=== PATIENT | male | born 1970 ===

== ENCOUNTER 2020-09-14 19:37 | Emergency (ER) | payer OTHER, SELFPAY ==
--- NOTE | 2020-09-14 | ECG_ITS ---
Test Reason : HYPERTENSION Blood Pressure : / mmHG Vent. Rate : 116 BPM Atrial Rate : 117 BPM P-R Int : 134 ms QRS Dur : 096 ms QT Int : 332 ms P-R-T Axes : 052 -01 028 degrees QTc Int : 461 ms Sinus tachycardia Possible Left atrial enlargement Borderline ECG No previous ECGs available Referred By: Generic ED Physician Electronically Signed By:STACEY SORIA MD
[2020-09-14 20:06] LABS: COVID-19 Test Negative (Negative); IDNOW Serial# 9DD0AD1C
[2020-09-14 20:41] VITALS: BP 199/118; PULSE 127; RESP 17; TEMP 36.7; O2SAT 98; BMI 45.3
--- NOTE | 2020-09-14 21:08 | ED.WEAKNESS ---
HPI - Weakness General Chief complaint: Weakness Stated complaint: COVID SYMPTOMS Time Seen by Provider: 09/14/20 20:59 Source: patient Mode of arrival: ambulatory Limitations: no limitations History of Present Illness HPI Narrative: Patient comes emergency room complaining of weakness for 3 days. Patient denies cough, no fever, no chills, no chest pain, complaining of generalized malaise. Earlier this afternoon, patient got tested for COVID which was negative. Patient denies abdominal pain, no nausea vomiting or diarrhea. MD Complaint: generalized weakness Related Data Allergies Allergy/AdvReac Type Severity Reaction Status Date / Time aspirin Allergy Unknown Verified 09/14/20 20:44 Review of Systems Review of Systems: Constitutional : No Weight loss, No Fever, No Chills, No Night Sweats, complaining of fatigue and generalized malaise ENT/Mouth : No Hearing loss, No Ear Pain, No Nasal Congestion, No Sinus Pain, No Hoarseness, No sore throat, No Rhinorrhea, No Swallowing Difficulty Eyes: No Eye Pain, No Swelling, No Redness, No Foreign Body, No Discharge, No Vision Changes Cardiovascular : No Chest Pain, No SOB, No Dyspnea on Exertion, No Orthopnea, No Edema, No Palpitations Respiratory : No Cough, No Sputum, No Wheezing, No Smoke Exposure, No Dyspnea Gastrointestinal : No Nausea, No Vomiting, No Diarrhea, No Constipation, No abdominal Pain, No Hematochezia, No Melena Genitourinary : no irregular bleeding, No Dysuria, No Urinary Frequency, No Hematuria, No Urinary Incontinence, No Urgency, No Flank Pain, No Urinary Flow Changes, No Hesitancy Musculoskeletal : No joint pain, No Myalgias, No Joint Swelling Skin : No Skin Lesions, No rash Neuro : No Weakness, No Numbness, No Paresthesias, No Loss of Consciousness, No Dizziness, No Headache Psych : No Anxiety/Panic, complaining of chronic Depression, No SI/HI/AH/VH, No Social Issues, Heme/Lymph: No Bruising, No Bleeding,No Lymphadenopathy Endocrine : No Polyuria, No Polydipsia, No Temperature Intolerance PMFSH Past Medical History Medical History Anxiety Depressed Diabetes mellitus type 2 in obese High cholesterol HTN (hypertension) Social History Social History Alcohol intake: never Smoking Status: Never smoker Use of substances other than those prescribed or required for medical reasons: No Advance Directives: No Advance Directives Information Provided: No Physical Exam Vital Signs: Vital Signs: Last Vital Signs Temp 99.0 F 09/14/20 22:29 Pulse 99 09/14/20 22:29 Resp 17 09/14/20 22:29 BP 147/72 H 09/14/20 22:29 Pulse Ox 99 09/14/20 22:29 Body Mass Index 45.3 Appearance: Alert. Oriented X3. No acute distress. Eyes: Pupils equal, round and reactive to light. ENT: Pharynx normal. Neck: Normal inspection. Neck supple. No lymph nodes noted. No crepitus CVS: Normal heart rate and rhythm. Pulses normal. Normal S1 and S2 Respiratory: No respiratory distress. Breath sounds normal. No Wheezing. No rales Abdomen: Soft and nontender. No rigidity. No distention. good BS x4 Skin: Skin warm and dry. Normal skin color. Normal skin turgor. Extremities: No lower extremity edema. No lower extremity edema. No Lacerations. No Rash Neuro: Oriented X 3. No motor deficit. No sensory deficit. Moving all extermities. No slurred speech. Course Course Course Narrative: I discussed the labs with the patient, patient feels less anxious. Patient's vitals stable, blood pressure is now 147/22. COVID 19 test was negative. Although patient is weak, patient states that he is able to walk, take care of himself, patient's at bedside who will also help care for the patient. Patient states that he thinks that his depression is getting worse, he will follow up with his primary care physician. Patient denies suicidal or homicidal ideation MDM - Weakness Lab Data Result diagrams: 09/14/20 21:15 09/14/20 21:15 Labs: Lab Results 09/14/20 09/14/20 09/14/20 Range/Units 19:41 21:15 21:15 WBC 10.5 (4.8-10.8) X10*3/uL RBC 5.80 (4.60-5.80) X10*6/uL Hgb 16.3 (14.0-18.0) g/dl Hct 49.6 (42-52) % MCV 85.5 (80-98) fL MCH 28.1 (27.0-33.0) pg MCHC 32.9 (31.0-36.0) g/dl RDW 15.0 (11.0-16.0) % Plt Count 221 (160-400) X10*3/uL MPV 10.4 (9.4-12.4) fL Immature Gran % (Auto) 0.3 (0.0-0.4) % Neut % (Auto) 77.8 H (45-73) % Lymph % (Auto) 14.2 L (20-40) % [place] % (Auto) 7.1 (2-11) % Eos % (Auto) 0.3 (0-4) % Baso % (Auto) 0.3 (0-2) % Lymph # (Auto) 1.5 (1.2-4.9) X10*3/uL [place] # (Auto) 0.7 (0.1-1.2) X10*3/uL Eos # (Auto) 0.0 (0.0-0.4) X10*3/uL Baso # (Auto) 0.0 (0.0-0.2) X10*3/uL Abs Immat Gran (auto) 0.03 (0.00-0.03) X10*3/uL Absolute Neuts (auto) 8.2 (2.0-8.3) X10*3/uL Absolute Nucleated RBC 0.000 (0.0-0.012) X10*3/uL Nucleated RBC % (auto) 0.0 (0.0-0.2) /100WBC Sodium 140 (135-145) mmol/L Potassium 3.7 (3.3-5.1) mmol/L Chloride 105 (96-108) mmol/L Carbon Dioxide 22 (22-29) mmol/L Anion Gap 17 (12-20) BUN 20 H (9-16) mg/dL Creatinine 0.98 (0.5-1.4) mg/dL Estim Creat Clear Calc 134.3 Estimated GFR > 60 Random Glucose 160 H (60-115) mg/dL Calcium 9.4 (8.4-10.2) mg/dL Total Bilirubin 0.5 (0.0-1.0) mg/dL Direct Bilirubin 0.2 (0.0-0.5) mg/dL AST 23 (5-37) U/L ALT 43 H (0-40) U/L Alkaline Phosphatase 96 (39-117) U/L Total Protein 7.3 (6.5-8.0) g/dL Albumin 4.4 (3.5-5.0) g/dL Lipase 34 (8-78) U/L COVID-19 (SAY) Negative (Negative) COVID-19 Clin Com See Note ECG Data Attestation: I personally reviewed and interpreted this ECG as follows: (Sinus tachycardia, heart rate 116, no ST segment depression or elevation, not to inversion, QTC 461) Discharge Plan Discharge Clinical Impression: Generalized weakness Patient Disposition: Home, Self-Care Instructions: Weakness (ED) Additional Instructions: Please follow-up with your primary care physician tomorrow. If you have any worsening or new symptoms, please return to the emergency room or call 911 Interventions: ED Discharge Assessment Last Done: 09/14/20 22:52 Discharge Date/Time: 09/14/20 22:52
[2020-09-14 21:19] LABS: MANUAL DIFF FLAG NO
[2020-09-14 21:23] LABS: Basophils Percent Auto 0.3 % (0-2); Eosinophils Percent Auto 0.3 % (0-4); Hematocrit 49.6 % (42-52); Hemoglobin 16.3 g/dl (14.0-18.0); Imm Gran Abs Auto 0.03 X10*3/uL (0.00-0.03); Imm Gran Pct Auto 0.3 % (0.0-0.4); Lymphocytes Absolute Auto 1.5 X10*3/uL (1.2-4.9); Lymphocytes Percent Auto 14.2 % (20-40); Mean Corpuscular HGB Conc 32.9 g/dl (31.0-36.0); Mean Corpuscular Hemoglobin 28.1 pg (27.0-33.0); Mean Corpuscular Volume 85.5 fL (80-98); Mean Platelet Volume 10.4 fL (9.4-12.4); Monocytes Absolute Auto 0.7 X10*3/uL (0.1-1.2); Monocytes Percent Auto 7.1 % (2-11); Neutrophils Absolute Auto 8.2 X10*3/uL (2.0-8.3); Neutrophils Percent Auto 77.8 % (45-73); Platelet Count 221 X10*3/uL (160-400); White Blood Count 10.5 X10*3/uL (4.8-10.8)
[2020-09-14 21:45] LABS: Alanine Aminotransferase 43 U/L (0-40); Albumin Level 4.4 g/dL (3.5-5.0); Alkaline Phosphatase 96 U/L (39-117); Anion Gap 17 (12-20); Aspartate Amino Transferase 23 U/L (5-37); Bilirubin Direct 0.2 mg/dL (0.0-0.5); Bilirubin Total 0.5 mg/dL (0.0-1.0); Blood Urea Nitrogen 20 mg/dL (9-16); Calcium 9.4 mg/dL (8.4-10.2); Carbon Dioxide 22 mmol/L (22-29); Chloride 105 mmol/L (96-108); Creatinine Clr Calc Pharmacy 134.3; Estimated Glomerular Filt Rate > 60; Glucose Random 160 mg/dL (60-115); Lipase 34 U/L (8-78); Potassium 3.7 mmol/L (3.3-5.1); Sodium 140 mmol/L (135-145); Total Protein 7.3 g/dL (6.5-8.0)
[2020-09-14 22:29] VITALS: BP 147/72; PULSE 99; RESP 17; TEMP 37.2; O2SAT 99
== END 2020-09-14 22:52 | disposition home or self-care (01) ==
PROVIDERS: Emergency Provider Emergency Medicine
DX: R53.1 Weakness (principal); R00.0 Tachycardia, unspecified; Z20.822 Contact with and (suspected) exposure to COVID-19; F41.9 Anxiety disorder, unspecified; E11.9 Type 2 diabetes mellitus without complications; I10 Essential (primary) hypertension
CPT/HCPCS: 36415; 80048; 80076; 83690; 85025; 87635; 93005; 99283; 99284

== ENCOUNTER 2022-08-24 17:50 | Emergency (ER) | payer OTHER, SELFPAY ==
[2022-08-24 18:25] VITALS: BP 173/104; PULSE 108; RESP 18; TEMP 36.8; O2SAT 98; BMI 43.9
--- NOTE | 2022-08-24 18:25 | ED_ITS ---
HPI - Abdominal Pain General Chief Complaint: Abdominal Pain <YUSUF Mclean - Last Filed: 08/24/22 18:30> Stated Complaint: Severe, sharp abd pain, bloody stool, weak <YUSUF Mclean - Last Filed: 08/24/22 18:30> Time Seen by Provider: 08/24/22 21:37 <YUSUF Mclean - Last Filed: 08/24/22 18:30> Source: patient <Erick Marie MD - Last Filed: 08/25/22 03:01> Mode of arrival: ambulatory <Erick Marie MD - Last Filed: 08/25/22 03:01> Limitations: no limitations <Erick Marie MD - Last Filed: 08/25/22 03:01> History of Present Illness HPI narrative: Patient history of peptic ulcer disease status post surgery about 25 years ago usually asymptomatic taking Prilosec 40 mg daily noticed dark and lose stool for last 3 days getting news reporter now with epigastric pain no nausea no vomiting patient took Pepto-Bismol but stools were dark before he took Pepto-Bismol. No nausea no vomiting no dizziness labs were done prior to my evaluation showed hemoglobin of 16.2 with hematocrit 50.2 same as in 2020 patient chemistries normal with lipase normal vital stable. Pain gets worse when patient eats something <Erick Marie MD - Last Filed: 08/25/22 03:01> Related Data Home Medications: Previous Rx's Medication Instructions Recorded sucralfate 1 gram tablet 1 g PO TID #90 tabs 08/24/22 <YUSUF Mclean - Last Filed: 08/24/22 18:30> Allergies/Adverse Reactions: Allergies Allergy/AdvReac Type Severity Reaction Status Date / Time aspirin Allergy Unknown Verified 09/14/20 20:44 <YUSUF Mclean - Last Filed: 08/24/22 18:30> Review of Systems Review of Systems Yes all other systems are reviewed and are negative <Erick Marie MD - Last Filed: 08/25/22 03:01> PMFSH Past Medical History Medical History: Medical History Anxiety Depressed Diabetes mellitus type 2 in obese High cholesterol HTN (hypertension) <YUSUF Mclean - Last Filed: 08/24/22 18:30> Social History Social History: Social History Alcohol intake: never Smoked in Last 30 Days: No Use of substances other than those prescribed or required for medical reasons: No Advance Directives: Yes Advance Directives Information Provided: Yes Advance Directives on File: No <YUSUF Mclean - Last Filed: 08/24/22 18:30> Physical Exam ED Vital Signs: Vital Signs - 24 hr 08/24/22 18:25 08/24/22 21:53 Temperature 98.2 F 98.0 F Pulse Rate 108 H 99 Respiratory Rate 18 18 Blood Pressure 173/104 H 144/84 H Pulse Oximetry 98 95 Oxygen Delivery Method Room Air Room Air BMI result Body Mass Index 43.9 <YUSUF Mclean - Last Filed: 08/24/22 18:30> Vital Signs - 24 hr 08/24/22 18:25 08/24/22 21:53 Temperature 98.2 F 98.0 F Pulse Rate 108 H 99 Respiratory Rate 18 18 Blood Pressure 173/104 H 144/84 H Pulse Oximetry 98 95 Oxygen Delivery Method Room Air Room Air BMI result Body Mass Index 43.9 <Erick Marie MD - Last Filed: 08/25/22 03:01> Appearance: Alert. Oriented X3. No acute distress. Eyes: PERRLA, no pallor ENT: Pharynx normal. Oral Mucosa moist Neck: Normal inspection. Neck supple. CVS: Normal heart rate and rhythm. Pulses normal. Respiratory: No respiratory distress. Equal air entry bilateral, no wheezi ng/rales/rhonchi Abdomen: Soft and tender in epigastric. Bowel sounds are present, no mass palpable, no CVA tenderness rectal: Patient refused Skin: Skin warm and dry. Normal skin color. Normal skin turgor. Extremities: No lower extremity edema. No calf tenderness Neuro: Oriented X 3. No motor deficit. <Erick Marie MD - Last Filed: 08/25/22 03:01> Course Course Course Narrative: RME - 51 yo Urdu speaking male with history of obesity, HTN, anxiety/depression, sciatica presents to the ER for evaluation of severe, sharp central abdominal pains along with several episodes of black bowel movements that started 3 days ago. Reports history of duodenal ulcers several years ago associated with anemia and required transfusion. Feels dizzy and weak. BP elevated 210/112, HR 110 in triage. Plan: labs, coags, will need ERIC and PPI - r/o UGIB <YUSUF Mclean - Last Filed: 08/24/22 18:30> Medical Decision Making Medical Decision Making MDM Narrative: Patient with peptic ulcer disease with dark stool with stable H&H patient refused rectal exam and says that stool are getting news reporter. Patient advised to follow with architectural engineering teacher for endoscopy.. <Erick Marie MD - Last Filed: 08/25/22 03:01> Lab Data [facility] Lab Attestation statement: I reviewed the patient's lab results. <Erick Marie MD - Last Filed: 08/25/22 03:01> Result Diagrams: 08/24/22 18:39 08/24/22 18:39 <YUSUF Mclean - Last Filed: 08/24/22 18:30> Labs: Lab Results 08/24/22 08/24/22 08/24/22 Range/Units 18:39 18:39 18:39 WBC 7.9 (4.8-10.8) X10*3/uL RBC 5.73 (4.60-5.80) X10*6/uL Hgb 16.2 (14.0-18.0) g/dl Hct 50.2 (42.0-52.0) % MCV 87.6 (80.0-98.0) fL MCH 28.3 (27.0-33.0) pg MCHC 32.3 (31.0-36.0) g/dl RDW 15.2 (11.0-16.0) % Plt Count 223 (160-400) X10*3/uL MPV 10.0 (9.4-12.4) fL Immature Gran % (Auto) 0.1 (0.0-0.4) % Neut % (Auto) 67.1 (45-73) % Lymph % (Auto) 23.1 (20-40) % [place] % (Auto) 7.4 (2-11) % Eos % (Auto) 1.9 (0-4) % Baso % (Auto) 0.4 (0-2) % Lymph # (Auto) 1.8 (1.2-4.9) X10*3/uL [place] # (Auto) 0.6 (0.1-1.2) X10*3/uL Eos # (Auto) 0.2 (0.0-0.4) X10*3/uL Baso # (Auto) 0.0 (0.0-0.2) X10*3/uL Abs Immat Gran (auto) 0.01 (0.00-0.03) X10*3/uL Absolute Neuts (auto) 5.3 (2.0-8.3) x10*3/uL Absolute Nucleated RBC 0.000 (0.0-0.012) X10*3/uL Nucleated RBC % (auto) 0.0 (0.0-0.2) /100WBC PT 11.5 (10.0-13.1) SEC INR 1.0 (0.9-1.1) APTT 32.1 (26.0-36.4) SEC Sodium 141 (135-145) mmol/L Potassium 3.9 (3.3-5.1) mmol/L Chloride 108 (96-108) mmol/L Carbon Dioxide 27 (22-29) mmol/L Anion Gap 10 L (12-20) BUN 10 (9-16) mg/dL Creatinine 0.90 (0.5-1.4) mg/dL Estim Creat Clear Calc 140.5 Estimated GFR > 60 Random Glucose 101 (60-115) mg/dL Calcium 8.9 (8.4-10.2) mg/dL Magnesium 2.0 (1.6-2.6) mg/dL Total Bilirubin 0.5 (0.0-1.0) mg/dL Direct Bilirubin < 0.2 (0.0-0.5) mg/dL AST 20 (5-37) U/L ALT 31 (0-40) U/L Alkaline Phosphatase 108 (39-117) U/L Total Protein 6.9 (6.5-8.0) g/dL Albumin 4.0 (3.5-5.0) g/dL Lipase 18 (8-78) U/L Urine Color Urine Appearance Urine pH (5.0-9.0) Ur Specific [place] (1.005-1.025) Urine Protein (Neg-Trace) mg/dL Urine Glucose (UA) (Negative) mg/dL Urine Ketones (Negative) mg/dL Urine Blood (Negative) Urine Nitrite (Negative) Ur Leukocyte Esterase (Negative) 08/24/22 Range/Units 21:49 WBC (4.8-10.8) X10*3/uL RBC (4.60-5.80) X10*6/uL Hgb (14.0-18.0) g/dl Hct (42.0-52.0) % MCV (80.0-98.0) fL MCH (27.0-33.0) pg MCHC (31.0-36.0) g/dl RDW (11.0-16.0) % Plt Count (160-400) X10*3/uL MPV (9.4-12.4) fL Immature Gran % (Auto) (0.0-0.4) % Neut % (Auto) (45-73) % Lymph % (Auto) (20-40) % [place] % (Auto) (2-11) % Eos % (Auto) (0-4) % Baso % (Auto) (0-2) % Lymph # (Auto) (1.2-4.9) X10*3/uL [place] # (Auto) (0.1-1.2) X10*3/uL Eos # (Auto) (0.0-0.4) X10*3/uL Baso # (Auto) (0.0-0.2) X10*3/uL Abs Immat Gran (auto) (0.00-0.03) X10*3/uL Absolute Neuts (auto) (2.0-8.3) x10*3/uL Absolute Nucleated RBC (0.0-0.012) X10*3/uL Nucleated RBC % (auto) (0.0-0.2) /100WBC PT (10.0-13.1) SEC INR (0.9-1.1) APTT (26.0-36.4) SEC Sodium (135-145) mmol/L Potassium (3.3-5.1) mmol/L Chloride (96-108) mmol/L Carbon Dioxide (22-29) mmol/L Anion Gap (12-20) BUN (9-16) mg/dL Creatinine (0.5-1.4) mg/dL Estim Creat Clear Calc Estimated GFR Random Glucose (60-115) mg/dL Calcium (8.4-10.2) mg/dL Magnesium (1.6-2.6) mg/dL Total Bilirubin (0.0-1.0) mg/dL Direct Bilirubin (0.0-0.5) mg/dL AST (5-37) U/L ALT (0-40) U/L Alkaline Phosphatase (39-117) U/L Total Protein (6.5-8.0) g/dL Albumin (3.5-5.0) g/dL Lipase (8-78) U/L Urine Color Yellow Urine Appearance Clear Urine pH 5.5 (5.0-9.0) Ur Specific [place] >= 1.030 H (1.005-1.025) Urine Protein Trace (Neg-Trace) mg/dL Urine Glucose (UA) Negative (Negative) mg/dL Urine Ketones Negative (Negative) mg/dL Urine Blood Negative (Negative) Urine Nitrite Negative (Negative) Ur Leukocyte Esterase Negative (Negative) <YUSUF Mclean - Last Filed: 08/24/22 18:30> Lab Results 08/24/22 08/24/22 08/24/22 Range/Units 18:39 18:39 18:39 WBC 7.9 (4.8-10.8) X10*3/uL RBC 5.73 (4.60-5.80) X10*6/uL Hgb 16.2 (14.0-18.0) g/dl Hct 50.2 (42.0-52.0) % MCV 87.6 (80.0-98.0) fL MCH 28.3 (27.0-33.0) pg MCHC 32.3 (31.0-36.0) g/dl RDW 15.2 (11.0-16.0) % Plt Count 223 (160-400) X10*3/uL MPV 10.0 (9.4-12.4) fL Immature Gran % (Auto) 0.1 (0.0-0.4) % Neut % (Auto) 67.1 (45-73) % Lymph % (Auto) 23.1 (20-40) % [place] % (Auto) 7.4 (2-11) % Eos % (Auto) 1.9 (0-4) % Baso % (Auto) 0.4 (0-2) % Lymph # (Auto) 1.8 (1.2-4.9) X10*3/uL [place] # (Auto) 0.6 (0.1-1.2) X10*3/uL Eos # (Auto) 0.2 (0.0-0.4) X10*3/uL Baso # (Auto) 0.0 (0.0-0.2) X10*3/uL Abs Immat Gran (auto) 0.01 (0.00-0.03) X10*3/uL Absolute Neuts (auto) 5.3 (2.0-8.3) x10*3/uL Absolute Nucleated RBC 0.000 (0.0-0.012) X10*3/uL Nucleated RBC % (auto) 0.0 (0.0-0.2) /100WBC PT 11.5 (10.0-13.1) SEC INR 1.0 (0.9-1.1) APTT 32.1 (26.0-36.4) SEC Sodium 141 (135-145) mmol/L Potassium 3.9 (3.3-5.1) mmol/L Chloride 108 (96-108) mmol/L Carbon Dioxide 27 (22-29) mmol/L Anion Gap 10 L (12-20) BUN 10 (9-16) mg/dL Creatinine 0.90 (0.5-1.4) mg/dL Estim Creat Clear Calc 140.5 Estimated GFR > 60 Random Glucose 101 (60-115) mg/dL Calcium 8.9 (8.4-10.2) mg/dL Magnesium 2.0 (1.6-2.6) mg/dL Total Bilirubin 0.5 (0.0-1.0) mg/dL Direct Bilirubin < 0.2 (0.0-0.5) mg/dL AST 20 (5-37) U/L ALT 31 (0-40) U/L Alkaline Phosphatase 108 (39-117) U/L Total Protein 6.9 (6.5-8.0) g/dL Albumin 4.0 (3.5-5.0) g/dL Lipase 18 (8-78) U/L Urine Color Urine Appearance Urine pH (5.0-9.0) Ur Specific [place] (1.005-1.025) Urine Protein (Neg-Trace) mg/dL Urine Glucose (UA) (Negative) mg/dL Urine Ketones (Negative) mg/dL Urine Blood (Negative) Urine Nitrite (Negative) Ur Leukocyte Esterase (Negative) 08/24/22 Range/Units 21:49 WBC (4.8-10.8) X10*3/uL RBC (4.60-5.80) X10*6/uL Hgb (14.0-18.0) g/dl Hct (42.0-52.0) % MCV (80.0-98.0) fL MCH (27.0-33.0) pg MCHC (31.0-36.0) g/dl RDW (11.0-16.0) % Plt Count (160-400) X10*3/uL MPV (9.4-12.4) fL Immature Gran % (Auto) (0.0-0.4) % Neut % (Auto) (45-73) % Lymph % (Auto) (20-40) % [place] % (Auto) (2-11) % Eos % (Auto) (0-4) % Baso % (Auto) (0-2) % Lymph # (Auto) (1.2-4.9) X10*3/uL [place] # (Auto) (0.1-1.2) X10*3/uL Eos # (Auto) (0.0-0.4) X10*3/uL Baso # (Auto) (0.0-0.2) X10*3/uL Abs Immat Gran (auto) (0.00-0.03) X10*3/uL Absolute Neuts (auto) (2.0-8.3) x10*3/uL Absolute Nucleated RBC (0.0-0.012) X10*3/uL Nucleated RBC % (auto) (0.0-0.2) /100WBC PT (10.0-13.1) SEC INR (0.9-1.1) APTT (26.0-36.4) SEC Sodium (135-145) mmol/L Potassium (3.3-5.1) mmol/L Chloride (96-108) mmol/L Carbon Dioxide (22-29) mmol/L Anion Gap (12-20) BUN (9-16) mg/dL Creatinine (0.5-1.4) mg/dL Estim Creat Clear Calc Estimated GFR Random Glucose (60-115) mg/dL Calcium (8.4-10.2) mg/dL Magnesium (1.6-2.6) mg/dL Total Bilirubin (0.0-1.0) mg/dL Direct Bilirubin (0.0-0.5) mg/dL AST (5-37) U/L ALT (0-40) U/L Alkaline Phosphatase (39-117) U/L Total Protein (6.5-8.0) g/dL Albumin (3.5-5.0) g/dL Lipase (8-78) U/L Urine Color Yellow Urine Appearance Clear Urine pH 5.5 (5.0-9.0) Ur Specific [place] >= 1.030 H (1.005-1.025) Urine Protein Trace (Neg-Trace) mg/dL Urine Glucose (UA) Negative (Negative) mg/dL Urine Ketones Negative (Negative) mg/dL Urine Blood Negative (Negative) Urine Nitrite Negative (Negative) Ur Leukocyte Esterase Negative (Negative) <Erick Marie MD - Last Filed: 08/25/22 03:01> Medications Administered Discontinued Medications Generic Name Dose Route Start Last Admin Trade Name Freq PRN Reason Stop Dose Admin Al Hydroxide/Mg Hydroxide 30 ml 08/24/22 22:01 08/24/22 22:37 Magnesium Hydrox/Alum Hydrox 30 Ml Oral.Susp PO 08/24/22 22:02 30 ml ONCE ONE Administration Dicyclomine HCl 20 mg 08/24/22 22:01 08/24/22 22:37 Dicyclomine Hcl 10 Mg Capsule PO 08/24/22 22:02 20 mg ONCE ONE Administration Lidocaine HCl 15 ml 08/24/22 22:01 08/24/22 22:37 Lidocaine Hcl Viscous 2 % 15 Ml Solution MUCOUS MEM 08/24/22 22:02 15 ml ONCE ONE Administration <YUSUF Mclean - Last Filed: 08/24/22 18:30> Medications Administered Discontinued Medications Generic Name Dose Route Start Last Admin Trade Name Vincenzo PRN Reason Stop Dose Admin Al Hydroxide/Mg Hydroxide 30 ml 08/24/22 22:01 08/24/22 22:37 Magnesium Hydrox/Alum Hydrox 30 Ml Oral.Susp PO 08/24/22 22:02 30 ml ONCE ONE Administration Dicyclomine HCl 20 mg 08/24/22 22:01 08/24/22 22:37 Dicyclomine Hcl 10 Mg Capsule PO 08/24/22 22:02 20 mg ONCE ONE Administration Lidocaine HCl 15 ml 08/24/22 22:01 08/24/22 22:37 Lidocaine Hcl Viscous 2 % 15 Ml Solution MUCOUS MEM 08/24/22 22:02 15 ml ONCE ONE Administration <Erick Marie MD - Last Filed: 08/25/22 03:01> Discharge Plan Discharge Clinical Impression: Peptic ulcer disease <YUSUF Mclean - Last Filed: 08/24/22 18:30> Patient Disposition: Home, Self-Care <YUSUF Mclean - Last Filed: 08/24/22 18:30> Instructions: Peptic Ulcer (ED) <YUSUF Mclean - Last Filed: 08/24/22 18:30> Additional Instructions: Avoid spicy and fried food Increased dose of Prilosec to 40 mg twice daily Start taking sucralfate 1 tablet half an hour prior to meals Follow-up with architectural engineering teacher for further evaluation including last couple Report to the ER if vomiting blood <YUSUF Mclean - Last Filed: 08/24/22 18:30> Prescriptions: New sucralfate 1 gram tablet 1 g PO TID Qty: 90 0RF <YUSUF Mclean - Last Filed: 08/24/22 18:30> Referrals: Eric Segal [Physician] - 1 week <YUSUF Mclean - Last Filed: 08/24/22 18:30> Interventions: ED Discharge Assessment Last Done: 08/24/22 22:45 <YUSUF Mclean - Last Filed: 08/24/22 18:30> Discharge Date/Time: 08/24/22 22:46 <YUSUF Mclean - Last Filed: 08/24/22 18:30>
[2022-08-24 18:52] LABS: MANUAL DIFF FLAG NO
[2022-08-24 18:58] LABS: Basophils Percent Auto 0.4 % (0-2); Eosinophils Absolute Auto 0.2 X10*3/uL (0.0-0.4); Eosinophils Percent Auto 1.9 % (0-4); Hematocrit 50.2 % (42.0-52.0); Hemoglobin 16.2 g/dl (14.0-18.0); Imm Gran Abs Auto 0.01 X10*3/uL (0.00-0.03); Imm Gran Pct Auto 0.1 % (0.0-0.4); Lymphocytes Absolute Auto 1.8 X10*3/uL (1.2-4.9); Lymphocytes Percent Auto 23.1 % (20-40); Mean Corpuscular HGB Conc 32.3 g/dl (31.0-36.0); Mean Corpuscular Hemoglobin 28.3 pg (27.0-33.0); Mean Corpuscular Volume 87.6 fL (80.0-98.0); Monocytes Absolute Auto 0.6 X10*3/uL (0.1-1.2); Monocytes Percent Auto 7.4 % (2-11); Neutrophils Absolute Auto 5.3 x10*3/uL (2.0-8.3); Neutrophils Percent Auto 67.1 % (45-73); Platelet Count 223 X10*3/uL (160-400); Red Blood Count 5.73 X10*6/uL (4.60-5.80); Red Cell Distribution Width 15.2 % (11.0-16.0); White Blood Count 7.9 X10*3/uL (4.8-10.8)
[2022-08-24 19:05] LABS: Prothrombin Time 11.5 SEC (10.0-13.1)
[2022-08-24 19:08] LABS: Partial Thromboplastin Time 32.1 SEC (26.0-36.4)
[2022-08-24 19:21] LABS: Alanine Aminotransferase 31 U/L (0-40); Alkaline Phosphatase 108 U/L (39-117); Anion Gap 10 (12-20); Aspartate Amino Transferase 20 U/L (5-37); Bilirubin Direct < 0.2 mg/dL (0.0-0.5); Bilirubin Total 0.5 mg/dL (0.0-1.0); Blood Urea Nitrogen 10 mg/dL (9-16); Calcium 8.9 mg/dL (8.4-10.2); Carbon Dioxide 27 mmol/L (22-29); Chloride 108 mmol/L (96-108); Creatinine Clr Calc Pharmacy 140.5; Estimated Glomerular Filt Rate > 60; Glucose Random 101 mg/dL (60-115); Lipase 18 U/L (8-78); Potassium 3.9 mmol/L (3.3-5.1); Sodium 141 mmol/L (135-145); Total Protein 6.9 g/dL (6.5-8.0)
[2022-08-24 21:53] VITALS: BP 144/84; PULSE 99; RESP 18; TEMP 36.7; O2SAT 95
[2022-08-24 21:57] LABS: Appearance Urine Clear; Color Urine Yellow; Glucose Urine UA Negative (Negative); Leukocyte Esterase Urine Negative (Negative); Nitrite Urine Negative (Negative); PH 5.5 (5.0-9.0); Specific Gravity - Urine >= 1.030 (1.005-1.025); Urine Blood Negative (Negative); Urine Ketones Negative (Negative); Urine Protein Trace mg/dL (Neg-Trace)
[2022-08-24] MEDS: Magnesium Hydrox/Alum Hydrox 30 ML ORAL.SUSP PO (22:37)
[2022-08-24] MEDS: Dicyclomine HCl 10 MG CAPSULE 20 MG PO (22:37)
[2022-08-24] MEDS: Lidocaine HCl Viscous 2 % 15 ML SOLUTION MUCOUS MEM (22:37)
== END 2022-08-24 22:46 | disposition home or self-care (01) ==
PROVIDERS: Physician Assistant; Emergency Provider Internal Medicine
DX: K26.9 Duodenal ulcer, unspecified as acute or chronic, without hemorrhage or perforation (principal); I10 Essential (primary) hypertension; E11.9 Type 2 diabetes mellitus without complications; E78.5 Hyperlipidemia, unspecified; E66.9 Obesity, unspecified; Z68.41 Body mass index [BMI] 40.0-44.9, adult
CPT/HCPCS: 36415; 80048; 80076; 81003; 83690; 83735; 85025; 85610; 85730; 99283; 99284

== ENCOUNTER 2023-04-30 10:07 | Outpatient (AMB) | payer MEDICARE, MEDICAID, SELFPAY ==
[2023-04-30 10:08] VITALS: BP 168/98; PULSE 89; O2SAT 96; BMI 42.6
--- NOTE | 2023-04-30 10:08 | A.OFFPC_ITS ---
Vital Signs 04/30/23 10:08 Height 6 ft Weight 314 lb BMI 42.6 BP 168/98 H Blood Pressure Location Lt brachial Position Sitting Pulse 89 Pulse Source Pulse Oximeter Pulse Oximetry (%) 96 Oxygen Delivery Method Room Air Intake Visit Reasons: est care Intake Note: 52 y/o male here to establish care Back Stayer Required: Yes Back Stayer Language: Public Health Director Name: Estefanía [id number] Information Interpreted: non-clinical & clinical Allergies No Known Allergies Allergy (Verified 04/30/23 10:32) Medication List - Last Reconciled 04/30/23 by DANIEL Dobbs acetaminophen 500 mg PO Q6H PRN amlodipine 10 mg PO DAILY atorvastatin 20 mg PO DAILY diclofenac sodium 1% 1 - 2 grams topical BID duloxetine 30 mg PO DAILY famotidine 20 mg PO DAILY lidocaine 5% patches topical metformin ER 500 mg PO QAM metoprolol succinate ER 100 mg PO DAILY Tobacco use date assessed: 04/30/23 Dental Screening Dental Screen Date: 04/30/23 Did you have a dental visit in the last 12 months?: No Did you have a dental problem in the last 6 months where you did not have access to dental care?: No HPI HPI Comments History of Present Illness Details 52-year-old male new patient presents to day to establish care. Past medical history significant for hypertension, hypercholesteremia, type 2 diabetes mellitus GERD, depression, anxiety and obstructive sleep apnea, left- sided sciatica pain. Patient uses CPAP machine for greater than 4 hours night and benefits from this. Patient requesting referral to pulmonology as he requires new CPAP supplies, referral entered. Hemoglobin A1c 6.5% today. Blood pressure elevated office today 168/98. Patient requesting refill on Lidoderm patches, refill sent to patient's pharmacy. previous patient: [facility]. [facility] Medical History (Updated 04/30/23 @ 10:59 by DANIEL Dobbs) Duodenal ulcer Meniscus, lateral, derangement Left sided sciatica Gout Vitamin D deficiency Family History (Updated 04/30/23 @ 10:39 by DANIEL Dobbs) Mother No problems noted. Father No problems noted. Social History (Updated 04/30/23 @ 10:40 by DANIEL Dobbs) Alcohol intake: never Patient Tobacco Use Status: Never used Tobacco e-Cigarette/Vaping Use: Never Used Use of substances other than those prescribed or required for medical reasons: No service: No Cognitive needs: No Hearing needs: No Vision needs: No Questionnaire PHQ-9 Over the last 2 weeks, how often have you been bothered by any of the following problems? 1. Little interest or pleasure in doing things: several days 2. Feeling down, depressed, or hopeless: several days 3. Trouble falling or staying asleep, or sleeping too much: several days 4. Feeling tired or having little energy: not at all 5. Poor appetite or overeating: not at all 6. Feeling bad about yourself - or that you are a failure or have let yourself or your family down: not at all 7. Trouble concentrating on things, such as reading the newspaper or watching television: not at all 8. Moving or speaking so slowly that other people could have noticed. Or the opposite - being so fidgety or restless that you have been moving around a lot more than usual: not at all 9. Thoughts that you would be better off or of hurting yourself in some way: not at all Total score: 3 Depression Screening Interpretation: Negative Depression Screening Done: Yes 15854 - PHQ-9 Billing: Yes Source: Developed by Drs. Jos Field, Keesha Green, Lincoln Maldonado and colleagues, with an educational ajay from [employer]. Thrive Questionnaire Date Thrive assessed: 04/30/23 I am a: Patient What is your living situation today?: I have a steady place to live Within the past 12 months, did the food you bought not last and you didn't have the money to get more?: Never true Within the past 12 months, did you worry whether your food would run out before you got money to buy more?: Never true Do you have trouble paying for medicines?: No Do you have trouble getting transportation to medical appointments?: No Do you have trouble paying your heating and electricity bill?: No Do you have trouble taking care of your child, family member or friend?: No Do you have trouble with day-to-day activities such as bathing, preparing meals, shopping, managing finances, etc.?: No Are you currently unemployed and looking for a job?: No Are you interested in more education?: No AUDIT C Alcohol Use Questionnaire (AUDIT-C) 1. How often do you have a drink containing alcohol?: Never 3. How often do you have six or more drinks on one occasion?: Never Total Score: 0 VAN-7 AMB Questionnaire VAN-7 Date VAN - 7 assessed: 04/30/23 Feeling nervous, anxious, or on edge: 1 = Several days Not being able to stop or control worryin = Several days Worrying too much about different things: 1 = Several days Trouble relaxin = Not at all Being so restless that it is hard to sit still: 0 = Not at all Becoming easily annoyed or irritable: 0 = Not at all Feeling afraid as if something awful might happen: 0 = Not at all Total VAN-7 score (0-4 normal; 5-9 mild; 10-14 moderate; 15-21 severe): 3 Source: Developed by Drs. Jos Field, Keesha Green, Lincoln Maldonado and colleagues, with an educational ajay from [employer]. VAN-7 Assessment Billing VAN-7 Assessment Tool: VAN-7 Assessment 08608 Review of Systems Const Denies chills, Denies fatigue, Denies fever(s) and Denies poor appetite Eyes Denies no additional complaints ENT Reports Normal hearing present Card Denies chest pain, Denies syncope, Denies rapid heart rate and Denies dyspnea Resp Denies cough and Denies dyspnea GI Denies change in stool character, Denies constipation, Denies diarrhea, Denies nausea and Denies vomiting Denies dysuria, Denies urinary frequency and Denies urinary urgency Neuro Reports Normal hearing present, Denies confusion and Denies syncope Psych Denies confusion Endo Denies fatigue Physical exam (Primary Care) Vital Signs: Last Vital Signs Pulse 89 04/30/23 10:08 BP 168/98 H 04/30/23 10:08 Pulse Ox 96 04/30/23 10:08 Oxygen Delivery Method Room Air 04/30/23 10:08 BMI result Body Mass Index 42.6 Tobacco/Smoking Status: Tobacco use Status Tobacco use date assessed 04/30/23 04/30/23 10:10 Patient Tobacco Use Status Never used Tobacco 04/30/23 10:40 e-Cigarette/Vaping Use Never Used 04/30/23 10:40 PHQ-9: PHQ-9 Score PHQ-9: Total score 3 04/30/23 10:57 Depression Screening Interpretation: Negative Thrive Assessment: Date of Thrive Assessment Date Thrive assessed 04/30/23 04/30/23 10:10 Const General: No confusion Orientation/consciousness: No confusion HENMT Head: Yes normocephalic and Yes atraumatic Eyes Conjunctivae: conjunctivae normal Chest Chest palpation & inspection: normal inspection of the chest Resp Effort & Inspection: normal respiratory effort Auscultation: clear to auscultation bilaterally, no crackles, no rhonchi and no wheezes Cardio Rate: regular rate Rhythm: regular rhythm Heart sounds: S1 normal heart sound present and S2 normal heart sound present GI Inspection: Yes normal to inspection Neuro General: No confusion Cranial nerves: Yes Normal hearing present Extrem General: No edema Results AMB Hemoglobin A1c AMB Hemoglobin A1c 6.5 % Last Edit by SKYLAR Bellamy on 04/30/23 10:39 Results Reviewed Results Reviewed: Laboratory Last Values Hgb A1c (Clinic) 6.5 % (4.0-6.0) H 04/30/23 10:22 Assessment and Plan Assessment & Plan (1) Hypertension: Code(s): I10 - Essential (primary) hypertension Plan: Continue amlodipine 10 mg daily and metoprolol 100 mg daily. Follow low-salt diet and exercise. Patient declines the need for blood pressure medication this time. (2) Type 2 diabetes mellitus: Code(s): E11.9 - Type 2 diabetes mellitus without complications Plan: Hemoglobin A1c 6.5% Patient educated to decrease the amount of carbohydrate intake such as pasta, bread, rice and potatoes are all sugar in addition to the sweet stuff. Remember that fruits are good but they also have sugar. (3) Hypercholesteremia: Code(s): E78.00 - Pure hypercholesterolemia, unspecified Plan: Continue on atorvastatin 20 mg daily. Follow low-cholesterol diet. Fasting lipid panel ordered. (4) GERD (gastroesophageal reflux disease): Code(s): K21.9 - Gastro-esophageal reflux disease without esophagitis Plan: Continue on famotidine 20 mg daily. Avoid the foods that cause that, usually spicy foods, tomato products, juices, coffee, soda and foods that you're sensitive to.? After eating do not lie down, allow 3-4 hours before lying down. And keep the head of the bed above 30 degrees to avoid the acid from going up. (5) MARCELINO (obstructive sleep apnea): Code(s): G47.33 - Obstructive sleep apnea (adult) (pediatric) Plan: Referral entered to pulmonology. (6) Depression: Code(s): F32.A - Depression, unspecified Plan: And declined referral to counseling. Currently taking duloxetine 30 mg daily Plan Follow-up in 3 months for physical exam. Orders: Orders AMB Hemoglobin A1c Today Z13.9 - Encounter for screening, unspecified Comprehensive [place]. Panel Fast Today I10 - Essential (primary) hypertension Complete Blood Count Auto Diff Today Z13.0 - Encounter for screening for diseases of the blood and blood-forming organs and certain disorders involving the immune mechanism Lipid Panel Today Z13.220 - Encounter for screening for lipoid disorders TSH reflex Free T4 Today Z13.29 - Encounter for screening for other suspected endocrine disorder Vitamin D 25-OH Total Today Z13.21 - Encounter for screening for nutritional disorder Referrals Pulmonology Referral G47.33 - Obstructive sleep apnea (adult) (pediatric) Medications: New lidocaine 5% (Lidoderm) leave on most painful area for up to 12 hrs 1 patch topical DAILY 30 ea 0RF Coding Level of Care Code New Pt Level 4 (97252) Diagnoses Hypertension I10 Type 2 diabetes mellitus E11.9 Hypercholesteremia E78.00 GERD (gastroesophageal reflux disease) K21.9 MARCELINO (obstructive sleep apnea) G47.33 Depression F32.A Additional Codes VAN-7 Assessment Billing - VAN-7 Assessment Tool: VAN-7 Assessment [id number] ([id number])
== END 2023-04-30 11:08 | disposition home or self-care (01) ==
PROVIDERS: PCP Nurse Practitioner Family; Visit Provider Nurse Practitioner Family
DX: I10 Essential (primary) hypertension (principal); E11.9 Type 2 diabetes mellitus without complications; E78.00 Pure hypercholesterolemia, unspecified; K21.9 Gastro-esophageal reflux disease without esophagitis; G47.33 Obstructive sleep apnea (adult) (pediatric)
CPT/HCPCS: 83036; 99204

== ENCOUNTER 2023-09-23 10:36 | Outpatient (AMB) | payer MEDICARE, MEDICAID, SELFPAY ==
--- NOTE | 2023-09-23 11:00 | A.OFFPC_ITS ---
Vital Signs 09/23/23 11:01 09/23/23 12:29 Height 6 ft Weight 311 lb BMI 42.2 BP 158/90 H 160/90 H Blood Pressure Location Lt brachial Lt brachial Position Sitting Sitting Intake Visit Reasons: Transfer Care from [place] Intake Note: Patient here transfer of care from [place] [employer] Instructor Required: No Accompanied by: Self / Same As Patient Allergies aspirin Adverse Reaction (Severe, Verified 09/23/23 11:20) bleeding Medication List - Last Reconciled 09/23/23 by Nishi Gotti MD amlodipine 10 mg PO DAILY atorvastatin 20 mg PO DAILY diphenhydramine HCl (Allergy Relief (diphenhydramine)) 25 mg PO TID PRN duloxetine 30 mg PO DAILY esomeprazole magnesium 20 mg PO DAILY fexofenadine (Allergy Relief (fexofenadine)) 180 mg PO Q24H lidocaine 5% (Lidoderm) 1 patch topical DAILY metformin ER 500 mg PO QAM metoprolol succinate ER 100 mg PO DAILY Tobacco use date assessed: 09/23/23 Dental Screening Dental Screen Date: 09/23/23 Did you have a dental visit in the last 12 months?: No Did you have a dental problem in the last 6 months where you did not have access to dental care?: No Was dental information given to patient?: Patient has dentist HPI HPI Comments History of Present Illness Details This is a 52-year-old male with hypertension, diabetes mellitus type 2, hyperlipidemia, morbid obesity and mild major depression that comes today to reestablish care. Walks with a cane for gait stability due to chronic low back pain. Blood pressure elevated but he has been out of all his medications for over 3 months. Blood pressure will be recheck in 3 weeks by nurse navigator. A1c within goal. Lipid panel will be order and his LDL goal should be less than 70. He is morbidly obese with a BMI of 42.2 and was advised to diet and exercise to reach BMI goal less than 30. Depression markedly improved with duloxetine. Denies any chest pain or shortness breath. [facility] Medical History (Updated 09/23/23 @ 12:30 by Nishi Gotti MD) Meniscus, lateral, derangement Left sided sciatica Gout Vitamin D deficiency Surgical History Duodenal ulcer Family History Mother Diabetes Father Diabetes Family/Other Mental health disorder Social History Housing: Apartment Alcohol intake: never Patient Tobacco Use Status: Never used Tobacco e-Cigarette/Vaping Use: Never Used Second Hand Smoke Exposure: No service: No Current occupational status: disabled Cognitive needs: Yes Hearing needs: No Vision needs: Yes Questionnaire PHQ-9 Over the last 2 weeks, how often have you been bothered by any of the following problems? 1. Little interest or pleasure in doing things: not at all 2. Feeling down, depressed, or hopeless: several days 3. Trouble falling or staying asleep, or sleeping too much: not at all 4. Feeling tired or having little energy: not at all 5. Poor appetite or overeating: not at all 6. Feeling bad about yourself - or that you are a failure or have let yourself or your family down: not at all 7. Trouble concentrating on things, such as reading the newspaper or watching television: not at all 8. Moving or speaking so slowly that other people could have noticed. Or the opposite - being so fidgety or restless that you have been moving around a lot more than usual: not at all 9. Thoughts that you would be better off or of hurting yourself in some way: not at all Total score: 1 Depression Screening Interpretation: Negative Depression Screening Done: Yes 23284 - PHQ-9 Billing: Yes Source: Developed by Drs. Jos Field, Keesha Green, Lincoln Maldonado and colleagues, with an educational ajay from [employer]. Thrive Questionnaire Date Thrive assessed: 09/23/23 I am a: Patient What is your living situation today?: I have a steady place to live Within the past 12 months, did the food you bought not last and you didn't have the money to get more?: Never true Within the past 12 months, did you worry whether your food would run out before you got money to buy more?: Never true Do you have trouble paying for medicines?: No Do you have trouble getting transportation to medical appointments?: No Do you have trouble paying your heating and electricity bill?: No Do you have trouble taking care of your child, family member or friend?: No Do you have trouble with day-to-day activities such as bathing, preparing meals, shopping, managing finances, etc.?: No Are you currently unemployed and looking for a job?: No Are you interested in more education?: No Please select the resources that you would like help with: None Currently or been in a relationship where the following occur: no concerns reported THRIVE Score: 0 AUDIT C Alcohol Use Questionnaire (AUDIT-C) 1. How often do you have a drink containing alcohol?: Never Total Score: 0 Score Reviewed/Action Taken: No VAN-7 AMB Questionnaire VAN-7 Date VAN - 7 assessed: 09/23/23 Feeling nervous, anxious, or on edge: 0 = Not at all Not being able to stop or control worryin = Not at all Worrying too much about different things: 0 = Not at all Trouble relaxin = Not at all Being so restless that it is hard to sit still: 0 = Not at all Becoming easily annoyed or irritable: 0 = Not at all Feeling afraid as if something awful might happen: 0 = Not at all Total VAN-7 score (0-4 normal; 5-9 mild; 10-14 moderate; 15-21 severe): 0 Source: Developed by Drs. Jos Field, Keesha Green, Lincoln Maldonado and colleagues, with an educational ajay from [employer]. VAN-7 Assessment Billing VAN-7 Assessment Tool: VAN-7 Assessment [id number] Review of Systems Const All systems reviewed & are unremarkable except as noted in HPI and below Eyes Reports no additional complaints, Denies change in vision and Denies other visual disturbances Card Denies chest pain at rest, Denies chest pain with activity, Denies edema, Denies irregular heart rhythm, Denies claudication, Denies dyspnea, Denies dyspnea on exertion, Denies orthopnea, Denies paroxysmal nocturnal dyspnea and Denies slow heart rate Resp Denies cough, Denies dyspnea and Denies dyspnea on exertion GI Denies abdominal pain, Denies change in bowel habits, Denies excessive flatus, Denies nausea and Denies vomiting Denies urinary hesitancy, Denies urinary incontinence and Denies urinary urgency Physical exam (Primary Care) Vital Signs: Last Vital Signs BP 158/90 H 09/23/23 11:01 BMI result Body Mass Index 42.2 Tobacco/Smoking Status: Tobacco use Status Tobacco use date assessed 09/23/23 09/23/23 11:17 Patient Tobacco Use Status Never used Tobacco 09/23/23 11:17 e-Cigarette/Vaping Use Never Used 09/23/23 11:17 PHQ-9: PHQ-9 Score PHQ-9: Total score 1 09/23/23 11:22 Depression Screening Interpretation: Negative Thrive Assessment: Date of Thrive Assessment Date Thrive assessed 09/23/23 09/23/23 11:17 Currently or been in a relationship where the following occur: no concerns reported Resp Effort & Inspection: normal respiratory effort Auscultation: clear to auscultation bilaterally Cardio Jugular venous distension: no JVD Rate: regular rate Rhythm: regular rhythm Heart sounds: S1 normal heart sound present and S2 normal heart sound present Extrem General: Yes full ROM Psych Appearance: grossly normal Results AMB Hemoglobin A1c AMB Hemoglobin A1c 6.2 % Last Edit by SKYLAR Whyte on 09/23/23 11:2 0 Results Reviewed Results Reviewed: Laboratory Last Values Hgb A1c (Clinic) 6.2 % (4.0-6.0) H 09/23/23 11:19 Assessment and Plan Assessment & Plan (1) Mild major depression: Code(s): F32.0 - Major depressive disorder, single episode, mild Plan: Continue duloxetine. (2) Type 2 diabetes mellitus: Code(s): E11.9 - Type 2 diabetes mellitus without complications Plan: Continue metformin. A1c goal is equal or less than 7%. (3) Hyperlipidemia LDL goal <70: Code(s): E78.5 - Hyperlipidemia, unspecified Plan: Continue statins. LDL goal is less than 70. (4) Essential hypertension: Code(s): I10 - Essential (primary) hypertension Plan: Continue amlodipine. Blood pressure goal is equal or less than 130/80. Recheck blood pressure with nurse navigator in 3 weeks. (5) Morbid obesity with BMI of 40.0-44.9, adult: Code(s): E66.01 - Morbid (severe) obesity due to excess calories; Z68.41 - Body mass index [BMI] 40.0-44.9, adult Plan: Start diet and exercise. BMI goal is less than 30. Orders: Orders Comprehensive [place]. Panel Fast Today E11.9 - Type 2 diabetes mellitus without complications AMB Hemoglobin A1c Today E11.9 - Type 2 diabetes mellitus without complications Lipid Panel Today E78.5 - Hyperlipidemia, unspecified Microalbumin, Random (w Creat) Today E11.9 - Type 2 diabetes mellitus without complications Medications: New diphenhydramine HCl (Allergy Relief (diphenhydramine)) 25 mg PO TID 30 days PRN 90 tabs 0RF allergic reaction esomeprazole magnesium 20 mg PO DAILY 90 days 90 tabs 1RF fexofenadine (Allergy Relief (fexofenadine)) 180 mg PO Q24H 90 days 90 tabs 1RF Changed From atorvastatin 20 mg PO DAILY cholesterol E78.5 - Hyperlipidemia, unspecified To atorvastatin 20 mg PO DAILY 90 days 90 tabs 1RF cholesterol E78.5 - Hyperlipidemia, unspecified From duloxetine 30 mg PO DAILY To duloxetine 30 mg PO DAILY 90 days 90 caps 1RF From metformin ER 500 mg PO QAM diabetes mellitus To metformin ER 500 mg PO QAM 90 days 90 tabs 1RF diabetes mellitus From metoprolol succinate ER 100 mg PO DAILY To metoprolol succinate ER 100 mg PO DAILY 90 days 90 tabs 1RF From amlodipine 10 mg PO DAILY I10 - Essential (primary) hypertension To amlodipine 10 mg PO DAILY 90 days 90 tabs 1RF I10 - Essential (primary) hypertension Refilled lidocaine 5% (Lidoderm) leave on most painful area for up to 12 hrs 1 patch topical DAILY 30 ea 0RF Coding Level of Care Code Est Pt Level 4 (83946) Diagnoses Mild major depression F32.0 Type 2 diabetes mellitus E11.9 Hyperlipidemia LDL goal <70 E78.5 Essential hypertension I10 Morbid obesity with BMI of 40.0-44.9, adult E66.01; Z68.41 Additional Codes VAN-7 Assessment Billing - VAN-7 Assessment Tool: VAN-7 Assessment [id number] ([id number]) Time Spent (min) 22
[2023-09-23 11:01] VITALS: BP 158/90; BMI 42.2
[2023-09-23 12:29] VITALS: BP 160/90
== END 2023-09-23 11:32 | disposition home or self-care (01) ==
PROVIDERS: PCP Nurse Practitioner Family; Visit Provider Internal Medicine
DX: E11.69 Type 2 diabetes mellitus with other specified complication (principal); F32.0 Major depressive disorder, single episode, mild; E66.01 Morbid (severe) obesity due to excess calories; Z68.41 Body mass index [BMI] 40.0-44.9, adult; E78.5 Hyperlipidemia, unspecified; I10 Essential (primary) hypertension
CPT/HCPCS: 83036; 99214

== ENCOUNTER 2023-09-24 08:58 | Outpatient (REF) | payer MEDICARE, MEDICAID, SELFPAY ==
[2023-09-24 11:36] LABS: Alanine Aminotransferase 32 U/L (0-40); Alkaline Phosphatase 99 U/L (39-117); Anion Gap 12 (12-20); Aspartate Amino Transferase 26 U/L (5-37); Bilirubin Total 0.4 mg/dL (0.0-1.0); Blood Urea Nitrogen 13 mg/dL (9-16); Calcium 9.5 mg/dL (8.4-10.2); Carbon Dioxide 27 mmol/L (22-29); Chloride 106 mmol/L (96-108); Cholesterol 173 mg/dL (<200); Estimated Glomerular Filt Rate > 60; Glucose Fasting 105 mg/dL (60-99); HDL Cholesterol 40 mg/dL (>40); LDL Cholesterol Calculated 98 mg/dL (<100); Potassium 4.3 mmol/L (3.3-5.1); Sodium 141 mmol/L (135-145); Total Protein 7.2 g/dL (6.5-8.0); Triglycerides 177 mg/dL (<150)
[2023-09-24 12:56] LABS: Creatinine Urine 56.64 mg/dL; Microalbumin Urine < 5.0 mg/L
== END 2023-09-24 08:59 | disposition home or self-care (01) ==
LOC: HO.10HDL 08:58
PROVIDERS: Visit Provider Internal Medicine
DX: E11.9 Type 2 diabetes mellitus without complications (principal); E78.5 Hyperlipidemia, unspecified
CPT/HCPCS: 36415; 80053; 80061; 82043; 82570

== ENCOUNTER 2024-05-02 10:24 | Outpatient (AMB) | payer MEDICARE, MEDICAID, SELFPAY ==
[2024-05-02 10:30] VITALS: BP 160/90; BMI 42.9
--- NOTE | 2024-05-02 10:30 | A.OFFPC_ITS ---
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 Required: No Accompanied by: Self / Same As Patient Allergies aspirin Allergy (Verified 05/02/24 10:39) Unknown Medication List - Last Reconciled 05/02/24 by Nishi Gotti MD amlodipine 10 mg PO DAILY 90 days atorvastatin 40 mg PO BEDTIME 90 days blood sugar diagnostic (FreeStyle Lite Strips) Use 1 test strip once a day blood-glucose meter (FreeStyle Lite Meter kit) As directed diphenhydramine HCl (Allergy Relief (diphenhydramine)) 25 mg PO TID PRN 30 days duloxetine 30 mg PO DAILY 90 days esomeprazole magnesium 20 mg PO DAILY 90 days fexofenadine (Allergy Relief (fexofenadine)) 180 mg PO Q24H 90 days lancets (FreeStyle Lancets) use 1 lancet once a day lidocaine 5% (Lidoderm) 1 patch topical DAILY metformin ER 500 mg PO QAM 90 days metoprolol succinate ER 100 mg PO DAILY 90 days omeprazole 20 mg PO DAILY 90 days sucralfate 1 g PO TID Tobacco use date assessed: 09/23/23 Dental Screening Dental Screen Date: 09/23/23 HPI HPI Comments History of Present Illness Details This is a 53-year-old male with diabetes mellitus type 2, morbid obesity and mild major depression that comes for his physical exam. A1c within goal. He is morbidly obese with a BMI of 42.9 and once a weight management referral for evaluation of weight loss surgery. Depression somewhat stable with duloxetine. Complains of chronic low back pain due to lumbar spondylosis which makes him not able to work. Gabapentin makes him sleepy. I will prescribe a lower dose for him. Diabetic eye exam was 2023. Colonoscopy was done less than 5 years ago and was normal as per patient. [facility] Medical History (Updated 05/02/24 @ 12:27 by Nishi Gotti MD) Diabetes mellitus type 2 in obese Anxiety Depressed High cholesterol HTN (hypertension) Meniscus, lateral, derangement Left sided sciatica Gout Vitamin D deficiency Surgical History Duodenal ulcer Family History (Updated 05/02/24 @ 10:46 by Nishi Gotti MD) Mother Diabetes Father Diabetes Family/Other Mental health disorder Sister Colon cancer Social History Housing: Apartment Alcohol intake: never Patient Tobacco Use Status: Never used Tobacco e-Cigarette/Vaping Use: Never Used Second Hand Smoke Exposure: No service: No Current occupational status: disabled Cognitive needs: Yes Hearing needs: No Vision needs: Yes Questionnaire PHQ-9 Over the last 2 weeks, how often have you been bothered by any of the following problems? 1. Little interest or pleasure in doing things: not at all 2. Feeling down, depressed, or hopeless: not at all 3. Trouble falling or staying asleep, or sleeping too much: not at all 4. Feeling tired or having little energy: not at all 5. Poor appetite or overeating: not at all 6. Feeling bad about yourself - or that you are a failure or have let yourself or your family down: not at all 7. Trouble concentrating on things, such as reading the newspaper or watching television: not at all 8. Moving or speaking so slowly that other people could have noticed. Or the opposite - being so fidgety or restless that you have been moving around a lot more than usual: not at all 9. Thoughts that you would be better off or of hurting yourself in some way: not at all Total score: 0 Depression Screening Interpretation: Negative Depression Screening Done: Yes 33497 - PHQ-9 Billing: Yes Source: Developed by Drs. Jos Field, Keesha Green, Lincoln Maldonado and colleagues, with an educational ajay from [employer] Thrive Questionnaire Date Thrive assessed: 05/02/24 I am a: Patient What is your living situation today?: I have a steady place to live Within the past 12 months, did the food you bought not last and you didn't have the money to get more?: Never true Within the past 12 months, did you worry whether your food would run out before you got money to buy more?: Never true Do you have trouble paying for medicines?: No Do you have trouble getting transportation to medical appointments?: No Do you have trouble paying your heating and electricity bill?: No Do you have trouble taking care of your child, family member or friend?: No Do you have trouble with day-to-day activities such as bathing, preparing meals, shopping, managing finances, etc.?: No Are you currently unemployed and looking for a job?: Yes Are you interested in more education?: Yes Please select the resources that you would like help with: Job search/training and None Currently or been in a relationship where the following occur: No concerns reported THRIVE Score: 0 AUDIT C Alcohol Use Questionnaire (AUDIT-C) 1. How often do you have a drink containing alcohol?: Never Total Score: 0 VAN-7 AMB Questionnaire VAN-7 Date VAN - 7 assessed: 05/02/24 Feeling nervous, anxious, or on edge: 0 = Not at all Not being able to stop or control worryin = Not at all Worrying too much about different things: 0 = Not at all Trouble relaxin = Not at all Being so restless that it is hard to sit still: 0 = Not at all Becoming easily annoyed or irritable: 0 = Not at all Feeling afraid as if something awful might happen: 0 = Not at all Total VAN-7 score (0-4 normal; 5-9 mild; 10-14 moderate; 15-21 severe): 0 Source: Developed by Drs. Jos Field, Keesha Green, Lincoln Maldonado and colleagues, with an educational ajay from [employer] VAN-7 Assessment Billing VAN-7 Assessment Tool: VAN-7 Assessment 30706 Review of Systems Const All systems reviewed & are unremarkable except as noted in HPI and below Card Denies chest pain at rest, Denies chest pain with activity, Denies edema, Denies irregular heart rhythm, Denies claudication, Denies dyspnea, Denies dyspnea on exertion, Denies orthopnea, Denies paroxysmal nocturnal dyspnea and Denies slow heart rate Resp Denies cough, Denies dyspnea and Denies dyspnea on exertion GI Denies abdominal pain, Denies change in bowel habits, Denies excessive flatus, Denies nausea and Denies vomiting Musc Reports back pain Neuro Denies lack of coordination Physical exam (Primary Care) Vital Signs: Last Vital Signs BP 160/90 H 05/02/24 10:30 BMI result Body Mass Index 42.9 BMI Assessment/Plan discussion: High BMI High, discussed plan: lifestyle, weight reduction, dietary and physical activity Tobacco/Smoking Status: Tobacco use Status Tobacco use date assessed 09/23/23 05/02/24 10:34 Patient Tobacco Use Status Never used Tobacco 05/02/24 10:34 e-Cigarette/Vaping Use Never Used 05/02/24 10:34 PHQ-9: PHQ-9 Score PHQ-9: Total score 0 05/02/24 10:42 Depression Screening Interpretation: Negative Thrive Assessment: Date of Thrive Assessment Date Thrive assessed 05/02/24 05/02/24 10:39 Currently or been in a relationship where the following occur: No concerns reported HENMT Head: Yes normal to inspection, Yes normocephalic and Yes atraumatic Ears: external ears normal Eyes General: appearance normal, both eyes and all related structures Eyelids: Yes eyelids normal Conjunctivae: conjunctivae normal Neck Neck: Yes normal visual inspection and Yes supple Resp Effort & Inspection: normal respiratory effort Auscultation: clear to auscultation bilaterally Cardio Jugular venous distension: no JVD Rate: regular rate Rhythm: regular rhythm Heart sounds: S1 normal heart sound present and S2 normal heart sound present GI Inspection: Yes normal to inspection Palpation (GI): Soft to palpation and nontender Auscultation: normal bowel sounds Skin General skin exam: no rashes or lesions noted Neuro General: no focal motor deficits Extrem General: Yes full ROM Psych Appearance: grossly normal Office Procedures Flu Questionnaire Does the patient have a severe egg allergy?: No Results AMB Hemoglobin A1c 2 AMB Hemoglobin A1c 6.5 % Last Edit by SKYLAR Whyte on 05/02/24 10:3 9 Immunizations Fluarix Triv [id number] (PF) 45 mcg (15 mcg x 3)/0.5 mL IM syringe Performing Provider: Nishi Gotti MD [facility] Documented (not given) by: SKYLAR Whyte on 05/02/24 10:36 Reason Not Given: Patient Refused Results Reviewed Results Reviewed: Laboratory Last Values Hgb A1c (Clinic) 6.5 % (4.0-6.0) H 05/02/24 10:36 Coding Level of Care Code Est Pt Level 3 (18700) Est Pt Prev Care 40-64y(99720) Diagnoses Physical exam Z00.00 Morbid obesity with BMI of 40.0-44.9, adult E66.01; Z68.41 Mild major depression F32.0 Type 2 diabetes mellitus without complication, without long-term current use of insulin E11.9 Diabetes mellitus correction insulin use: without correction use Diabetes mellitus complication status: without complication Additional Codes VAN-7 Assessment Billing - VAN-7 Assessment Tool: VAN-7 Assessment 33322 ([id number]) Time Spent (min) 35 Assessment & Plan Assessment & Plan (1) Physical exam: Code(s): Z00.00 - Encounter for general adult medical examination without abnormal findings Category: Medical Plan: Repeat in a year. (2) Morbid obesity with BMI of 40.0-44.9, adult: Code(s): E66.01 - Morbid (severe) obesity due to excess calories; Z68.41 - Body mass index [BMI] 40.0-44.9, adult Category: Medical Plan: Referred to weight management for evaluation of weight loss surgery. BMI goal is less than 30. (3) Mild major depression: Code(s): F32.0 - Major depressive disorder, single episode, mild Category: Medical Plan: Continue duloxetine. 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 A1c goal is equal or less than 7%. Orders: Orders AMB Hemoglobin A1c Today E11.9 - Type 2 diabetes mellitus without complications Microalbumin, Random (w Creat) 4 Months R80.9 - Proteinuria, unspecified Comprehensive [place]. Panel Fast 4 Months E11.9 - Type 2 diabetes mellitus without complications Influenza [id number] Immunization Today Z23 - Encounter for immunization Lipid Panel 4 Months E78.5 - Hyperlipidemia, unspecified Referrals Medical Weight Management Referral E66.01 - Morbid (severe) obesity due to excess calories, Z68.41 - Body mass index [BMI] 40.0-44.9, adult Medications: New gabapentin 400 mg PO TID 90 caps 1RF 30 days
== END 2024-05-02 10:59 | disposition home or self-care (01) ==
LOC: HO.HMCH 10:24
PROVIDERS: PCP Internal Medicine; Visit Provider Internal Medicine
DX: Z00.00 Encounter for general adult medical examination without abnormal findings (principal); E66.01 Morbid (severe) obesity due to excess calories; Z68.41 Body mass index [BMI] 40.0-44.9, adult; F32.0 Major depressive disorder, single episode, mild; E11.9 Type 2 diabetes mellitus without complications; Z23 Encounter for immunization

== ENCOUNTER → 2024-05-02 10:24 | Outpatient (BNVA) | payer MEDICARE, MEDICAID, SELFPAY | PROVIDERS: PCP Internal Medicine; Visit Provider Internal Medicine | DX: Z00.01 Encounter for general adult medical examination with abnormal findings (principal); E66.01 Morbid (severe) obesity due to excess calories; Z68.41 Body mass index [BMI] 40.0-44.9, adult; E11.9 Type 2 diabetes mellitus without complications; Z71.3 Dietary counseling and surveillance | CPT/HCPCS: 83036; 90471; 96127; 99212; 99396 ==

== ENCOUNTER 2024-09-11 09:56 | Outpatient (REF) | payer MEDICARE, MEDICAID, SELFPAY ==
[2024-09-11 12:28] LABS: Alanine Aminotransferase 42 U/L (0-40); Albumin Level 4.1 g/dL (3.5-5.0); Alkaline Phosphatase 68 U/L (39-117); Anion Gap 12 (12-20); Aspartate Amino Transferase 30 U/L (5-37); Bilirubin Total 0.5 mg/dL (0.0-1.0); Blood Urea Nitrogen 16 mg/dL (9-16); Calcium 9.1 mg/dL (8.4-10.2); Carbon Dioxide 26 mmol/L (22-29); Chloride 108 mmol/L (96-108); Cholesterol 205 mg/dL (<200); Estimated Glomerular Filt Rate > 60; Glucose Fasting 107 mg/dL (60-99); HDL Cholesterol 44 mg/dL (>40); LDL Cholesterol Calculated 120 mg/dL (<100); Potassium 4.4 mmol/L (3.3-5.1); Sodium 142 mmol/L (135-145); Total Protein 7.3 g/dL (6.5-8.0); Triglycerides 205 mg/dL (<150)
[2024-09-11 14:27] LABS: Creatinine Urine 174.91 mg/dL; Microalbum/Creatinine Ratio Ur 6.2 ug/mg cr (<30)
== END 2024-09-11 09:57 | disposition home or self-care (01) ==
LOC: HO.10HDL 09:56
PROVIDERS: Visit Provider Internal Medicine
DX: R80.9 Proteinuria, unspecified (principal); E11.9 Type 2 diabetes mellitus without complications; E78.5 Hyperlipidemia, unspecified
CPT/HCPCS: 36415; 80053; 80061; 82043; 82570

== ENCOUNTER 2024-09-13 09:42 | Outpatient (AMB) | payer MEDICARE, MEDICAID, SELFPAY ==
--- NOTE | 2024-09-13 09:48 | MHC.PC.OV ---
Vital Signs 09/13/24 09:50 Height 6 ft Weight 325 lb BMI 44.1 BP 148/70 H Blood Pressure Location Lt brachial Position Sitting Intake Visit Reasons: dm Intake Note: Patient here for a follow up DM Roughener Required: No Accompanied by: Self / Same As Patient Allergies aspirin Allergy (Verified 09/13/24 10:12) Unknown Medication List - Last Reconciled 09/13/24 by Nishi Gotti MD amlodipine 10 mg PO DAILY 90 days atorvastatin 40 mg PO BEDTIME 90 days blood sugar diagnostic (FreeStyle Lite Strips) Use 1 test strip once a day blood-glucose meter (FreeStyle Lite Meter kit) As directed diphenhydramine HCl (Allergy Relief (diphenhydramine)) 25 mg PO TID PRN 30 days duloxetine 30 mg PO DAILY 90 days esomeprazole magnesium 20 mg PO DAILY 90 days fexofenadine (Allergy Relief (fexofenadine)) 180 mg PO Q24H 90 days gabapentin 400 mg PO TID 30 days lancets (FreeStyle Lancets) use 1 lancet once a day lidocaine 5% (Lidoderm) 1 patch topical DAILY metformin ER 500 mg PO QAM 90 days metoprolol succinate ER 100 mg PO DAILY 90 days omeprazole 20 mg PO DAILY 90 days sucralfate 1 g PO TID Tobacco use date assessed: 09/13/24 Dental Screening Dental Screen Date: 09/13/24 Did you have a dental visit in the last 12 months?: No Did you have a dental problem in the last 6 months where you did not have access to dental care?: No Was dental information given to patient?: Patient has dentist HPI HPI Comments History of Present Illness Details The patient is a 53-year-old male presenting with concerns related to chronic management of type 2 diabetes mellitus, hyperlipidemia, hypertension, obesity, and neuropathic pain. The hemoglobin A1c has increased to 6.9% from a previous 6.4%, indicating a need for closer monitoring of glycemic control. There is a notable fluctuation in blood pressure managed consistently with amlodipine 10 mg. Hyperlipidemia management requires reassessment as LDL has reached 120 mg/dL due to inconsistent atorvastatin adherence. Current neuropathic pain management with gabapentin 400 mg three times a day is ineffective, eliciting adverse effects including increased sleepiness and appetite. The patient also reports significant weight gain and persistent hip and lower extremity pain, thus limiting physical activity and necessitating cane use. Depression is managed with duloxetine, while GERD is controlled with esomeprazole and omeprazole. The patient uses lidocaine patches for pain management and requires metformin for diabetes. [facility] Medical History (Updated 09/13/24 @ 10:39 by Nishi Gotti MD) Diabetes mellitus type 2 in obese Anxiety Depressed High cholesterol HTN (hypertension) Meniscus, lateral, derangement Left sided sciatica Gout Vitamin D deficiency Surgical History Duodenal ulcer Family History Mother Diabetes Father Diabetes Family/Other Mental health disorder Sister Colon cancer Social History Housing: Apartment Alcohol intake: never Patient Tobacco Use Status: Never used Tobacco e-Cigarette/Vaping Use: Never Used Second Hand Smoke Exposure: No service: No Current occupational status: disabled Cognitive needs: Yes Hearing needs: No Vision needs: Yes Questionnaire PHQ-9 Over the last 2 weeks, how often have you been bothered by any of the following problems? 1. Little interest or pleasure in doing things: not at all 2. Feeling down, depressed, or hopeless: not at all 3. Trouble falling or staying asleep, or sleeping too much: not at all 4. Feeling tired or having little energy: not at all 5. Poor appetite or overeating: not at all 6. Feeling bad about yourself - or that you are a failure or have let yourself or your family down: not at all 7. Trouble concentrating on things, such as reading the newspaper or watching television: not at all 8. Moving or speaking so slowly that other people could have noticed. Or the opposite - being so fidgety or restless that you have been moving around a lot more than usual: not at all 9. Thoughts that you would be better off or of hurting yourself in some way: not at all Total score: 0 Depression Screening Interpretation: Negative Depression Screening Done: Yes 18061 - PHQ-9 Billing: Yes Source: Developed by Drs. Jos Field, Keesha Green, Lincoln Maldonado and colleagues, with an educational ajay from [employer]. Thrive Questionnaire Date Thrive assessed: 09/13/24 I am a: Patient What is your living situation today?: I have a steady place to live Within the past 12 months, did the food you bought not last and you didn't have the money to get more?: Never true Within the past 12 months, did you worry whether your food would run out before you got money to buy more?: Never true Do you have trouble paying for medicines?: No Do you have trouble getting transportation to medical appointments?: No Do you have trouble paying your heating and electricity bill?: No Do you have trouble taking care of your child, family member or friend?: No Do you have trouble with day-to-day activities such as bathing, preparing meals, shopping, managing finances, etc.?: No Are you currently unemployed and looking for a job?: Yes Are you interested in more education?: Yes Please select the resources that you would like help with: None Currently or been in a relationship where the following occur: No concerns reported THRIVE Score: 0 AUDIT C Alcohol Use Questionnaire (AUDIT-C) 1. How often do you have a drink containing alcohol?: Never Total Score: 0 Score Reviewed/Action Taken: No VAN-7 AMB Questionnaire VAN-7 Date VAN - 7 assessed: 09/13/24 Feeling nervous, anxious, or on edge: 0 = Not at all Not being able to stop or control worryin = Not at all Worrying too much about different things: 0 = Not at all Trouble relaxin = Not at all Being so restless that it is hard to sit still: 0 = Not at all Becoming easily annoyed or irritable: 0 = Not at all Feeling afraid as if something awful might happen: 0 = Not at all Total VAN-7 score (0-4 normal; 5-9 mild; 10-14 moderate; 15-21 severe): 0 Source: Developed by Drs. Jos Field, Keesha Green, Lincoln Maldonado and colleagues, with an educational ajay from [employer]. VAN-7 Assessment Billing VAN-7 Assessment Tool: AVN-7 Assessment 66047 Review of Systems Const All systems reviewed & are unremarkable except as noted in HPI and below Card Denies chest pain at rest, Denies chest pain with activity, Denies edema, Denies irregular heart rhythm, Denies claudication, Denies dyspnea, Denies dyspnea on exertion, Denies orthopnea, Denies paroxysmal nocturnal dyspnea and Denies slow heart rate Resp Denies cough, Denies dyspnea and Denies dyspnea on exertion GI Denies abdominal pain, Denies change in bowel habits, Denies excessive flatus, Denies nausea and Denies vomiting Physical exam (Primary Care) Vital Signs: Last Vital Signs BP 148/70 H 09/13/24 09:50 BMI result Body Mass Index 44.1 BMI Assessment/Plan discussion: High BMI High, discussed plan: lifestyle, weight reduction, dietary and physical activity Tobacco/Smoking Status: Tobacco use Status Tobacco use date assessed 09/13/24 09/13/24 09:58 Patient Tobacco Use Status Never used Tobacco 09/13/24 09:56 e-Cigarette/Vaping Use Never Used 09/13/24 09:56 PHQ-9: PHQ-9 Score PHQ-9: Total score 0 09/13/24 10:13 Depression Screening Interpretation: Negative Thrive Assessment: Date of Thrive Assessment Date Thrive assessed 09/13/24 09/13/24 09:56 Currently or been in a relationship where the following occur: No concerns reported Const Limitations: ambulation with cane Resp Effort & Inspection: normal respiratory effort Auscultation: clear to auscultation bilaterally Cardio Jugular venous distension: no JVD Rate: regular rate Rhythm: regular rhythm Heart sounds: S1 normal heart sound present and S2 normal heart sound present Extrem General: Yes full ROM Results AMB Hemoglobin A1c AMB Hemoglobin A1c 6.9 % Last Edit by SKYLAR Whyte on 09/13/24 10:01 Results Reviewed Results Reviewed: Laboratory Last Values Hgb A1c (Clinic) 6.9 % (4.0-6.0) H 09/13/24 09:47 Coding Level of Care Code Est Pt Level 4 (63270) Complex EM visit Add On G2211 Diagnoses Type 2 diabetes mellitus without complication, without long-term current use of insulin E11.9 Diabetes mellitus retirement insulin use: without intermediate card tender use Diabetes mellitus complication status: without complication GERD (gastroesophageal reflux disease) K21.9 Hyperlipidemia LDL goal <70 E78.5 Mild major depression F32.0 Essential hypertension I10 Morbid obesity with BMI of 40.0-44.9, adult E66.01; Z68.41 Additional Codes VAN-7 Assessment Billing - VAN-7 Assessment Tool: VAN-7 Assessment 17438 ([id number]) PHQ-9 - 44926 - PHQ-9 Billing: Yes ([id number]) Time Spent (min) 25 Assessment & Plan Assessment & Plan (1) Type 2 diabetes mellitus: Code(s): E11.9 - Type 2 diabetes mellitus without complications Category: Medical Qualifiers: Diabetes mellitus retirement insulin use: without retirement use Diabetes mellitus complication status: without complication Qualified Code(s): E11.9 - Type 2 diabetes mellitus without complications (2) GERD (gastroesophageal reflux disease): Code(s): K21.9 - Gastro-esophageal reflux disease without esophagitis Category: Medical (3) Hyperlipidemia LDL goal <70: Code(s): E78.5 - Hyperlipidemia, unspecified Category: Medical (4) Mild major depression: Code(s): F32.0 - Major depressive disorder, single episode, mild Category: Medical (5) Essential hypertension: Code(s): I10 - Essential (primary) hypertension Category: Medical (6) Morbid obesity with BMI of 40.0-44.9, adult: Code(s): E66.01 - Morbid (severe) obesity due to excess calories; Z68.41 - Body mass index [BMI] 40.0-44.9, adult Category: Medical Plan I will continue the management of the patient's type 2 diabetes with metformin, and monitor the hemoglobin A1c given its upward trend. To address hyperlipidemia, atorvastatin dosage will be increased to 80 mg daily. Management of neuropathic pain will involve tapering off gabapentin and initiating pregabalin, alongside monitoring for any mood changes as it is a controlled medication. Continued GERD management with current medications is planned, and ongoing monitoring of blood pressure and cholesterol levels will be set in place. I will address any ongoing concerns with follow-ups as needed. Patient was informed and verbally consented to the use of an ambient scribe for clinic note documentation during this visit. I discussed with the patient the necessity of increasing atorvastatin dosage and the rationale for transitioning from gabapentin to pregabalin due to inefficacy and side effects. I emphasized the need for adherence to medication for effective management of his chronic conditions. We reviewed potential side effects and the controlled substance status of pregabalin, considering its benefits for neuropathic pain. I explained the importance of weight management, discussing non-surgical options given his apprehension about bariatric surgery. We discussed the continuation of current GERD medications and adjustments to diabetic medications if necessary. Orders: Orders Lipid Panel 4 Months E78.5 - Hyperlipidemia, unspecified Microalbumin, Random (w Creat) 4 Months R80.9 - Proteinuria, unspecified Comprehensive [place]. Panel Fast 4 Months E66.01 - Morbid (severe) obesity due to excess calories, Z68.41 - Body mass index [BMI] 40.0-44.9, adult AMB Hemoglobin A1c Today E11.9 - Type 2 diabetes mellitus without complications Referrals Rheumatology Referral M25.50 - Pain in unspecified joint Medical Weight Management Referral E66.01 - Morbid (severe) obesity due to excess calories, Z68.41 - Body mass index [BMI] 40.0-44.9, adult Medications: New gabapentin 300 mg PO BID 60 caps 0RF 30 days atorvastatin 80 mg PO BEDTIME 90 tabs 1RF 90 days pregabalin 25 mg PO BEDTIME 30 caps 0RF 30 days G62.9 - Polyneuropathy, unspecified Refilled lidocaine 5% (Lidoderm) leave on most painful area for up to 12 hrs 1 patch topical DAILY 30 ea 5RF Discontinued atorvastatin Discontinued Reason: Patient Completed Course 40 mg PO BEDTIME 90 days 90 tabs 1RF gabapentin Discontinued Reason: Patient Completed Course 400 mg PO TID 30 days 90 caps 1RF Patient Instructions: - Continue taking metformin 500 mg daily. - Increase atorvastatin to 80 mg daily as instructed. - Taper off gabapentin as directed and start pregabalin when advised. - Maintain gastrointestinal reflux management with current medications. - Monitor blood sugar and cholesterol levels regularly. - Adhere to a balanced diet and consider increasing physical activity. - Return for a follow-up visit in four months for lab review. - Report any adverse reactions or concerns regarding new medication changes promptly. - Attend scheduled checkups to monitor blood pressure and other vital signs.
[2024-09-13 09:50] VITALS: BP 148/70; BMI 44.1
--- OUTSIDE RECORDS SUMMARY | 2024-09-13 10:53 | XMS_ITS | Encounter Summary ---
Author Organization [facility] Address [address] [place] [address] Care Team Providers Care Industrial Gas Fitter Helper Name Role Phone Dannie Morales Primary Care Provider [phone] Encounter Details Date Type Department Care Team (Late st Contact Info) Description 09/02/2022 / TELEPHONE [facility] [address] [place] [id number] Lacie Mart [address] [place] [address] Major depressive disorder, single episode, severe (HCC-CMS) (Primary Dx); Low income; Insufficient social insurance or welfare support Social History Tobacco Use Types Packs/Day Years Used Date Smoking Tobacco: Never Smokeless Tobacco: Never Alcohol Use Standard Drinks/Week Comments No 0 (1 standard drink = 0.6 oz pur e alcohol) Social Connections Answer Date Recorded Social Connections and Isolation 0 02/19/2019 Financial Resource Strain Answer Date R ecorded Financial Resource Strain 0 2018 Stress Answer Date Recorded Stress 0 02/19/2019 Physical Activity Answer Date Recorded Physical Activity 0 02/19/2019 Food Insecurity Answer Date Recorded Food 0 02/19/2019 Transportation Needs Answer Date Record ed Transportation 0 02/19/2019 Housing Stability Answer Date Recorded Housing 0 02/19/2019 Safety and Environment Answer Date Maycol rded Safety 0 02/19/2019 Utilities Answer Date Recorded Utilities 0 02/19/2019 Employment Answer Date Recorded Employment 0 02/19/2019 Sex and Gender Information Value Date Recorded Sex Assigned at Male 08/12/2017 11:24 AM PST Legal Sex Male 10:27 AM PDT Gender Identity Male 08/12/2017 11:24 AM PST Sexual Orientation Straight 08/12/2017 11 :24 AM PST Occupation Industry Job Start Date Job End Date on SSI Not on file Not on file Not on file documented as of this encounter Plan of Treatment Not on file documented as of this encounter Visit Diagnoses Diagnosis Major depressive disorder, single episode, severe ([facility] Primary Major depressive disorder, single episode, severe, without mention of psychotic behavior Low income Inadequate material resources Insufficient social insurance or welfare support Other specified housing or economic circumstances documented in this encounter Additional Health Concerns Assessment Noted Time PHQ-9 Depression Total Score: 1 07/10/19 23 4:18 PM PST documented as of this encounter Care Teams Industrial Gas Fitter Helper Relationship Specialty Start Date End Date Dannie Morales FNP [address] [place] [address] PCP - General Family Medicine, ADMISSIONS ASSISTANT 06/29/23 documented as of this encounter
--- OUTSIDE RECORDS SUMMARY | 2024-09-13 10:53 | XMS_ITS | Clinical Summary ---
Author Organization [facility] Address [address] [place] [address] Care Team Providers Care Unit Secretary Name Role Phone Dannie Morales Primary Care Provider [phone] Source Comments PLEASE NOTE, if this patient is a minor, it may be UNLAWFUL to discuss sensitive information that is contained in these records (such as FAMILY PLANNING, MENTAL HEALTH or SUBSTANCE ABUSE) with the minor patient's parent or other person without the patient's specific authorization.[facility] Allergies Active Allergy Reactions Criticality Noted Date Comments Aspirin Nausea and Vomiting High 05/03/2014 Oxycodone-Acetaminophen 03/10/2021 Medications compression stocking I86.8 Varicose Veins: Size XL, Compression level 20-30 mmHg. 2 Each 4 12/08/19 17 Active miscellaneous medical supply miscIndications:Chr onic left-sided low back pain with left-sided sciatica by miscellaneous route once daily Dispense 1 cane for ambulation. Lifetime use. Dx: M54.42, G89.29] 1 Each 01/16/20 21 Active gabapentin (NEURONTIN) 800 mg tabletIndications:A cute pain of right foot Take 1 Tablet by mouth 3 (three) times daily 90 Tablet 2 02/12/20 22 Active methocarbamoL (ROBAXIN) 750 mg tabletIndications:A cute pain of both knees Take 1 Tablet by mouth 4 (four) times daily 90 Tablet 3 04/16/20 22 Active diclofenac sodium (VOLTAREN) 1 % gelIndications:Arth ralgia, unspecified joint Apply topically 2 (two) times daily 100 g 2 05/11/20 22 Active fexofenadine (ZAKIA) 180 mg tabletIndications:s easonal allergic rhinitis Take 1 Tablet by mouth once daily Indications: seasonal runny nose 90 Tablet 1 05/11/20 22 Active fluticasone propionate (FLONASE) 50 mcg/actuation nasal sprayIndications:Se asonal allergies Place 1 [place] in both nostrils once daily 16 g 2 05/11/20 22 Active lidocaine (LIDODERM) 5 % patchIndications:Ch ronic left-sided low back pain with bilateral sciatica Place 1 Patch onto the skin once daily (every 24 hours) 30 Patch 2 05/11/20 22 Active metFORMIN XR (GLUCOPHAGE-XR) 500 mg 24 hr tabletIndications:T ype 2 diabetes mellitus without complication, without long-term current use of insulin ([facility]) Take 1 Tablet by mouth once daily with breakfast TAKE 1 TABLET BY MOUTH EVERY DAY WITH BREAKFAST FOR DIABETES 90 Tablet 1 05/11/20 22 Active allopurinoL (ZYLOPRIM) 300 mg tabletIndications:C hronic gout without tophus, unspecified cause, unspecified site Take 1 Tablet by mouth once daily 90 Tablet 1 05/11/20 22 Active DULoxetine (CYMBALTA) [address] capsule Take 1 Capsule by mouth once daily 30 Capsule 2 05/18/20 22 Active acetaminophen (TYLENOL) 500 mg tabletIndications:A cute pain of both knees Take 2 Tablets by mouth 3 (three) times daily as needed for pain 90 Tablet 2 06/24/20 22 Active rOPINIRole (REQUIP) 1 mg tabletIndications:R estless leg syndrome Take 1 Tablet by mouth nightly at bedtime 90 Tablet 1 07/10/19 23 Active omeprazole (PRILOSEC) [address] capsuleIndications: Chronic gastroesophageal reflux disease Take 1 Capsule by mouth every morning before breakfast 90 Capsule 1 07/10/19 23 Active atorvastatin (LIPITOR) 20 mg tabletIndications:M ixed hyperlipidemia Take 1 Tablet by mouth once daily TAKE 1 TABLET BY MOUTH EVERY DAY FOR HIGH CHOLESTEROL 90 Tablet 1 07/10/19 23 Active amLODIPine (NORVASC) 10 mg tabletIndications:E ssential hypertension Take 1 Tablet by mouth once daily 90 Tablet 1 07/10/19 23 Active metoprolol succinate XL (TOPROL-XL) 100 mg 24 hr tabletIndications:E ssential hypertension Take 1 Tablet by mouth once daily 90 Tablet 1 07/10/19 23 Active Active Problems Problem Noted Date Diagnosed Date Chronic gout of right ankle 07/10/2022 Overview (07/10/2022): Jun 2022: controlled on allopurinol History of duodenal ulcer 07/10/2022 Class 3 severe obesity due t o excess calories with serious comorbidity and body mass index (BMI) of 45.0 to 49.9 in adult ([facility]) 06/30/2021 Chronic foot pain, right 05/16/2021 Overview (05/16/2021): Report: CR Calcaneus Heel RT [facility] 05/09/2021 HISTORY: The patient is a 50-year-old male with chronic right heel pain, nontraumatic. FINDINGS: AP and lateral radiographs of the right calcaneus are obtained. The study demonstrates no fracture, dislocation, arthritic change, or other bony abnormality. No soft tissue abnormality is seen. IMPRESSION: Normal examination. Report: CR Calcaneus Heel RT Date: 05/09/2021 [facility] HISTORY: The patient is a 50-year-old male with chronic right heel pain, nontraumatic. FINDINGS: AP and lateral radiographs of the right calcaneus are obtained. The study demonstrates no fracture, dislocation, arthritic change, or other bony abnormality. No soft tissue abnormality is seen. IMPRESSION: Normal examination. Prediabetes 12/13/2020 Morbid obesity ([facility]) 11/28/2020 Restless leg syndrome 11/28/2020 Mixed hyperlipidemia 11/28/2020 Major depressive disorder, single episode, sever e ([facility]) 02/29/2020 Panic attacks 02/29/2020 MARCELINO (obstructive sleep apnea) 12/04/2019 Overview (07/10/2022): Jun 2022: reports compliance with CPAP Severe depression ([facility]) 07/13/2019 Chronic left-sided low back pain with left-sided sciatica 04/16/2016 Overview (07/27/2016): [facility]-07/01/2016- Discussed trial of joint injections. Tendinitis of right rotator cuff 10/15/2014 Overview (03/23/2015): With impingement. Injection therapy NEOS GERD (gastroesophageal reflux disease) 5 Hypertriglyceridemia 06/06/2014 HTN (hypertension) 05/03/2014 Resolved Problems Problem Noted Date Diagnosed Date Resolved Date Morbid obesity with BMI of 4 0.0-44.9, adult ([facility]) 05/15/2015 07/10/2022 Immunizations Name Administration Dates Next Due Flu, Adjuvant, 65y+ (Fluad) 06/14/2020 Flu, Preservative Free 07/10/2022,06/14/2020 INFLUENZA, SEASONAL, INJECTABLE 05/30/2021 MODERNA COVID-19 VACCINE BIVALENT, BLUE CAP, 6M+ 07/10/2022 Moderna COVID-19 Vaccine, re d cap blue label, 12+ Primary Series 09/27/2020,08/30/2020 PNEUMOCOCCAL POLYSACCHARIDE PPV23 06/14/2020 TDAP 12/07/2016 ZOSTER VACCINE, RECOMBINANT (SHINGRIX) 3,11/28/2020 Family History Medical History Relation Name Comments Cancer Father prostate Heart Problems Father Kidney disease Mother Cancer Sister uterine? Relation Name Status Comments Father Alive Mother Alive Sister Social History Tobacco Use Types Packs/Day Years Used Date Smoking Tobacco: Never Smokeless Tobacco: Never Tobacco Cessation:Counseling Given: Not Answered Alcohol Use Standard Drinks/Week Comments No 0 (1 standard drink = 0.6 oz pur e alcohol) Social Connections Answer Date Recorded Connectedness 0 03/16/2024 Financial Resource Strain Answer Date R ecorded Financial Resource Strain 0 2018 Stress Answer Date Recorded Stress 0 02/19/2019 Physical Activity Answer Date Recorded Physical Activity 0 02/19/2019 Food Insecurity Answer Date Recorded Food 0 03/23/2024 Transportation Needs Answer Date Record ed Transportation 0 02/19/2019 Housing Stability Answer Date Recorded Housing 0 02/19/2019 Safety and Environment Answer Date Maycol rded Safety 0 02/19/2019 Utilities Answer Date Recorded Utilities 0 02/19/2019 Employment Answer Date Recorded Stress 0 03/16/2024 Sex and Gender Information Value Date Recorded Sex Assigned at Male 08/12/2017 11:24 AM PST Legal Sex Male 10:27 AM PDT Gender Identity Male 08/12/2017 11:24 AM PST Sexual Orientation Straight 08/12/2017 11 :24 AM PST Occupation Industry Job Start Date Job End Date on SSI Not on file Not on file Not on file Last Filed Vital Signs Vital Sign Reading Time Taken Comments Blood Pressure 120/68 07/10/2022 3:28 PM EST Pulse 99 07/10/2022 3:28 PM EST Temperature 36.9 ??C (98.5 ??F) 07/10/2022 3:28 PM ES T Respiratory Rate 16 07/10/2022 3:28 PM EST Oxygen Saturation 93% 07/10/2022 3:28 PM EST Inhaled Oxygen Concentration - - Weight 142.5 kg (314 lb 1.6 oz) 07/10/2022 3:28 PM EST Height 172.7 cm (5' 8 ) 07/10/2022 3:28 PM EST Body Mass Index 47.76 07/10/2022 3:28 PM EST Plan of Treatment Health Maintenance Due Date Last Done Comments Dental Examination 1970 Tobacco Screening 1970 Imm-Hepatitis B (1 of 3 - 19 + 3-dose series) 1989 CT Colonography 10/31/2015 FIT/gFOBT 10/31/2015 Fecal DNA 10/31/2015 Flexible Sigmoidoscopy 10/31/2015 Lipid Screening 12/06/2021 12/06/2020, 10/27, 11/14/2018, Additional history exists Diabetes Screening 09/12/2022 09/12/2021, 0 09/12/2021, 03/10/2021, Additional history exists Depression Monitoring 10/08/2022 07/10/2022 , 04/16/2022, 09/10/2021, Additional history exists Annual Preventive Care Visit 07/10/2023, 12/07/2016, 05/15/2015 [id number] ( season) 2024 07/10/2022, 12/09/2021, 05/30/2021, Additional history exists Imm-Influenza (#1) 2024 07/10/2022, 1 07/31/2020, 06/14/2020, Additional history exists Alcohol and Drug Screen 06/28/2024 07/10/19 23, 09/10/2021, 08/27/2020, Additional history exists Colonoscopy 07/24/2026 07/24/2016, 07/24/2016 Colorectal Cancer Screening 07/24/2026 Imm-DTaP/Tdap/Td (2 - Td or Tdap) 12/07/2026 017 Hepatitis C Screening Completed 05/03/2014 HIV Screening Completed 01/23/2019 Imm-Zoster, Recombinant Completed 07/10/2022, 11/28 Procedures Procedure Name Priority Date/Time Associated Diagnosis Comments BASIC METABOLIC PANEL CALCIUM TOTAL Routine 09/12/2021 10:04 AM EDT Type 2 diabetes mellitus without complication, without long-term current use of insulin (HCC-CMS) LIPID PANEL Routine 12/06/2020 9:28 AM EDT Morbid obesity (HCC-CMS) ANTIBODY HIV-1&HIV-2 SINGLE RESULT Routine 01/23/2019 3:51 PM EDT Encounter for screening for HIV HISTORIC COLONOSCOPY 07/24/2016 3:00 AM EST HEPATITIS A,B,C PANEL Routine 05/03/2014 8:06 PM EST HTN (hypertension) from Last 3 Months or Most Recently Relevant to Health Maintenance Results * (ABNORMAL) BASIC METABOLIC PANEL CALCIUM TOTAL (09/12/2021 10:04 AM EDT) GLUCOSE 170(H) 65 - 139 mg/dL [facility] Comment: ?Non-fasting reference interval UREA NITROGEN (BUN) 13 7 - 25 mg/dL [facility] CREATININE (blood) 0.89 0.70 - 1.33 mg/dL [employer] Comment: For patients >49 years of age, the reference limit for Creatinine is approximately 13% higher for people identified as -Nepalese. GFR ESTIMATED 100 > OR = 60 mL/min/1 .73m2 [employer] EGFR 116 > OR = 60 mL/min/1 .73m2 [employer] BUN/CREATININE RATIO NOT APPLICABLE 6 - 22 [employer] SODIUM 138 135 - 146 mmol/L [employer] POTASSIUM 4.4 3.5 - 5.3 mmol/L [facility] CHLORIDE 105 98 - 110 mmol/L [facility] CARBON DIOXIDE 25 20 - 32 mmol/L [facility] CALCIUM 9.1 8.6 - 10.3 mg/dL [facility] Blood Blood / Unknown 09/12/2021 1 0:04 AM EDT 09/12/2021 10:05 AM EDT Narrative [facility] - 09/15/2021 12:25 PM EDT FASTING:NO Anna Marie Kenny PA-C LAB - BLOOD DRAW Edited Result - Final [facility] [address] [address], [facility] [address] [address] * (ABNORMAL) LIPID PANEL (12/06/2020 9:28 AM EDT) CHOLESTEROL, TOTAL 158 <200 mg/dL [facility] HDL CHOLESTEROL 41 > OR = 40 mg/dL [facility] TRIGLYCERIDES 216(H) <150 mg/dL [facility] Comment: If a non-fasting specimen was collected, consider repeat triglyceride testing on a fasting specimen if clinically indicated. Carmen et al. J. of Clin. Lipidol. 2015;9:129-169. LDL-CHOLESTEROL 86 99 mg/dL (calc) [facility] Comment: Reference range: <100 Desirable range <100 mg/dL for primary prevention; ?? <70 mg/dL for patients with CHD or diabetic patients with > or = 2 CHD risk factors. LDL-C is now calculated using the Kartik-Dariela calculation, which is a validated novel method providing better accuracy than the Friedewald equation in the estimation of LDL-C. Kartik SS et al. SALLY. 2013;310(19): 4913-1976 (http://education.[employer]/faq/TJS369) CHOL/HDLC RATIO 3.9 <5.0 (calc) [facility] NON-HDL CHOLESTEROL 117 <130 mg/dL (calc) [facility] Comment: For patients with diabetes plus 1 major ASCVD risk factor, treating to a non-HDL-C goal of <100 mg/dL (LDL-C of <70 mg/dL) is considered a therapeutic option. Blood Blood / Unknown 12/06/2020 9 :28 AM EDT 12/06/2020 9:29 AM EDT us Anna Marie Kenny PA-C LAB - BLOOD DRAW Edited Result - Final [facility] [address] [address], [facility] [address] [address] * HIV-1 & HIV-2 ANTIBODIES (01/23/2019 3:51 PM EDT) [facility] HIV 1 AND 2 ANTIBODY SCREEN NEGATIVE NEGATIVE [facility] Comment: This assay is a 4th generation assay allowing for earlier detection of HIV infection by detecting the presence of the HIV-1 p24 antigen as well as the traditional antibodies to HIV type 1 (including group O) and type 2. ??Use of a 4th generation assay is the current CDC recommendation for HIV screening. Blood specimen (specimen) Blood / Unknown 01/23/2019 3:51 PM EDT 01/23/2019 3:55 PM EDT Narrative [facility] - 01/23/2019 8:04 PM EDT [employer], a member of [address] [address] [employer] - Tracey Clark MD PT ID [id number] ORD# [id number] Naresh Mendez NP LAB - BLOOD DRAW Final Result Performing Organization Address City/[facility]/ZIP Co de Phone Number [address] [address], * HISTORIC COLONOSCOPY (07/24/2016 3:00 AM EST) 07/24/2016 3:00 AM EST us Anna Marie Kenny PA-C PROCEDURES Final Result * HEPATITIS A,B,C PANEL (05/03/2014 8:06 PM EST) HEPATITIS B SURFACE ANTIBODY NEGATIVE NEGATIVE [facility] HEPATITIS B SURFACE ANTIGEN NEGATIVE NEGATIVE [facility] HEPATITIS C VIRUS ANTIBODY NEGATIVE NEGATIVE [facility] HEPATITIS B CORE ANTIBODY NEGATIVE NEGATIVE [facility] HEPATITIS A ANTIBODY TOTAL NEGATIVE NEGATIVE [facility] Blood specimen (specimen) Blood / Unknown 05/03/2014 8:06 PM EST 05/04/2014 12:52 AM EST Narrative [facility] - 05/04/2014 1:04 PM EST [facility] [address] [place] [address] PT ID [id number] ORD# [id number] Rissa Petersen DNP LAB - BLOOD DRAW Edited Res ult - Final [facility] [address] [place] [address], from Last 3 Months or Most Recently Relevant to Health Maintenance Insurance [place] MEDICAID DENTAL [facility] [employer] NET D[facility]AL [employer] [facility] Care Teams Unit Secretary Relationship Specialty Start Date End Date Dannie Morales FNP [address] [place] [address] PCP - General Family Medicine, SANITATION LABORER 06/29/23
--- OUTSIDE RECORDS SUMMARY | 2024-09-13 10:53 | XMS_ITS | Clinical Summary ---
Author Organization [facility] it Address [address] [place] [address] Care Team Providers Care Livestock Showman Name Role Phone Unavailable Primary Care Provider Unavailabl e Social History Tobacco Use Types Packs/Day Years Used Date Smoking Tobacco: Never Assessed Sex and Gender Information Value Date Recorded Sex Assigned at Not on file Legal Sex Male 4:41 PM EST Gender Identity Not on file Sexual Orientation Not on file Plan of Treatment Health Maintenance Due Date Last Done Comments DTaP,Tdap,and Td Vaccines (1 - Tdap) 1989 Hepatitis B Vaccines (1 of 3 - 19+ 3-dose series) 1989 Pneumococcal Vaccine: 50+ Ye ars (1 of 1 - PCV) 2020 Zoster Vaccines (1 of 2) 2020 Cholesterol Screening (Lipid Panel) 05/27/2022 Colorectal Cancer Screening: Colonoscopy 05/27/2022 Depression Screening 05/27/2022 HIV Screening 05/27/2022 Hepatitis C Screening 05/27/2022 Social Influencers of Health Screening 05/27/2022 COVID-19 Vaccine ( - 2023-2 5 season) 2024 Influenza Vaccine (#1) 2024 HIB Vaccines Aged Out No longer eligi ble based on patient's age to complete this topic HPV Vaccines Aged Out No longer eligi ble based on patient's age to complete this topic Hepatitis A Vaccines Aged Out No long er eligible based on patient's age to complete this topic IPV Vaccines Aged Out No longer eligi ble based on patient's age to complete this topic MMR Vaccines Aged Out No longer eligi ble based on patient's age to complete this topic Meningococcal ACWY Vaccine Aged Out N o longer eligible based on patient's age to complete this topic Meningococcal B Vacine Aged Out No lo nger eligible based on patient's age to complete this topic Pneumococcal Vaccine: Pediat rics (0 to 5 Years) and At-Risk Patients (6 to 64 Years) Aged Out No longer eligible b ased on patient's age to complete this topic RSV Immunization Patients Un gregory 20 months Aged Out No longer eligible b ased on patient's age to complete this topic Varicella Vaccines Aged Out No longer eligible based on patient's age to complete this topic
== END 2024-09-13 10:38 | disposition home or self-care (01) ==
LOC: HO.HMCH 09:43
PROVIDERS: PCP Internal Medicine; Visit Provider Internal Medicine
DX: E11.9 Type 2 diabetes mellitus without complications (principal); F32.0 Major depressive disorder, single episode, mild; E66.01 Morbid (severe) obesity due to excess calories; Z68.41 Body mass index [BMI] 40.0-44.9, adult; K21.9 Gastro-esophageal reflux disease without esophagitis; E78.5 Hyperlipidemia, unspecified; I10 Essential (primary) hypertension

== ENCOUNTER → 2024-09-13 09:42 | Outpatient (BNVA) | payer MEDICARE, MEDICAID, SELFPAY | PROVIDERS: PCP Internal Medicine; Visit Provider Internal Medicine | DX: E11.9 Type 2 diabetes mellitus without complications (principal); K21.9 Gastro-esophageal reflux disease without esophagitis; E78.5 Hyperlipidemia, unspecified; F32.0 Major depressive disorder, single episode, mild; I10 Essential (primary) hypertension; E66.01 Morbid (severe) obesity due to excess calories; Z68.41 Body mass index [BMI] 40.0-44.9, adult; Z71.3 Dietary counseling and surveillance | CPT/HCPCS: 83036; 96127; 99212 ==

== ENCOUNTER → 2024-10-25 10:45 | Outpatient (BNVA) | payer MEDICARE, MEDICAID, SELFPAY | PROVIDERS: PCP Internal Medicine; Visit Provider Physician Assistant Surgical | DX: Z13.89 Encounter for screening for other disorder (principal) ==

== ENCOUNTER 2024-11-13 08:21 | Outpatient (AMB) | payer MEDICARE, MEDICAID, SELFPAY ==
--- OUTSIDE RECORDS SUMMARY | 2024-11-13 08:27 | XMS_ITS | Clinical Summary ---
Author Organization [facility] Address [address] [place] [address] Care Team Providers Care Mail Room Name Role Phone Dannie Morales [employer] Primary Care Prov ider Source Comments PLEASE NOTE, if this patient [...] mcg/actuation nasal sprayIndications:Se asonal allergies Place 1 [place] in both nostrils once daily 16 g 2 05/11/20 22 Active lidocaine (LIDODERM) 5 % patchIndications:Ch ronic left-sided low back pain with bilateral sciatica Place 1 Patch onto the skin once daily (every 24 hours) 30 Patch 2 05/11/20 22 Active metFORMIN XR (GLUCOPHAGE-XR) 500 mg 24 hr tabletIndications:T ype 2 diabetes mellitus without complication, without long-term current use of insulin ([facility]) Take 1 Tablet by mouth once daily [...] (BMI) of 45.0 to 49.9 in adult 06/30/2021 Chronic foot pain, right 05/16/2021 Overview (05/16/2021): Report: CR Calcaneus Heel RT [facility] [place]/09/2021 HISTORY: The patient is a 50-year-old male with chronic right heel pain, nontraumatic. FINDINGS: AP and lateral radiographs of the right calcaneus are obtained. The study demonstrates no fracture, dislocation, arthritic change, or other bony abnormality. No soft tissue abnormality is seen. IMPRESSION: Normal examination. Report: CR Calcaneus Heel RT Date: 05/09/2021 [facility] HISTORY: The patient is a 50-year-old male with chronic right heel pain, nontraumatic. FINDINGS: AP and lateral radiographs of the right calcaneus are obtained. The study demonstrates no fracture, dislocation, arthritic change, or other bony abnormality. No soft tissue abnormality is seen. IMPRESSION: Normal examination. Prediabetes 12/13/2020 Morbid obesity ([facility]) 11/28/2020 Restless leg syndrome 11/28/2020 Mixed hyperlipidemia 11/28/2020 Major depressive disorder, single episode, sever e ([facility]) 02/29/2020 Panic attacks 02/29/2020 MARCELINO (obstructive sleep apnea) 12/04/2019 Overview (07/10/2022): Jun 2022: reports compliance with CPAP Severe depression ([facility]) 07/13/2019 Chronic left-sided low back pain with left-sided sciatica 04/16/2016 Overview (07/27/2016): [facility]-07/01/2016- Discussed trial of joint injections. Tendinitis of right rotator cuff 10/15/2014 Overview (03/23/2015): With impingement. Injection therapy NEOS GERD (gastroesophageal reflux disease) 5 Hypertriglyceridemia 06/06/2014 HTN (hypertension) 05/03/2014 Resolved Problems Problem Noted Date Diagnosed Date Resolved Date Morbid obesity with BMI of 4 0.0-44.9, adult ([facility]) 05/15/2015 07/10/2022 Immunizations Immunization Administration Dates Next Due Flu, Adjuvant, 65y+ (Fluad) 06/14/2020 Flu, Preservative Free 07/10/2022,06/14/2020 INFLUENZA, SEASONAL, INJECTABLE 05/30/2021 MODERNA COVID-19 VACCINE BIVALENT, BLUE CAP, 6M+ 07/10/2022 Moderna COVID-19 Vaccine, re d cap blue label, 12+ Primary Series 09/27/2020,08/30/2020 PNEUMOCOCCAL POLYSACCHARIDE PPV23 (Pneumovax 23) 06/14/2020 TDAP 12/07/2016 ZOSTER VACCINE, RECOMBINANT (SHINGRIX) [...] 12/06/2021 12/06/2020, 10/27, 11/14/2018, Additional history exists Anxiety Screening 01/20/2022 01/20/2021 Diabetes Screening 09/12/2022 09/12/2021, 0 09/12/2021, 03/10/2021, Additional history exists Depression Monitoring 10/08/2022 07/10/2022 , 04/16/2022, 09/10/2021, Additional history exists Annual Wellness (Adult): Ind icated (All Coverage) 07/10/2023 07/10/2022, 12/07/2016, 05/15/2015 [id number] ( season) 2024 07/10/2022, 12/09/2021, 05/30/2021, Additional [...] EDT) GLUCOSE 170(H) 65 - 139 mg/dL [facility] Comment: ?Non-fasting reference interval UREA NITROGEN (BUN) 13 7 - 25 mg/dL [facility] CREATININE (blood) 0.89 0.70 - 1.33 mg/dL [facility] Comment: For patients >49 years of age, the reference limit for Creatinine is approximately 13% higher for people identified as -Brazilian. GFR ESTIMATED 100 > OR = 60 mL/min/1 .73m2 [facility] EGFR 116 > OR = 60 mL/min/1 .73m2 [facility] BUN/CREATININE RATIO NOT APPLICABLE 6 - 22 [facility] SODIUM 138 135 - 146 mmol/L [facility] POTASSIUM 4.4 3.5 - 5.3 mmol/L [facility] CHLORIDE 105 98 - 110 mmol/L [facility] CARBON DIOXIDE 25 20 - 32 mmol/L [facility] CALCIUM 9.1 8.6 - 10.3 mg/dL [facility] Blood Blood / Unknown 09/12/2021 1 0:04 AM EDT 09/12/2021 10:05 AM EDT Narrative [facility] - 09/15/2021 12:25 PM EDT FASTING:NO us Anna Marie Kenny PA-C LAB - BLOOD DRAW Edited Result - Final [facility] [address] [address], [facility] [address] [address] * (ABNORMAL) LIPID PANEL (12/06/2020 9:28 AM EDT) CHOLESTEROL, TOTAL 158 <200 mg/dL [facility] HDL CHOLESTEROL 41 > OR = 40 mg/dL [facility] TRIGLYCERIDES 216(H) <150 mg/dL [facility] Comment: If a non-fasting specimen was collected, consider repeat triglyceride testing on a fasting specimen if clinically indicated. Carmen et al. J. of Clin. Lipidol. 2015;9:129-169. LDL-CHOLESTEROL 86 99 mg/dL (calc) [facility] Comment: Reference range: <100 Desirable range <100 mg/dL for primary prevention; ?? <70 mg/dL for patients with CHD or diabetic patients with > or = 2 CHD risk factors. LDL-C is now calculated using the April calculation, which is a validated novel method providing better accuracy than the Friedewald equation in the estimation of LDL-C. Kartik GALVAN et al. SALLY. 2013;310(19): 3887-8295 (http://education.[employer]/faq/BMW379) CHOL/HDLC RATIO 3.9 <5.0 (calc) [facility] NON-HDL CHOLESTEROL 117 <130 mg/dL (calc) [facility] Comment: For patients with diabetes plus 1 major ASCVD risk factor, treating to a non-HDL-C goal of <100 mg/dL (LDL-C of <70 mg/dL) is considered a therapeutic option. Blood Blood / Unknown 12/06/2020 9 :28 AM EDT 12/06/2020 9:29 AM EDT Anna Marie Kenny PA-C LAB - BLOOD DRAW Edited Result - Final [facility] [address] [address], [facility] [address] [address] * HIV-1 & HIV-2 ANTIBODIES (01/23/2019 3:51 PM EDT) [facility] HIV 1 AND 2 ANTIBODY SCREEN NEGATIVE NEGATIVE [address] [employer] [facility] Comment: This assay is a [...] PM EDT 01/23/2019 3:55 PM EDT Narrative [facility] - 01/23/2019 8:04 PM EDT [employer], [place] [address] [employer] - Tracey Clark MD PT ID [id number] ORD# [id number] Naresh Mendez NP LAB - BLOOD DRAW Final Result [address] [address], * HISTORIC COLONOSCOPY (07/24/2016 3:00 AM EST) 07/24/2016 3:00 AM EST Anna Marie Kenny PA-C PROCEDURES Final Result * HEPATITIS A,B,C PANEL (05/03/2014 8:06 PM EST) HEPATITIS B SURFACE ANTIBODY NEGATIVE NEGATIVE [facility] HEPATITIS B SURFACE ANTIGEN NEGATIVE NEGATIVE [facility] HEPATITIS C VIRUS ANTIBODY NEGATIVE NEGATIVE [facility] HEPATITIS B CORE ANTIBODY NEGATIVE NEGATIVE [facility] HEPATITIS A ANTIBODY TOTAL NEGATIVE NEGATIVE [facility] Blood specimen (specimen) Blood / Unknown 05/03/2014 8:06 PM EST 05/04/2014 12:52 AM EST Narrative [facility] - 05/04/2014 1:04 PM EST [facility] [address] [place] [address] PT ID [id number] ORD# [id number] Rissa Petersen DNP LAB - BLOOD DRAW Edited Res ult - Final [facility] [address] [place] [address], from Last 3 Months or Most Recently Relevant to Health Maintenance Insurance [place] MEDICA[place] DENT[place] HEALTH SAF[employer]Y NET DENTAL [employer] Member Subscriber Plan / Payer (Ef fective 2017-Present) Name:Braeden Greenwood Relation to Subscriber:Self Name:Braeden Greenwood Payer ID:[id number] Group ID:Not on file Type:Medicaid Address: [address] [place] [id number] [facility] Care Teams Mail Room Relationship Specialty Start Date End Date Dannie Morales FNP [address] [place] [address] PCP - General Family Medicine, [employer] 06/29/23
--- OUTSIDE RECORDS SUMMARY | 2024-11-13 08:27 | XMS_ITS | Encounter Summary ---
Author Organization [facility] Address [address] [place] [address] Care Team Providers Care Camera Person Name Role Phone Dannie Morales Primary Care Prov ider Encounter Details Date Type Department Care Team (Late st Contact Info) Description 09/02/2022 / TELEPHONE Person [facility] [address] [place] [id number] Lacie Mart [address] [place] [address] Major depressive disorder, single episode, severe (HCC-CMS) [...] Diagnosis Major depressive disorder, single episode, severe ([facility])- Primary Major depressive disorder, single episode, severe, without mention of psychotic behavior Low income Inadequate material resources Insufficient social insurance or welfare support Other specified housing or economic circumstances documented in this encounter Additional Health Concerns Assessment Noted Time PHQ-9 Depression Total Score: 1 07/10/19 23 4:18 PM PST documented as of this encounter Care Teams Camera Person Relationship Specialty Start Date End Date Dannie Morales FNP [address] [place] [address] PCP - General Family Medicine, [employer]INE MECH[employer]IC 06/29/23 documented as of this encounter
--- OUTSIDE RECORDS SUMMARY | 2024-11-13 08:27 | XMS_ITS | Clinical Summary ---
Author Organization [facility] it Address [address] [place] [address] Care Team Providers Care Coke Wheeler Name Role Phone Unavailable Primary Care Provider [...] - 2023-2 5 season) 2024 Influenza Vaccine (Season Ended) 2025 HIB Vaccines Aged Out No longer eligi [...] age to complete this topic Meningococcal B Vaccine Aged Out No l onger eligible based on patient's age to complete [...]
--- NOTE | 2024-11-13 12:28 | A.OFFVIS_ITS ---
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* Tech Ed Teacher Required: Yes Tech Ed Teacher Services: Tech Ed Teacher Present Information Interpreted: clinical only Allergies aspirin Allergy (Verified 11/13/24 12:29) Unknown Medication List - Last Reconciled 11/13/24 by Jean Zhang MD amlodipine 10 mg PO DAILY 90 days atorvastatin 80 mg PO BEDTIME 90 days blood sugar diagnostic (FreeStyle Lite Strips) Use 1 test strip once a day blood-glucose meter (FreeStyle Lite Meter kit) As directed diphenhydramine HCl (Allergy Relief (diphenhydramine)) 25 mg PO TID PRN 30 days duloxetine 30 mg PO DAILY 90 days fexofenadine (Allergy Relief (fexofenadine)) 180 mg PO Q24H 90 days lancets (FreeStyle Lancets) use 1 lancet once a day lidocaine 5% (Lidoderm) 1 patch topical DAILY metformin ER 500 mg PO QAM 90 days metoprolol succinate ER 100 mg PO DAILY 90 days omeprazole 20 mg PO DAILY 90 days pregabalin 25 mg PO BEDTIME 30 days HPI HPI TV 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 AIDE SWL vs MWL BMI 43.2 *PRINCIPAL SCIENTIST*: Details: Start time: 12.16pm, End time: 1.16pm ?I spent 55 minutes speaking with the patient on the phone plus an additional 5 minutes reviewing and updating records for a total of 60 minutes HPI Comments Details: Previous weight loss efforts: diet and exercise Wakes up: 6am Sleeps: 12am Breakfast: often skips but occasionally has Lunch: 12 (fries) (skips when he has breakfast) Dinner: 5-7pm (meat, chicken, rice, beans) Snacks: 10pm (chips, toast) Exercise: has home stationary bike Beverages: Coffee (2-3 cups/d with creamer and sugar or black), t ea:occasionally, soda: 1-2/wk, juice: Crystal light, ETOH: none PFSH Medical History (Updated 03/19/25 @ 10:39 by Nishi Gotti MD) Diabetes mellitus type 2 in obese Anxiety Depressed High cholesterol HTN (hypertension) Meniscus, lateral, derangement Left sided sciatica Gout Vitamin D deficiency Surgical History (Updated 11/13/24 @ 12:37 by Jean Zhang MD) History of ventral hernia repair Duodenal ulcer Family History Mother Diabetes Father Diabetes Family/Other Mental health disorder Sister Colon cancer Social History Housing: Apartment Alcohol intake: never Patient Tobacco Use Status: Never used Tobacco e-Cigarette/Vaping Use: Never Used Second Hand Smoke Exposure: No service: No Current occupational status: disabled Cognitive needs: Yes Hearing needs: No Vision needs: Yes Telehealth Telehealth Telehealth Platform: Telephone Location of provider rendering services: practice address Location of patient: address on file Patient Identification confirmed using: Name, : Yes Telehealth method: voice only Patient verbally consented to treatment: Yes Patient verbally consented to billing insurance company: Yes Patient informed of any privacy concerns related to visit: Yes Minutes spent on Phone/Video with Pt.: 60 Assessment & Plan Assessment & Plan (1) Morbid obesity with BMI of 40.0-44.9, adult: Code(s): E66.01 - Morbid (severe) obesity due to excess calories; Z68.41 - Body mass index [BMI] 40.0-44.9, adult Category: Medical Plan: 1.? Plan for lap sleeve gastrectomy. If diaphragmatic or ventral hernias are present at time of surgery, these will be repaired laparoscopically as well. I emphasized the importance of close follow-up, adherence to instructions and good communication. The surgery does not replace the need to change your lifestlyle which is the cause of the obesity problem. The surgery provides the motivation to try again to change your lifestyle, it reduces the appetite and make the transition to a better lifestyle easier and doubles the amount of weight you would lose compared to doing the lifestyle change without the surgery. You will need to be on a liquid diet with protein shakes for 2 weeks before surgery to maximize weight loss and boost your nutritional status to recover better from surgery and also for the first two weeks after surgery to let the stomach heal before we introduce other foods. After the first 2 weeks we will introduce protein bars and soft foods like scrambled eggs, cottage cheese and yogurt and after the 6th week will introduce meat, fish and cooked vegetables in small amounts. Over time you should be able to eat everything in small amounts. Side effects like nausea, vomiting, heartburn or abdominal pain are not common in the practice unless you are not following in the practice. This operation requires lifetime commitment to following in our practice and communication with me. You will much less weight and experience side effects if you don?t communicate or not following in the practice. Complications are rare and in our practice is about 1/10 of the national average. However, you can develop bleeding that may require transfusion (hasn?t happened for year in the practice), you may from complications (we did not have any deaths in the practice) and infections. Infections are usually a result of breakdown in communication or not understanding or following directions correctly. They are difficult to treat, they can happen during the first 6 weeks, they may require to be in the hospital for weeks or even months, not being able to eat by mouth and you may have drains and surgeries to try and correct the issue. Other risks and complications include possible conversion to an open procedure, leaks, small bowel obstruction, blood clots, cardiac, or pulmonary complications, as termite control representative complications such as ulcers, insufficient weight loss and vitamin deficiencies. 2.? Nutritional counseling. Start with 2 Premier protein (buy at [employer] or [employer]) shakes (8oz per shake and NOT the whole bottle) at 7am-9am and 10am- 12pm, 2 protein bars (Fit Crunch protein bars, buy at [employer] or [employer]) at 1pm- 3pm and 4pm-6pm, dinner at 7pm (12 forks of protein and 12 forks of salad/vegetables) and one more protein bar after dinner at 9pm-11pm. So you do 2 protein shakes, 3 protein bars and one meal per day. Meal to include lean meat (beef, fish, pork, turkey, chicken), or yi yogurt, or egg whites, or beans with a salad with olive oil and fruits (berries, pears, apples, kiwi). Avoid salt, breads, potatoes, rice, pasta, desserts. 3. Each shake would be drunk slowly, like coffee in a period of 2 hours. 4. Cut each bar in 4 pieces and eat each piece in 30min ?to make each bar last 2 hours. 5. I emphasized the importance of measuring accurately the food portion and measure it when serving the food in plate 6. The meal portions include 12 full-size forks of meat and 12 full-size forks of salad. You always eat the meat portion but you can replace up to 6 forks for salad/vegetables with rice, potatoes or pasta, or a fruit ?if you like. The less you do it the better weight loss will be. 7. One full-size fork is what it can be scooped on the fork without falling aside and not what can be bit with the fork. Use regular forks like those you find in a typical restaurant. 8.? Please buy the body composition scale we discussed and send me weight measurements as soon as possible and then once a week. Always include your diet and exercise plan. 9. Start stationary bike at a resistance level of 4.0 Increase level by 1.0 every 3 min to a max level of 10.0. Stay at this level for 3 min and then return to level 4.0 and repeat same steps until 300 calories are burned. Goal is to burn 2000 calories per week on exercise 10. Goal to lose 10% of your weight before surgery, which is about 32lbs. Ultimate weight goal: 286lbs before surgery 11. Please follow the diet plan exactly without any change. If you don't like something about the plan or you feel hungry you need to communicate with me so I can help you revise the plan. You should not change the plan yourself 12. To be scheduled for EGD to assess the stomach's anatomy. The possibility of biopsies was discussed. Patient needs to avoid use of NSAIDs and aspirin for 1 week prior to EGD. You must be on liquids only the day before your endoscopy. Risks of perforation and bleeding was discussed with the patient. This will be an outpatient procedure with IV sedation. 13. I ordered a medication to help you with the weight loss which is called Ana. My office will try to authorize it. Please let me know when you receive it so I can give you a meal and exercise plan. Common side effects include nausea, vomiting, constipation, diarrhea, abdominal pain. Please let me know if you develop any of these symptoms. Orders: Orders Comprehensive Met. Panel Today E11.9 - Type 2 diabetes mellitus without complications, E66.01 - Morbid (severe) obesity due to excess calories, E78.00 - Pure hypercholesterolemia, unspecified, E78.5 - Hyperlipidemia, unspecified, I10 - Essential (primary) hypertension, K21.9 - Gastro-esophageal reflux disease without esophagitis, Z68.41 - Body mass index [BMI] 40.0-44.9, adult Vitamin B12 and Folate Today E11.9 - Type 2 diabetes mellitus without complications, E66.01 - Morbid (severe) obesity due to excess calories, E78.00 - Pure hypercholesterolemia, unspecified, E78.5 - Hyperlipidemia, unspecified, I10 - Essential (primary) hypertension, K21.9 - Gastro-esophageal reflux disease without esophagitis, Z68.41 - Body mass index [BMI] 40.0-44.9, adult Zinc Today E11.9 - Type 2 diabetes mellitus without complications, E66.01 - Morbid (severe) obesity due to excess calories, E78.00 - Pure hypercholesterolemia, unspecified, E78.5 - Hyperlipidemia, unspecified, I10 - Essential (primary) hypertension, K21.9 - Gastro-esophageal reflux disease without esophagitis, Z68.41 - Body mass index [BMI] 40.0-44.9, adult C Reactive Protein Today E11.9 - Type 2 diabetes mellitus without complications, E66.01 - Morbid (severe) obesity due to excess calories, E78.00 - Pure hypercholesterolemia, unspecified, E78.5 - Hyperlipidemia, unspecified, I10 - Essential (primary) hypertension, K21.9 - Gastro-esophageal reflux disease without esophagitis, Z68.41 - Body mass index [BMI] 40.0-44.9, adult Vitamin B1 Today E11.9 - Type 2 diabetes mellitus without complications, E66.01 - Morbid (severe) obesity due to excess calories, E78.00 - Pure hypercholesterolemia, unspecified, E78.5 - Hyperlipidemia, unspecified, I10 - Essential (primary) hypertension, K21.9 - Gastro-esophageal reflux disease without esophagitis, Z68.41 - Body mass index [BMI] 40.0-44.9, adult US abdomen comp w elastography Today E11.9 - Type 2 diabetes mellitus without complications, E66.01 - Morbid (severe) obesity due to excess calories, E78.00 - Pure hypercholesterolemia, unspecified, E78.5 - Hyperlipidemia, unspecified, I10 - Essential (primary) hypertension, K21.9 - Gastro-esophageal reflux disease without esophagitis, Z68.41 - Body mass index [BMI] 40.0-44.9, adult XR chest 2V Today E11.9 - Type 2 diabetes mellitus without complications, E66.01 - Morbid (severe) obesity due to excess calories, E78.00 - Pure hypercholesterolemia, unspecified, E78.5 - Hyperlipidemia, unspecified, I10 - Essential (primary) hypertension, K21.9 - Gastro-esophageal reflux disease without esophagitis, Z68.41 - Body mass index [BMI] 40.0-44.9, adult ECG 12 lead EKG Today E11.9 - Type 2 diabetes mellitus without complications, E66.01 - Morbid (severe) obesity due to excess calories, E78.00 - Pure hypercholesterolemia, unspecified, E78.5 - Hyperlipidemia, unspecified, I10 - Essential (primary) hypertension, K21.9 - Gastro-esophageal reflux disease without esophagitis, Z68.41 - Body mass index [BMI] 40.0-44.9, adult Insulin Today E11.9 - Type 2 diabetes mellitus without complications, E66.01 - Morbid (severe) obesity due to excess calories, E78.00 - Pure hypercholesterolemia, unspecified, E78.5 - Hyperlipidemia, unspecified, I10 - Essential (primary) hypertension, K21.9 - Gastro-esophageal reflux disease without esophagitis, Z68.41 - Body mass index [BMI] 40.0-44.9, adult Hemoglobin A1c Today E11.9 - Type 2 diabetes mellitus without complications, E66.01 - Morbid (severe) obesity due to excess calories, E78.00 - Pure hypercholesterolemia, unspecified, E78.5 - Hyperlipidemia, unspecified, I10 - Essential (primary) hypertension, K21.9 - Gastro-esophageal reflux disease without esophagitis, Z68.41 - Body mass index [BMI] 40.0-44.9, adult H Pylori Breath Test Today E11.9 - Type 2 diabetes mellitus without complications, E66.01 - Morbid (severe) obesity due to excess calories, E78.00 - Pure hypercholesterolemia, unspecified, E78.5 - Hyperlipidemia, unspecified, I10 - Essential (primary) hypertension, K21.9 - Gastro-esophageal reflux disease without esophagitis, Z68.41 - Body mass index [BMI] 40.0-44.9, adult Complete Blood Count Auto Diff Today E11.9 - Type 2 diabetes mellitus without complications, E66.01 - Morbid (severe) obesity due to excess calories, E78.00 - Pure hypercholesterolemia, unspecified, E78.5 - Hyperlipidemia, unspecified, I10 - Essential (primary) hypertension, K21.9 - Gastro-esophageal reflux disease without esophagitis, Z68.41 - Body mass index [BMI] 40.0-44.9, adult Lipid Panel Today E11.9 - Type 2 diabetes mellitus without complications, E66.01 - Morbid (severe) obesity due to excess calories, E78.00 - Pure hypercholesterolemia, unspecified, E78.5 - Hyperlipidemia, unspecified, I10 - Essential (primary) hypertension, K21.9 - Gastro-esophageal reflux disease without esophagitis, Z68.41 - Body mass index [BMI] 40.0-44.9, adult IRON PROFILE Today E11.9 - Type 2 diabetes mellitus without complications, E66.01 - Morbid (severe) obesity due to excess calories, E78.00 - Pure hypercholesterolemia, unspecified, E78.5 - Hyperlipidemia, unspecified, I10 - Essential (primary) hypertension, K21.9 - Gastro-esophageal reflux disease without esophagitis, Z68.41 - Body mass index [BMI] 40.0-44.9, adult Vitamin A Today E11.9 - Type 2 diabetes mellitus without complications, E66.01 - Morbid (severe) obesity due to excess calories, E78.00 - Pure hyp ercholesterolemia, unspecified, E78.5 - Hyperlipidemia, unspecified, I10 - Essential (primary) hypertension, K21.9 - Gastro-esophageal reflux disease without esophagitis, Z68.41 - Body mass index [BMI] 40.0-44.9, adult TSH reflex Free T4 Today E11.9 - Type 2 diabetes mellitus without complications, E66.01 - Morbid (severe) obesity due to excess calories, E78.00 - Pure hypercholesterolemia, unspecified, E78.5 - Hyperlipidemia, unspecified, I10 - Essential (primary) hypertension, K21.9 - Gastro-esophageal reflux disease without esophagitis, Z68.41 - Body mass index [BMI] 40.0-44.9, adult Ferritin Today E11.9 - Type 2 diabetes mellitus without complications, E66.01 - Morbid (severe) obesity due to excess calories, E78.00 - Pure hypercholes terolemia, unspecified, E78.5 - Hyperlipidemia, unspecified, I10 - Essential (primary) hypertension, K21.9 - Gastro-esophageal reflux disease without esophagitis, Z68.41 - Body mass index [BMI] 40.0-44.9, adult Vitamin D 25-OH Total Today E11.9 - Type 2 diabetes mellitus without complications, E66.01 - Morbid (severe) obesity due to excess calories, E78.00 - Pure hypercholesterolemia, unspecified, E78.5 - Hyperlipidemia, unspecified, I10 - Essential (primary) hypertension, K21.9 - Gastro-esophageal reflux disease without esophagitis, Z68.41 - Body mass index [BMI] 40.0-44.9, adult FL upper GI w air Today E11.9 - Type 2 diabetes mellitus without complications, E66.01 - Morbid (severe) obesity due to excess calories, E78.00 - Pure hyperch olesterolemia, unspecified, E78.5 - Hyperlipidemia, unspecified, I10 - Essential (primary) hypertension, K21.9 - Gastro-esophageal reflux disease without esophagitis, Z68.41 - Body mass index [BMI] 40.0-44.9, adult Referrals Behavioral Health Referral E11.9 - Type 2 diabetes mellitus without complications, E66.01 - Morbid (severe) obesity due to excess calories, E78.00 - Pure hypercholesterolemia, unspecified, E78.5 - Hyperlipidemia, unspecified, I10 - Essential (primary) hypertension, K21.9 - Gastro-esophageal reflux disease without esophagitis, Z68.41 - Body mass index [BMI] 40.0-44.9, adult Nutrition/Dietitian Referral E11.9 - Type 2 diabetes mellitus without complications, E66.01 - Morbid (severe) obesity due to excess calories, E78.00 - Pure hypercholesterolemia, unspecified, E78.5 - Hyperlipidemia, unspecified, I10 - Essential (primary) hypertension, K21.9 - Gastro-esophageal reflux disease without esophagitis, Z68.41 - Body mass index [BMI] 40.0-44.9, adult Medications: New tirzepatide (Mounjaro) for 4 weeks 2.5 mg (0.5 mL) subcut QWEEK 2 mL 0RF
[2024-11-13 12:37] VITALS: BMI 43.2
== END 2024-11-13 13:17 | disposition home or self-care (01) ==
LOC: HO.HBS 08:21
PROVIDERS: PCP Internal Medicine; Visit Provider Surgery
DX: E66.01 Morbid (severe) obesity due to excess calories (principal); Z68.41 Body mass index [BMI] 40.0-44.9, adult
CPT/HCPCS: 99205

== ENCOUNTER → 2024-11-13 08:21 | Outpatient (BNVA) | payer MEDICARE, MEDICAID, SELFPAY | PROVIDERS: PCP Internal Medicine; Visit Provider Surgery | DX: Z13.89 Encounter for screening for other disorder (principal) ==

== ENCOUNTER → 2024-11-16 12:14 | Outpatient (BNVA) | payer MEDICARE, MEDICAID, SELFPAY | PROVIDERS: PCP Internal Medicine; Visit Provider Physician Assistant Surgical ==

== ENCOUNTER 2024-11-23 09:21 | Outpatient (REF) | payer MEDICARE, MEDICAID, SELFPAY ==
--- NOTE | ~2024-11-23 | XR_ITS ---
CLINICAL HISTORY: E66.01 - Morbid (severe) obesity due to excess calories 2 view chest x-ray Comparison: None Findings: The lungs are clear. Heart size is normal. No acute fracture. IMPRESSION: 1. No acute findings. This document has been electronically signed by: Scott Kingsley MD on 11/24/2024 08:48:24
[2024-11-23 09:42] LABS: MANUAL DIFF FLAG NO
--- OUTSIDE RECORDS SUMMARY | 2024-11-23 09:45 | XMS_ITS | Clinical Summary ---
Author Organization [facility] Address [address] [place] [address] Care Team Providers Care Choker Hooker Name Role Phone Dannie Morales CART PUSHER Primary Care Prov ider Source Comments PLEASE [...] mcg/actuation nasal sprayIndications:Se asonal allergies Place 1 Brandon in both nostrils once daily 16 g 2 05/11/20 22 Active lidocaine (LIDODERM) 5 % patchIndications:Ch ronic left-sided low back pain with bilateral sciatica Place 1 Patch onto the skin once daily (every 24 hours) 30 Patch 2 05/11/20 22 Active metFORMIN XR (GLUCOPHAGE-XR) 500 mg 24 hr tabletIndications:T ype 2 diabetes mellitus without complication, without long-term current use of insulin ([facility]) Take 1 Tablet by mouth once daily [...] Overview (05/16/2021): Report: CR Calcaneus Heel RT [facility] 05/09/2021 HISTORY: The patient is a 50-year-old male with chronic right heel pain, nontraumatic. FINDINGS: AP and lateral radiographs of the right calcaneus are obtained. The study demonstrates no fracture, dislocation, arthritic change, or other bony abnormality. No soft tissue abnormality is seen. IMPRESSION: Normal examination. Report: CR Calcaneus Heel RT Date: 05/09/[address] [facility] HISTORY: The patient is a 50-year-old male with chronic right heel pain, nontraumatic. FINDINGS: AP and lateral radiographs of the right calcaneus are obtained. The study demonstrates no fracture, dislocation, arthritic change, or other bony abnormality. No soft tissue abnormality is seen. IMPRESSION: Normal examination. Prediabetes 12/13/2020 Morbid obesity ([facility]) 11/28/2020 Restless leg syndrome 11/28/2020 Mixed hyperlipidemia 11/28/2020 Major depressive disorder, single episode, sever e ([facility]) 02/29/2020 Panic attacks 02/29/2020 MARCELINO (obstructive sleep apnea) 12/04/2019 Overview (07/10/2022): Jun 2022: reports compliance with CPAP Severe depression ([facility]) 07/13/2019 Chronic left-sided low back pain with left-sided sciatica 04/16/2016 Overview (07/27/2016): [facility]-07/01/2016- Discussed trial of joint injections. Tendinitis of right rotator cuff 10/15/2014 Overview (03/23/2015): With impingement. Injection therapy NEOS GERD (gastroesophageal reflux disease) 5 Hypertriglyceridemia 06/06/2014 HTN (hypertension) 05/03/2014 Resolved Problems Problem Noted Date Diagnosed Date Resolved Date Morbid obesity with BMI of 4 0.0-44.9, adult ([facility]) 05/15/2015 07/10/2022 Immunizations Immunization Administration Dates [...] icated (All Coverage) 07/10/2023 07/10/2022, 12/07/2016, 05/15/2015 [id number] ( season) 2024 07/10/2022, 12/09/2021, 05/30/2021, Additional [...] EDT) GLUCOSE 170(H) 65 - 139 mg/dL [facility] Comment: ?Non-fasting reference interval UREA NITROGEN (BUN) 13 7 - 25 mg/dL [facility] CREATININE (blood) 0.89 0.70 - 1.33 mg/dL [facility] Comment: For patients >49 years of age, the reference limit for Creatinine is approximately 13% higher for people identified as -Stateless. GFR ESTIMATED 100 > OR = 60 mL/min/1 .73m2 [facility] EGFR 116 > OR = 60 mL/min/1 .73m2 [facility] BUN/CREATININE RATIO NOT APPLICABLE 6 - 22 [facility] SODIUM 138 135 - 146 mmol/L [facility] POTASSIUM 4.4 3.5 - 5.3 mmol/L [facility] CHLORIDE 105 98 - 110 mmol/L [facility] CARBON DIOXIDE 25 20 - 32 mmol/L [facility] CALCIUM 9.1 8.6 - 10.3 mg/dL [facility] Blood Blood / Unknown 09/12/2021 1 0:04 AM EDT 09/12/2021 10:05 AM EDT Narrative [facility] - 09/15/2021 12:25 PM EDT FASTING:NO us Anna Marie Kenny PA-C LAB - BLOOD DRAW Edited Result - Final [facility] [address] [address], [facility] [address] [address] * (ABNORMAL) LIPID PANEL (12/06/2020 9:28 AM EDT) CHOLESTEROL, TOTAL 158 <200 mg/dL [facility] HDL CHOLESTEROL 41 > OR = 40 mg/dL [facility] TRIGLYCERIDES 216(H) <150 mg/dL [facility] Comment: If a non-fasting specimen was collected, consider repeat triglyceride testing on a fasting specimen if clinically indicated. Carmen et al. J. of Clin. Lipidol. 2015;9:129-169. LDL-CHOLESTEROL 86 99 mg/dL (calc) [facility] Comment: Reference range: <100 Desirable range <100 mg/dL for primary prevention; ?? <70 mg/dL for patients with CHD or diabetic patients with > or = 2 CHD risk factors. LDL-C is now calculated using the April calculation, which is a validated novel method providing better accuracy than the Friedewald equation in the estimation of LDL-C. Kartik GALVAN et al. SALLY. 2013;310(19): 5240-7552 (http://education.Videolicious/faq/SGN306) CHOL/HDLC RATIO 3.9 <5.0 (calc) [facility] NON-HDL CHOLESTEROL 117 <130 mg/dL (calc) [facility] Comment: For patients with diabetes plus 1 major ASCVD risk factor, treating to a non-HDL-C goal of <100 mg/dL (LDL-C of <70 mg/dL) is considered a therapeutic option. Blood Blood / Unknown 12/06/2020 9 :28 AM EDT 12/06/2020 9:29 AM EDT Anna Marie Kenny PA-C LAB - BLOOD DRAW Edited Result - Final [facility] [address] [address], [facility] [address] [address] * HIV-1 & HIV-2 ANTIBODIES (01/23/2019 3:51 PM EDT) [facility] HIV 1 AND 2 ANTIBODY SCREEN NEGATIVE NEGATIVE [facility] Comment: This assay is a 4th generation [...] PM EDT 01/23/2019 3:55 PM EDT Narrative [facility] - 01/23/2019 8:04 PM EDT [employer], [place] [address] [employer] Shear Operator - Tracey Clark MD PT ID [id number] ORD# [id number] Naresh Mendez NP LAB - BLOOD DRAW Final Result [address] [address], * HISTORIC COLONOSCOPY (07/24/2016 3:00 AM EST) [...] PM EST 05/04/2014 12:52 AM EST Narrative [facility] - 05/04/2014 1:04 PM EST [facility] [address] [place] [address] PT ID [id number] ORD# [id number] Rissa Petersen DNP LAB - BLOOD DRAW Edited Res ult - Final [facility] [address] [place] [address], from Last 3 Months or Most Recently Relevant to Health Maintenance Insurance [place] D[place] SAFETY NET D[facility]AL [facility] [employer] Care Teams Choker Hooker Relationship Specialty Start Date End Date Dannie Morales FNP [address] [place] [address] PCP - General Family Medicine, CURVE CLEANER 06/29/23
[2024-11-23 10:19] LABS: Basophils Percent Auto 0.3 % (0-2); Eosinophils Absolute Auto 0.1 X10*3/uL (0.0-0.4); Eosinophils Percent Auto 1.7 % (0-4); Hemoglobin 15.2 g/dl (14.0-18.0); Imm Gran Abs Auto 0.02 X10*3/uL (0.00-0.03); Imm Gran Pct Auto 0.3 % (0.0-0.4); Lymphocytes Absolute Auto 1.9 X10*3/uL (1.2-4.9); Lymphocytes Percent Auto 26.7 % (20-40); Mean Corpuscular Hemoglobin 28.3 pg (27.0-33.0); Mean Corpuscular Volume 85.7 fL (80.0-98.0); Mean Platelet Volume 10.4 fL (9.4-12.4); Monocytes Absolute Auto 0.5 X10*3/uL (0.1-1.2); Monocytes Percent Auto 7.6 % (2-11); Neutrophils Absolute Auto 4.5 x10*3/uL (2.0-8.3); Neutrophils Percent Auto 63.4 % (45-73); Platelet Count 221 X10*3/uL (160-400); Red Blood Count 5.37 X10*6/uL (4.60-5.80)
[2024-11-23 10:37] LABS: Estimated Average Glucose 140 mg/dL; Hemoglobin A1C 184.0863 umol/L; Hemoglobin A1c % 6.5 % (<6.0); Total Hemoglobin (HGBA1C) 3833.4201 umol/L
[2024-11-23 10:49] LABS: Alanine Aminotransferase 41 U/L (0-40); Albumin Level 4.3 g/dL (3.5-5.0); Alkaline Phosphatase 76 U/L (39-117); Anion Gap 12 (12-20); Aspartate Amino Transferase 37 U/L (5-37); Bilirubin Total 0.6 mg/dL (0.0-1.0); Blood Urea Nitrogen 20 mg/dL (9-16); C Reactive Protein 1.78 mg/dL (< or = 0.50); Calcium 10.1 mg/dL (8.4-10.2); Carbon Dioxide 28 mmol/L (22-29); Chloride 105 mmol/L (96-108); Cholesterol 210 mg/dL (<200); Estimated Glomerular Filt Rate > 60; Glucose Random 98 mg/dL (60-115); HDL Cholesterol 39 mg/dL (>40); Iron 82 mcg/dL (45-160); LDL Cholesterol Calculated 126 mg/dL (<100); Percent Iron Saturation 28 % (15-50); Sodium 141 mmol/L (135-145); Total Iron Binding Capacity 297 mcg/dL (228-428); Total Protein 7.3 g/dL (6.5-8.0); Triglycerides 226 mg/dL (<150); Unsaturated Iron Binding 215 ug/dL
[2024-11-23 11:05] LABS: Ferritin 169 ng/mL (20-250)
[2024-11-23 11:19] LABS: Folate 8.1 ng/mL (> or = 4.0); Vitamin B12 479 pg/mL (200-900)
[2024-11-23 11:20] LABS: Insulin 34 uU/mL (2-29)
[2024-11-26 22:13] LABS: Zinc 76 mcg/dL (60-130)
[2024-11-28 02:29] LABS: Vitamin A 57 mcg/dL (38-98)
[2024-11-28 15:09] LABS: Vitamin B1 10 nmol/L (8-30)
== END 2024-11-23 09:22 | disposition home or self-care (01) ==
LOC: HO.XRAY 09:21
PROVIDERS: PCP Internal Medicine; Visit Provider Surgery
DX: I10 Essential (primary) hypertension (principal); Z68.41 Body mass index [BMI] 40.0-44.9, adult; E11.9 Type 2 diabetes mellitus without complications; E78.5 Hyperlipidemia, unspecified; E78.00 Pure hypercholesterolemia, unspecified; K21.9 Gastro-esophageal reflux disease without esophagitis; E66.01 Morbid (severe) obesity due to excess calories
CPT/HCPCS: 36415; 71046; 80053; 80061; 82306; 82607; 82728; 82746; 83036; 83525; 83540; 84425; 84443; 84590; 84630; 85025; 86140; 93005

== ENCOUNTER → 2024-11-23 09:41 | Outpatient (BNV) | payer MEDICARE, MEDICAID, SELFPAY | PROVIDERS: PCP Internal Medicine; Visit Provider Specialist | DX: E66.01 Morbid (severe) obesity due to excess calories (principal) | CPT/HCPCS: 71046 ==

== ENCOUNTER 2025-01-03 10:26 | Outpatient (REF) | payer MEDICARE, MEDICAID, SELFPAY ==
--- NOTE | ~2025-01-03 | US_ITS ---
EXAMINATION: US ABDOMEN COMPLETE WITH LIVER ELASTOGRAPHY HISTORY: E66.01 - Morbid (severe) obesity due to excess calories TECHNIQUE: Real-time grayscale ultrasound imaging of the abdomen was performed and images were reviewed. COMPARISON: There are no prior studies available for comparison. FINDINGS: Liver: The right lobe of the liver measures 17.5 cm in size. The left lobe of the liver measures 8.7 cm in size. The liver demonstrates coarsened, increased echotexture, consistent with steatosis. No focal mass or intrahepatic biliary ductal dilatation is identified. There is normal hepatopedal flow in the portal vein. Ultrasound elastography of the liver was performed with 10 separate measurements of the liver parenchyma with the patient in the supine position. Measurements were obtained approximately 2 cm below Harlan's capsule and perpendicular to the capsule. The median shear wave velocity is 1.41 m/s. The interquartile range/median (IQR/median) is 0.18. Gallbladder and biliary tree: The gallbladder is unremarkable, without evidence of calculi, wall thickening, or pericholecystic fluid. There is no sonographic Franklin sign. The common bile duct is normal in caliber measuring 4 mm. Kidneys: The right kidney measures 12.7 cm in length and demonstrates a 2.3 x 1.4 x 1.4 cm cyst at the lower pole. The left kidney measures 11.8 cm in length. The kidneys are otherwise unremarkable, without evidence of solid masses, hydronephrosis, or calculi. Pancreas: The pancreas is obscured by bowel gas. Spleen: The spleen is enlarged, measuring 12.6 cm in length. Abdominal aorta and inferior vena cava: The visualized portions of the abdominal aorta and inferior vena cava are normal in caliber. There is no free fluid in the abdomen. US/US abdomen comp w elastography IMPRESSION: 1. Hepatic steatosis. 2. Splenomegaly. The median shear wave velocity in the liver is 1.41 m/s, corresponding to a median liver stiffness of 6.08 kPa. The IQR/median value is 0.18. This is indicative of a poor quality data set, and the estimated liver stiffness may be unreliable. Findings are indicative of a low elastography value which rules out advanced chronic liver disease in asymptomatic patients. REFERENCE: Society of Radiologists in Ultrasound Liver Stiffness Thresholds (2020): LIVER STIFFNESS THRESHOLDS: *Shear wave velocity less than 1.3 m/s (Liver Stiffness equal or less than 5 kPa): High probability of being normal. *Shear wave velocity less than 1.7 m/s (Liver Stiffness less than 9 kPa): In the absence of other known clinical signs, rules out compensated advanced chronic liver disease. *Shear wave velocity between 1.7-2.1 m/s (Liver Stiffness 9-13 kPa): Suggestive of compensated advanced chronic liver disease but need further test for confirmation. *Shear wave velocity between 2.1-2.4 m/s (Liver Stiffness 13-17 kPa): Rules in compensated advanced chronic liver disease. *Shear wave velocity greater than 2.4 m/s (Liver Stiffness over 17 kPa): Suggestive of clinically significant portal hypertension. QUALITY OF DATA SET: *IQR/Median value equal or less than 0.15 implies a quality data set. *IQR/Median value over 0.15 implies a poor quality data set. SIGNIFICANT CHANGE FROM PRIOR EXAM: Significant change if liver stiffness measurement is 10% or greater from prior exam. OTHER CONSIDERATIONS: The stage of liver fibrosis may be overestimated in the setting of acute hepatitis, liver inflammation, elevated liver function tests, hepatic vascular congestion, obstructive cholestasis, non-fasting state, and infiltrative diseases such as amyloidosis and lymphoma. In some patients with NAFLD, the liver stiffness thresholds for compensated advanced chronic liver disease may be lower. In causes other than viral hepatitis and NAFLD, liver stiffness thresholds are not well established. Electronically signed by: Jos Preciado MD 01/03/2025 11:05 AM EDT
--- OUTSIDE RECORDS SUMMARY | 2025-01-03 11:18 | XMS_ITS | Clinical Summary ---
Author Organization [facility] it Address [address] [place] [address] Care Team Providers Care Equipment Worker Name Role Phone Unavailable Primary Care Provider [...] 2023-2 5 season) 2024 Influenza Vaccine (#1) 2025 HIB Vaccines Aged Out No longer [...] 5 Years) and At-Risk Patients (6 to 49 Years) Aged Out No longer eligible b ased on patient's age to complete this topic RSV Immunization Patients Un gregory 20 months Aged Out No longer eligible b ased on patient's age to complete this topic Varicella Vaccines Aged Out No longer eligible based on patient's age to complete this topic
== END 2025-01-03 10:27 | disposition home or self-care (01) ==
LOC: HO.US 10:26
PROVIDERS: PCP Internal Medicine; Visit Provider Surgery
DX: K21.9 Gastro-esophageal reflux disease without esophagitis (principal); E66.01 Morbid (severe) obesity due to excess calories; Z68.41 Body mass index [BMI] 40.0-44.9, adult; I10 Essential (primary) hypertension; E11.9 Type 2 diabetes mellitus without complications; E78.5 Hyperlipidemia, unspecified; E78.00 Pure hypercholesterolemia, unspecified
CPT/HCPCS: 76700; 76981

== ENCOUNTER → 2025-01-03 10:28 | Outpatient (BNV) | payer MEDICARE, MEDICAID, SELFPAY | PROVIDERS: PCP Internal Medicine; Visit Provider Radiology Diagnostic Radiology | DX: K76.0 Fatty (change of) liver, not elsewhere classified (principal); R16.1 Splenomegaly, not elsewhere classified | CPT/HCPCS: 76700 ==

== ENCOUNTER 2025-01-26 08:34 | Outpatient (REF) | payer MEDICARE, MEDICAID, SELFPAY ==
--- OUTSIDE RECORDS SUMMARY | 2025-01-26 08:45 | XMS_ITS | Clinical Summary ---
Author Organization [facility] it Address [address] [place] [address] Care Team Providers Care Carburetor Specialist Name Role Phone Unavailable Primary Care Provider [...] Panel) 05/27/2022 Colorectal Cancer Screening: Colonoscopy 05/27/2022 HIV Screening 05/27/2022 Hepatitis C Screening 05/27/2022 Social Influencers of Health Screening 05/27/2022 COVID-19 Vaccine (1 - 2023-2 5 season) 2024 Depression Screening 06/28/2024 Influenza Vaccine (#1) 2025 HIB Vaccines Aged [...]
--- OUTSIDE RECORDS SUMMARY | 2025-01-26 08:45 | XMS_ITS | Clinical Summary ---
Author Organization [facility] Address [address] [place] [address] Care Team Providers Care Residential Mortgage Underwriter Name Role Phone Dannie Morales MOTOR AND CHASSIS INSPECTOR Primary Care Prov ider Source Comments PLEASE [...] mcg/actuation nasal sprayIndications:Se asonal allergies Place 1 [place] in both nostrils once daily 16 g 2 05/11/20 22 Active lidocaine (LIDODERM) 5 % patchIndications:Ch ronic left-sided low back pain with bilateral sciatica Place 1 Patch onto the skin once daily (every 24 hours) 30 Patch 2 05/11/20 22 Active metFORMIN XR (GLUCOPHAGE-XR) 500 mg 24 hr tabletIndications:T ype 2 diabetes mellitus without complication, without long-term current use of insulin ([facility]) Take 1 Tablet by mouth once daily [...] (BMI) of 45.0 to 49.9 in adult ([facility]) 06/30/2021 Chronic foot pain, right 05/16/2021 Overview (05/16/2021): Report: CR Calcaneus Heel RT [facility] 05/09/2021 HISTORY: The patient is a 50-year-old male with chronic right heel pain, nontraumatic. FINDINGS: AP and lateral radiographs of the right calcaneus are obtained. The study demonstrates no fracture, dislocation, arthritic change, or other bony abnormality. No soft tissue abnormality is seen. IMPRESSION: Normal examination. Report: CR Calcaneus Heel RT Date: 05/09/2021 [facility] HISTORY: The patient is a 50-year-old male with chronic right heel pain, nontraumatic. FINDINGS: AP and lateral radiographs of the right calcaneus are obtained. The study demonstrates no fracture, dislocation, arthritic change, or other bony abnormality. No soft tissue abnormality is seen. IMPRESSION: Normal examination. Prediabetes 12/13/2020 Morbid obesity ([facility]) 11/28/2020 Restless leg syndrome 11/28/2020 Mixed hyperlipidemia 11/28/2020 Major depressive disorder, s harmony episode, severe ([facility]) 02/29/2020 Panic attacks 02/29/2020 MARCELINO (obstructive sleep apnea) 12/04/2019 Overview (07/10/2022): Jun 2022: reports compliance with CPAP Severe depression ([facility]) 07/13/2019 Chronic left-sided low back pain with left-sided sciatica 04/16/2016 Overview (07/27/2016): [facility]-07/01/2016- Discussed trial of joint injections. Tendinitis of right rotator cuff 10/15/2014 Overview (03/23/2015): With impingement. Injection therapy NEOS GERD (gastroesophageal reflux disease) 5 Hypertriglyceridemia 06/06/2014 HTN (hypertension) 05/03/2014 Resolved Problems Problem Noted Date Diagnosed Date Resolved Date Morbid obesity with BMI of 4 0.0-44.9, adult ([facility]) 05/15/2015 07/10/2022 Immunizations Immunization Administration Dates Next [...] 99 07/10/2022 3:28 PM EST Temperature 36.9 C (98.5 F) 07/10/2022 3:28 PM EST Respiratory Rate 16 07/10/2022 3:28 PM EST [...] 10/31/2015 Fecal DNA 10/31/2015 Flexible Sigmoidoscopy 10/31/2015 Imm-Pneumococcal 50+ (2 of 2 - PCV) 06/14/2021 06/14/2020 Lipid Screening 12/06/2021 12/06/2020, 10/27, 11/14/2018, Additional history exists Anxiety Screening 01/20/2022 01/20/2021 Diabetes Screening 09/12/2022 09/12/2021, 0 09/12/2021, 03/10/2021, Additional history exists Depression Monitoring 10/08/2022 07/10/2022 , 04/16/2022, 09/10/2021, Additional history exists Annual Wellness (Adult): Ind icated (All Coverage) 07/10/2023 07/10/2022, 12/07/2016, 05/15/2015 [id number] ( season) 2024 07/10/2022, 12/09/2021, 05/30/2021, Additional history exists Alcohol and Drug Screen 06/28/2024 07/10/19 23, 09/10/2021, 08/27/2020, Additional history exists Imm-Influenza (#1) 2025 07/10/2022, 1 07/31/2020, 06/14/2020, Additional history exists Colonoscopy 07/24/2026 07/24/2016, 07/24/2016 [...] EDT) GLUCOSE 170(H) 65 - 139 mg/dL [facility] Comment: Non-fasting reference interval UREA NITROGEN (BUN) 13 7 - 25 mg/dL [facility] CREATININE (blood) 0.89 0.70 - 1.33 mg/dL [facility] Comment: For patients >49 years of age, the reference limit for Creatinine is approximately 13% higher for people identified as -[place]. GFR ESTIMATED 100 > OR = 60 mL/min/1 .73m2 [facility] EGFR 116 > OR = 60 mL/min/1 .73m2 [employer] [facility] BUN/CREATININE RATIO NOT APPLICABLE 6 - 22 [employer] [facility] SODIUM 138 135 - 146 mmol/L [employer] [facility] POTASSIUM 4.4 3.5 - 5.3 mmol/L [employer] [facility] CHLORIDE 105 98 - 110 mmol/L [employer] [facility] CARBON DIOXIDE 25 20 - 32 mmol/L [employer] [facility] CALCIUM 9.1 8.6 - 10.3 mg/dL [employer] [facility] Blood Blood / Unknown 09/12/2021 1 0:04 AM EDT 09/12/2021 10:05 AM EDT Narrative [employer] [facility] - 09/15/2021 12:25 PM EDT FASTING:NO Anna Marie Kenny PA-C LAB - BLOOD DRAW Edited Result - Final [employer] [facility] [address] [address], [employer] [facility] [address] [address] * (ABNORMAL) LIPID PANEL (12/06/2020 9:28 AM EDT) CHOLESTEROL, TOTAL 158 <200 mg/dL [employer] [facility] HDL CHOLESTEROL 41 > OR = 40 mg/dL [employer] [facility] TRIGLYCERIDES 216(H) <150 mg/dL [employer] [facility] Comment: If a non-fasting specimen was collected, consider repeat triglyceride testing on a fasting specimen if clinically indicated. Carmen et al. J. of Clin. Lipidol. 2015;9:129-169. LDL-CHOLESTEROL 86 99 mg/dL (calc) [employer] [facility] Comment: Reference range: <100 Desirable range <100 mg/dL for primary prevention; <70 mg/dL for patients with CHD or diabetic patients with > or = 2 CHD risk factors. LDL-C is now calculated using the April calculation, which is a validated novel method providing better accuracy than the Friedewald equation in the estimation of LDL-C. Kartik GALVAN et al. SALLY. 2013;310(19): 2216-5892 (http://education.5th Finger/faq/RJU551) CHOL/HDLC RATIO 3.9 <5.0 (calc) [facility] NON-HDL CHOLESTEROL 117 <130 mg/dL (calc) [facility] Comment: For patients with diabetes plus 1 major ASCVD risk factor, treating to a non-HDL-C goal of <100 mg/dL (LDL-C of <70 mg/dL) is considered a therapeutic option. Blood Blood / Unknown 12/06/2020 9 :28 AM EDT 12/06/2020 9:29 AM EDT Anna Marie Kenny PA-C LAB - BLOOD DRAW Edited Result - Final Performing Organization Address City/[facility]/ZIP Co de Phone Number [employer] [facility] [address] [address], [facility] [address] [address] * HIV-1 & HIV-2 ANTIBODIES (01/23/2019 3:51 PM EDT) [facility] HIV 1 AND 2 ANTIBODY SCREEN NEGATIVE NEGATIVE [facility] Comment: This assay is a 4th generation assay allowing for earlier detection of HIV infection by detecting the presence of the HIV-1 p24 antigen as well as the traditional antibodies to HIV type 1 (including group O) and type 2. Use of a 4th generation assay is the current CDC recommendation for HIV screening. Blood specimen (specimen) Blood / Unknown 01/23/2019 3:51 PM EDT 01/23/2019 3:55 PM EDT N[facility]ative [facility] 01/23/2019 8:04 PM EDT [employer], a member of [address] [address] Catering Truck Driver - Tracey Clark MD PT ID [id number] ORD# [id number] Naresh Mendez NP LAB - BLOOD DRAW Final Result Performing Organization Address City/[facility]/ZIP Co de Phone Number [address] [address], * HISTORIC COLONOSCOPY (07/24/2016 3:00 AM EST) 07/24/2016 3:00 AM EST Anna Marie GOLDBERG-Helio PROCEDURES Final Result * HEPATITIS A,B,C PANEL (05/03/2014 8:06 PM EST) HEPATITIS B SURFACE ANTIBODY NEGATIVE NEGATIVE [facility] HEPATITIS B SURFACE ANTIGEN NEGATIVE NEGATIVE [facility] HEPATITIS C VIRUS ANTIBODY NEGATIVE NEGATIVE [facility] HEPATITIS B CORE ANTIBODY NEGATIVE NEGATIVE [facility] HEPATITIS A ANTIBODY TOTAL NEGATIVE NEGATIVE [facility] Blood specimen (specimen) Blood / Unknown 05/03/2014 8:06 PM EST 05/04/2014 12:52 AM EST Narrative [facility] - 05/04/2014 1:04 PM EST [facility] [address] [place] [address] PT ID [id number] ORD# [id number] Rissa Petersen DNP LAB - BLOOD DRAW Edited Res ult - Final [facility] [address] [place] [address], from Last 3 Months or Most Recently Relevant to Health Maintenance Insurance [place] DENTAL [facility] SAFETY NET DENTAL [facility] [id number] [place] [address] PARTNERSHIP Care Teams Residential Mortgage Underwriter Relationship Specialty Start Date End Date Dannie Morales FNP [address] [place] [address] PCP - General Family Medicine, LEVER MILLER 06/29/23
[2025-01-26 09:20] LABS: Alanine Aminotransferase 38 U/L (0-40); Albumin Level 4.3 g/dL (3.5-5.0); Alkaline Phosphatase 79 U/L (39-117); Anion Gap 10 (12-20); Aspartate Amino Transferase 35 U/L (5-37); Blood Urea Nitrogen 13 mg/dL (9-16); Calcium 8.8 mg/dL (8.4-10.2); Carbon Dioxide 26 mmol/L (22-29); Chloride 108 mmol/L (96-108); Cholesterol 191 mg/dL (<200); Estimated Glomerular Filt Rate > 60; HDL Cholesterol 39 mg/dL (>40); Potassium 3.9 mmol/L (3.3-5.1); Sodium 140 mmol/L (135-145); Total Protein 7.0 g/dL (6.5-8.0); Triglycerides 183 mg/dL (<150)
[2025-01-26 09:40] LABS: Microalbum/Creatinine Ratio Ur 7.2 ug/mg cr (<30)
== END 2025-01-26 08:35 | disposition home or self-care (01) ==
LOC: HO.LAB 08:34
PROVIDERS: Absent Provider Surgery; PCP Internal Medicine; Visit Provider Internal Medicine
DX: E66.01 Morbid (severe) obesity due to excess calories (principal); E78.5 Hyperlipidemia, unspecified; R80.9 Proteinuria, unspecified; Z68.41 Body mass index [BMI] 40.0-44.9, adult
CPT/HCPCS: 36415; 80053; 80061; 82043; 82570

== ENCOUNTER 2025-01-26 09:48 | Outpatient (AMB) | payer MEDICARE, MEDICAID, SELFPAY ==
--- NOTE | 2025-01-26 10:10 | A.OFFWM_ITS ---
Intake Intake Visit Reasons: OV BH Intake Allergies aspirin Allergy (Verified 11/13/24 12:29) Unknown [facility] Medical History (Updated 11/24/24 @ 21:03 by Jean Zhang MD) Diabetes mellitus type 2 in obese Anxiety Depressed High cholesterol HTN (hypertension) Meniscus, lateral, derangement Left sided sciatica Gout Vitamin D deficiency Surgical History (Updated 11/13/24 @ 12:37 by Jean Zhang MD) History of ventral hernia repair Duodenal ulcer Family History Mother Diabetes Father Diabetes Family/Other Mental health disorder Sister Colon cancer Social History Housing: Apartment Alcohol intake: never Patient Tobacco Use Status: Never used Tobacco e-Cigarette/Vaping Use: Never Used Second Hand Smoke Exposure: No service: No Current occupational status: disabled Cognitive needs: Yes Hearing needs: No Vision needs: Yes Behavioral Health Assessment Weight Management Therapy Therapy Notes Details Patient is a 54-year-old male presenting for an initial visit to begin a behavioral health assessment as part of the surgical weight loss program. He reports that he was initially referred by his primary care provider for bariatric surgery. Presenting Concerns Referral Source WMP- Provider Reason for referral Completion of behavioral health assessment as part of process for weight-loss surgery. Precipitating Event Obesity. Living Situation Current Living Situation Rent At risk of losing current housing? No Satisfied with current living situation? Yes Comments PT lives with his and 2 children. Food/Weight/Diet Expectations of change Initial goal is to Weight as of last friday 01/19 299Lbs Patient goals are PT is implementing the following: Current meal plan: Exercise plan: scale: yes Communication w/ provider: yes, on Fridays History/Relationship with food Example of meals before starting the program: Breakfast: Lunch: Dinner: Snacks: Drinks/Liquids: History/Relationship with weight In the last 10 years, the patient's Lowest weight was and highest Social History Family history and relationship PT is about 10 years ago. Pt has 2 adult children. Has 2 children, they are 15 and 8 years old. Father alive, he has 3 siblings. PT reports good/normal family relationships. 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 Developmental history and status Currently WNL. Social support Family, kids, close family. 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 Cultural/Ethnic information . PT from [place], been in [place] 12 years ago. Legal Involvement and History Current or historical involvement with the legal system? None reported. Education Highest grade completed Bachelors degree. Preferred learning style Auditory, Verbal, Written, Learn by doing and Visual Currently enrolled in educational program? No Interested in further educational program? Yes Educational Interests/Skills Psychology. Has a bachelor's in criminal justice. Employment Employment Status Unemployed (disabled and receives social security about 3-4 years ago. ) Wants help to find employment? No Meaningful activities watch sports, reading, collect coins Financial Situation Describe current financial situation Comfortable Financial assistance? SSI Service Service? No Mental Health and Addiction Treatment Psychiatric history The patient is currently being treated by his primary care provider for depression and anxiety and is prescribed duloxetine. However, he is not currently engaged in any formal mental health counseling or treatment. Medical and Physical Health Summary Additional Medical History not covered in history None aditional Sexual History concerns None reported Physical exam in the last year? Yes Questionnaires PHQ-9 Over the last 2 weeks, how often have you been bothered by any of the following problems? 1. Little interest or pleasure in doing things: more than half the days 2. Feeling down, depressed, or hopeless: several days 3. Trouble falling or staying asleep, or sleeping too much: several days 4. Feeling tired or having little energy: nearly every day 5. Poor appetite or overeating: more than half the days 6. Feeling bad about yourself - or that you are a failure or have let yourself or your family down: more than half the days 7. Trouble concentrating on things, such as reading the newspaper or watching television: more than half the days 8. Moving or speaking so slowly that other people could have noticed. Or the opposite - being so fidgety or restless that you have been moving around a lot more than usual: not at all 9. Thoughts that you would be better off or of hurting yourself in some way: not at all Total score: 13 Depression Screening Interpretation: Positive (From new Pt pack completed on 10/25/24) Depression Screening Done: Yes Source: Developed by Drs. Jos Field, Keesha Green, Lincoln Maldonado and colleagues, with an educational ajay from [employer]. Binge Eating Scale Group 1 A. I don't feel self-conscious about my wt. or body size when I'm with others. B. I feel concerned about how I look to others, but it normally does not make me fell disappointed with myself C. I do get self-conscious about my appearance and wt. which makes me feel disappointed in myself. D. I feel very self-conscious about my wt. and frequently I feel intense shame and disgust for myself. I try to avoid social contacts because of my self- consciousness. Response Group 1: B Group 2 A. I don't have any difficulty eating slowly in the proper manner. B. Although I seem to gobble down foods, I don't end up feeling stuffed because of eating to much. C. At times, I tend to eat quickly and then, I feel uncomfortably full afterwards. D. I have the habit of bolting down my food, without really chewing it. When this happens I usually feel uncomfortably stuffed because I've eaten to much. Response Group 2: C Group 3 A. I feel capable to control my eating urges when I want to. B. I feel like I have failed to control my eating more than the average person. C. I feel utterly helpless when it comes to feeling in control of my eating urges. D. Because I feel so helpless about controlling my eating I have become very desperate about trying to get control. Response Group 3: C Group 4 A. I don't have the habit of eating when I'm bored. B. I sometimes eat when I'm bored, but often I'm able to get busy and get my mind off food. C. I have a regular habit of eating when I'm bored, but occasionally, I can use some other activity to get my mind off eating. D. I have a strong habit of eating when I'm bored. Nothing seems to help me breath the habit. Response Group 4: C Group 5 A. I'm usually physically hungry when I eat something. B. Occasionally, I eat something on impulse even though I really am not hungry. C. I have the regular habit of eating foods, that I might not really enjoy, to satisfy a hungry feeling even though physically, I don't need the food. D. Although I'm not physically hungry, I get a hungry feeling in my mouth that only seems to be satisfied when I eat a food, like sandwich, that fills my mouth. Sometimes, when I eat the food to satisfy my mouth hunger, I then spit the food out so I won't gain weight. Response Group 5: B Group 6 A. I don't feel any guilt or self-hate after I overeat. B. After I overeat, occasionally I feel guilt or self-hate. C. Almost all the time I experience strong guilt or self-hate after I overeat. Response Group 6: B Group 7 A. I don't lose total control of my eating when dieting even after periods when I overeat. B. Sometimes when I eat a forbidden food on a diet, I feel like I blew it and eat even more. C. Frequently, I have the habit of saying to myself, I've blown it now, why not go all the way, when I overeat on a diet. When that happens I eat more. D. I have a regular habit of starting a strict diets for myself but I break the diets by going on an eating binge. My life seems to be either a feast or famine. Response Group 7: B Group 8 A. I rarely eat so much food that I feel uncomfortably stuffed afterwards. B. Usually about once a month, I each such a quantity of food, I end up feeling very stuffed. C. I have regular periods during the month when I eat large amounts of food, either at mealtime or at snacks. D. I eat so much food that I regularly feel quite uncomfortable after eating and sometimes a bit nauseous. Response Group 8: C Group 9 A. My level of calorie intake does not go up very high or go down very low on a regular basis. B. Sometimes after I overeat, I will try to reduce my caloric intake to almost nothing to compensate for the excess calories I've eaten. C. I have a regular habit of overeating during the night. It seems that my routi ne is not to be hungry in the morning but overeat in the evening. D. In my adult years, I have had week-long periods where I practically starve myself. This follows periods when I overeat. It seems I live a life of either feast or famine. Response Group 9: A Group 10 A. I usually am able to stop eating when I want to. I know when enough is enough. B. Every so often, I experience a compulsion to eat which I can't seem to control. C. Frequently, I experience strong urges to eat which I seem unable to control, but at other times I can control my eating urges. D. I feel incapable of controlling urges to eat. I have a fear of not being able to stop eating voluntarily. Response Group 10: C Group 11 A. I don't have any problem stopping eating when I feel full. B. I usually can stop eating when I feel full but occasionally overeat leaving me feeling uncomfortably stuffed. C. I have a problem stopping eating once I start and usually I feel uncomfortably stuffed after I eat a meal. D. Because I have a problem not being able to stop eating when I want, I sometimes have to induce vomiting to relieve my stuffed feeling. Response Group 11: B Group 12 A. I seem to eat just as much when I'm with others, Family social gatherings as when I'm by myself. B. Sometimes, when I'm with other persons, I don't eat as much as I want to eat because I'm self-conscious about my eating. C. Frequently, I eat only a small amount of food when others are present, because I'm very embarrassed about my eating. D. I feel so ashamed about overeating that I pick times to overeat when I know no one will see me. I feel like a closet eater. Response Group 12: D (not all the affirmation applies.) Group 13 A. I eat three meals a day with only an occasional between meal snack. B. I eat 3 meals a day, but I also normally snack between meals. C. When I am snacking heavily, I get in the habit of skipping regular meals. D. There are regular periods when I seem to be continually eating, with no planned meals. Response Group 13: B Group 14 A. I don't think much about trying to control unwanted eating urges. B. At least some of the time, I feel my thoughts are pre-occupied with trying to control my eating urges. C. I feel that frequently I spend much time thinking about how much I ate or about trying not to eat anymore. D. It seems to me that most of my waking hours are pre-occupied by thoughts about eating or not eating. I feel like I'm constantly struggling not to eat. Response Group 14: C Group 15 A. I don't think about food a great deal. B. I have strong craving for food but they last only for brief periods of time. C. I have days when I can't seem to think about anything else but food. D. Most of my days seem to be pre-occupied with thoughts about food. I feel like I live to eat. Response Group 15: C Group 16 A. I usually know whether or not I'm physically hungry. I take the right portion of food to satisfy me. B. Occasionally, I feel uncertain about knowing whether or not I'm physically hungry. A these times it's hard to know how much food I should take to satisfy me. C. Even though I might know how many calories I should eat, I don't have any id ea what is a normal amount of food for me. Response Group 16: A Binge Eating Score: 23 Score less than 17 Minimal Risk Score between 18-26 Moderate Risk Score between 27-46 High Risk Assessment & Plan Assessment & Plan (1) Adjustment disorder: Code(s): F43.20 - Adjustment disorder, unspecified Qualifiers: Adjustment disorder type: with depressed mood Qualified Code(s): F43.21 - Adjustment disorder with depressed mood Plan: Currently treated by PCP, on duloxetine. (2) Pre-bariatric surgery psychological evaluation: Code(s): Z71.89 - Other specified counseling Plan The patient was not cleared today, as the behavioral health assessment was not completed. He is scheduled to return in one week to continue the evaluation. A new PHQ-9 will be administered at that time. Next appointment: 02/02/2025 at 10:00 AM (in person). Coding Level of Care Code New Pt Psy Diag Eval (33342) Patient Type New Diagnoses Adjustment disorder with depressed mood F43.21 Adjustment disorder type: with depressed mood Pre-bariatric surgery psychological evaluation Z71.89 Time Spent (min) 55
== END 2025-01-29 09:25 | disposition home or self-care (01) ==
LOC: HO.HBST 09:48
PROVIDERS: PCP Internal Medicine; Visit Provider Counselor Mental Health
DX: F43.21 Adjustment disorder with depressed mood (principal); Z71.89 Other specified counseling
CPT/HCPCS: 90791

== ENCOUNTER 2025-01-31 09:55 | Outpatient (AMB) | payer MEDICARE, MEDICAID, SELFPAY ==
--- OUTSIDE RECORDS SUMMARY | 2025-01-31 10:27 | XMS_ITS | Clinical Summary ---
Author Organization [facility] it Address [address] [place] [address] Care Team Providers Care Heavy Cleaner Name Role Phone Unavailable Primary Care Provider [...]
--- OUTSIDE RECORDS SUMMARY | 2025-01-31 10:27 | XMS_ITS | Clinical Summary ---
Author Organization [facility] Address [address] [place] [address] Care Team Providers Care Revolving Field Assembler Name Role Phone Dannie Morales SPRAYING MACHINE OPERATOR Primary Care Prov ider Source Comments PLEASE [...] mcg/actuation nasal sprayIndications:Se asonal allergies Place 1 [place] in both nostrils once daily 16 g 2 05/11/20 22 Active lidocaine (LIDODERM) 5 % patchIndications:Ch ronic left-sided low back pain with bilateral sciatica Place 1 Patch onto the skin once daily (every 24 hours) 30 Patch 2 05/11/20 22 Active metFORMIN XR (GLUCOPHAGE-XR) 500 mg 24 hr tabletIndications:T ype 2 diabetes mellitus without complication, without long-term current use of insulin ([facility]) Take 1 Tablet by mouth once daily [...] (BMI) of 45.0 to 49.9 in adult ([facility]) 06/30/2021 Chronic foot pain, right 05/16/2021 Overview (05/16/2021): Report: CR Calcaneus Heel RT [facility] 05/09/2021 HISTORY: The patient is a 50-year-old male with chronic right heel pain, nontraumatic. FINDINGS: AP and lateral radiographs of the right calcaneus are obtained. The study demonstrates no fracture, dislocation, arthritic change, or other bony abnormality. No soft tissue abnormality is seen. IMPRESSION: Normal examination. Report: CR Calcaneus Heel RT Date: 05/09/2021 [facility] HISTORY: The patient is a 50-year-old male with chronic right heel pain, nontraumatic. FINDINGS: AP and lateral radiographs of the right calcaneus are obtained. The study demonstrates no fracture, dislocation, arthritic change, or other bony abnormality. No soft tissue abnormality is seen. IMPRESSION: Normal examination. Prediabetes 12/13/2020 Morbid obesity ([facility]) 11/28/2020 Restless leg syndrome 11/28/2020 Mixed hyperlipidemia 11/28/2020 Major depressive disorder, s harmony episode, severe ([facility]) 02/29/2020 Panic attacks 02/29/2020 MARCELINO (obstructive sleep apnea) 12/04/2019 Overview (07/10/2022): Jun 2022: reports compliance with CPAP Severe depression ([facility]) 07/13/2019 Chronic left-sided low back pain with left-sided sciatica 04/16/2016 Overview (07/27/2016): [facility]-07/01/2016- Discussed trial of joint injections. Tendinitis of right rotator cuff 10/15/2014 Overview (03/23/2015): With impingement. Injection therapy NEOS GERD (gastroesophageal reflux disease) 5 Hypertriglyceridemia 06/06/2014 HTN (hypertension) 05/03/2014 Resolved Problems Problem Noted Date Diagnosed Date Resolved Date Morbid obesity with BMI of 4 0.0-44.9, adult ([facility]) 05/15/2015 07/10/2022 Immunizations Immunization Administration Dates [...] icated (All Coverage) 07/10/2023 07/10/2022, 12/07/2016, 05/15/2015 Ona-INBDT-27 ( season) 2024 07/10/2022, 12/09/2021, 05/30/2021, Additional [...] EDT) GLUCOSE 170(H) 65 - 139 mg/dL [employer] [facility] Comment: Non-fasting reference interval UREA NITROGEN (BUN) 13 7 - 25 mg/dL [facility] CREATININE (blood) 0.89 0.70 - 1.33 mg/dL [facility] Comment: For patients >49 years of age, the reference limit for Creatinine is approximately 13% higher for people identified as -Spanish. GFR ESTIMATED 100 > OR = 60 mL/min/1 .73m2 [facility] EGFR 116 > OR = 60 mL/min/1 .73m2 [employer] [facility] BUN/CREATININE RATIO NOT APPLICABLE 6 - 22 [employer] [facility] SODIUM 138 135 - 146 mmol/L [employer] [facility] POTASSIUM 4.4 3.5 - 5.3 mmol/L [employer] [facility] CHLORIDE 105 98 - 110 mmol/L [employer] [facility] CARBON DIOXIDE 25 20 - 32 mmol/L [employer] [facility] CALCIUM 9.1 8.6 - 10.3 mg/dL [employer] [facility] Blood Blood / Unknown 09/12/2021 1 0:04 AM EDT 09/12/2021 10:05 AM EDT Narrative [employer] [facility] - 09/15/2021 12:25 PM EDT FASTING:NO Anna Marie Kenny PA-C LAB - BLOOD DRAW Edited Result - Final [employer] [facility] [address] [address], [employer] [facility] [address] [address] * (ABNORMAL) LIPID PANEL (12/06/2020 9:28 AM EDT) CHOLESTEROL, TOTAL 158 <200 mg/dL [employer] [facility] HDL CHOLESTEROL 41 > OR = 40 mg/dL [employer] [facility] TRIGLYCERIDES 216(H) <150 mg/dL [employer] [facility] Comment: If a non-fasting specimen was collected, consider repeat triglyceride testing on a fasting specimen if clinically indicated. Carmen et al. J. of Clin. Lipidol. 2015;9:129-169. LDL-CHOLESTEROL 86 99 mg/dL (calc) [employer] [facility] Comment: Reference range: <100 Desirable range <100 mg/dL for primary prevention; <70 mg/dL for patients with CHD or diabetic patients with > or = 2 CHD risk factors. LDL-C is now calculated using the April calculation, which is a validated novel method providing better accuracy than the Friedewald equation in the estimation of LDL-C. Kartik GALVAN et al. SALLY. 2013;310(19): 0709-8056 (http://education.FND/faq/GRP560) CHOL/HDLC RATIO 3.9 <5.0 (calc) [employer] [facility] NON-HDL CHOLESTEROL 117 <130 mg/dL (calc) [facility] Comment: For patients with diabetes plus 1 major ASCVD risk factor, treating to a non-HDL-C goal of <100 mg/dL (LDL-C of <70 mg/dL) is considered a therapeutic option. Blood Blood / Unknown 12/06/2020 9 :28 AM EDT 12/06/2020 9:29 AM EDT Anna Marie Kenny PA-C LAB - BLOOD DRAW Edited Result - Final Performing Organization Address City/[facility]/ZIP Co de Phone Number [employer] [facility] [address] [address], [employer] [facility] [address] [address] * HIV-1 & HIV-2 ANTIBODIES (01/23/2019 3:51 PM EDT) [facility] HIV 1 AND 2 ANTIBODY SCREEN NEGATIVE NEGATIVE [facility] Comment: This assay is a 4th [...] PM EDT 01/23/2019 3:55 PM EDT Narrative [facility] [facility] - 01/23/2019 8:04 PM EDT [employer], a member of [address] [address] Broadcast Supervisor - Tracey Clark MD PT ID [id number] ORD# [id number] Naresh Mendez NP LAB - BLOOD DRAW Final Result Performing Organization Address City/[facility]/ZIP Co de Phone Number [address] [address], * HISTORIC COLONOSCOPY (07/24/2016 3:00 AM EST) 07/24/2016 3:00 AM EST Anna Marie GOLDBERG-Helio PROCEDURES Final Result * HEPATITIS A,B,C PANEL (05/03/2014 8:06 PM EST) HEPATITIS B SURFACE ANTIBODY NEGATIVE NEGATIVE [facility] HEPATITIS B SURFACE ANTIGEN NEGATIVE NEGATIVE [facility] HEPATITIS C VIRUS ANTIBODY NEGATIVE NEGATIVE [facility] HEPATITIS B CORE ANTIBODY NEGATIVE NEGATIVE [facility] HEPATITIS A ANTIBODY TOTAL NEGATIVE NEGATIVE [facility] Blood specimen (specimen) Blood / Unknown 05/03/2014 8:06 PM EST 05/04/2014 12:52 AM EST Narrative [facility] - 05/04/2014 1:04 PM EST [facility] [address] [place] [address] PT ID [id number] ORD# [id number] Rissa Petersen DNP LAB - BLOOD DRAW Edited Res ult - Final [facility] [address] [place] [address], from Last 3 Months or Most Recently Relevant to Health Maintenance Insurance [place] MEDICA[place] DENTAL [facility] SAFETY NET DENTAL [facility] [id number] [place] [address] PARTNERSHIP Care Teams Revolving Field Assembler Relationship Specialty Start Date End Date Dannie Morales FNP [address] [place] [address] PCP - General Family Medicine, SERVICE DIRECTOR 06/29/23
[2025-01-31 10:39] VITALS: BP 136/80; PULSE 65; O2SAT 96; BMI 41.5
--- NOTE | 2025-01-31 10:39 | MHC.PC.OV ---
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: No Accompanied by: Self / Same As Patient Allergies aspirin Allergy (Verified 01/31/25 10:53) Unknown pregabalin Adverse Reaction (Intermediate, Verified 01/31/25 10:59) Dizziness Medication List - Last Reconciled 01/31/25 by Nishi Gotti MD amlodipine 10 mg PO DAILY 90 days atorvastatin 80 mg PO BEDTIME 90 days blood sugar diagnostic (FreeStyle Lite Strips) Use 1 test strip once a day blood-glucose meter (FreeStyle Lite Meter kit) As directed cholecalciferol (vitamin D3) 125 mcg PO DAILY diphenhydramine HCl (Allergy Relief (diphenhydramine)) 25 mg PO TID PRN 30 days duloxetine 30 mg PO DAILY 90 days fexofenadine (Allergy Relief (fexofenadine)) 180 mg PO Q24H 90 days lancets (FreeStyle Lancets) use 1 lancet once a day lidocaine 5% (Lidoderm) 1 patch topical DAILY metformin ER 500 mg PO QAM 90 days metoprolol succinate ER 100 mg PO DAILY 90 days omeprazole 20 mg PO DAILY 90 days pregabalin 25 mg PO BEDTIME 30 days tirzepatide (Mounjaro) 5 mg (0.5 mL) subcut QWEEK tirzepatide (Mounjaro) 2.5 mg (0.5 mL) subcut QWEEK Tobacco use date assessed: 01/31/25 Dental Screening Dental Screen Date: 01/31/25 Did you have a dental visit in the last 12 months?: No Did you have a dental problem in the last 6 months where you did not have access to dental care?: No Was dental information given to patient?: No HPI HPI Comments History of Present Illness Details The patient is a 54-year-old male presenting with a follow-up for Diabetes Mellitus, Type 2. His last hemoglobin A1c was measured on November 23, showing a value of 6.5%. The patient has been managing his condition with a combination of medications and lifestyle modifications, including a diet plan. The patient has a history of hyperlipidemia, with recent improvements noted in his cholesterol levels. His total cholesterol decreased from 210 mg/dL to 191 mg/dL, and LDL cholesterol decreased from 126 mg/dL to 116 mg/dL. Triglycerides also showed improvement, decreasing from 226 mg/dL to 183 mg/dL. The patient is also being treated for hypertension, with current blood pressure readings at 136/80 mmHg. He is on amlodipine 10 mg for blood pressure management. The patient reports a significant weight loss from 318 pounds in October to 306 pounds currently, attributed to dietary changes and medication. He acknowledges challenges in adhering strictly to the diet plan but has made progress. The patient has a history of vitamin D deficiency, with previous levels noted to be very low at 13 ng/mL. He is currently taking vitamin D supplements as part of his treatment regimen. The patient experiences sciatica, with pain radiating from the neck to the scapula and downwards, causing chills in the lower back. He reports hip and leg pain, which he manages without regular use of analgesics. The patient has a diagnosis of osteoarthritis and is scheduled for a rheumatology appointment in February. The patient has a history of coronary artery disease. [facility] Medical History Diabetes mellitus type 2 in obese Anxiety Depressed High cholesterol HTN (hypertension) Meniscus, lateral, derangement Left sided sciatica Gout Vitamin D deficiency Surgical History History of ventral hernia repair Duodenal ulcer Family History Mother Diabetes Father Diabetes Family/Other Mental health disorder Sister Colon cancer Social History Housing: Apartment Alcohol intake: never Patient Tobacco Use Status: Never used Tobacco e-Cigarette/Vaping Use: Never Used Second Hand Smoke Exposure: No service: No Current occupational status: disabled Cognitive needs: Yes Hearing needs: No Vision needs: Yes Questionnaire PHQ-9 Over the last 2 weeks, how often have you been bothered by any of the following problems? 1. Little interest or pleasure in doing things: several days 2. Feeling down, depressed, or hopeless: several days 3. Trouble falling or staying asleep, or sleeping too much: several days 4. Feeling tired or having little energy: several days 5. Poor appetite or overeating: not at all 6. Feeling bad about yourself - or that you are a failure or have let yourself or your family down: not at all 7. Trouble concentrating on things, such as reading the newspaper or watching television: not at all 8. Moving or speaking so slowly that other people could have noticed. Or the opposite - being so fidgety or restless that you have been moving around a lot more than usual: not at all 9. Thoughts that you would be better off or of hurting yourself in some way: not at all Total score: 4 Depression Screening Interpretation: Positive Depression Screening Follow-up: Existing condition and Follow-up Visit Requested Depression Screening Done: Yes 77619 - PHQ-9 Billing: Yes Source: Developed by Drs. Jos Field, Keesha Green, Lincoln Maldonado and colleagues, with an educational ajay from [employer]. Thrive Questionnaire Date Thrive assessed: 01/31/25 I am a: Patient What is your living situation today?: I have a steady place to live Within the past 12 months, did the food you bought not last and you didn't have the money to get more?: Sometimes True Within the past 12 months, did you worry whether your food would run out before you got money to buy more?: Sometimes True Do you have trouble paying for medicines?: No Do you have trouble getting transportation to medical appointments?: Yes Do you have trouble paying your heating and electricity bill?: Yes Do you have trouble taking care of your child, family member or friend?: No Do you have trouble with day-to-day activities such as bathing, preparing meals, shopping, managing finances, etc.?: I choose not to answer this question Are you currently unemployed and looking for a job?: Yes Are you interested in more education?: Yes Please select the resources that you would like help with: Food, Transportation, Utilities, Job search/training and Education Currently or been in a relationship where the following occur: No concerns reported THRIVE Score: 4 AUDIT C Alcohol Use Questionnaire (AUDIT-C) 1. How often do you have a drink containing alcohol?: Never 3. How often do you have six or more drinks on one occasion?: Never Total Score: 0 Score Reviewed/Action Taken: No VAN-7 AMB Questionnaire VAN-7 Date VAN - 7 assessed: 01/31/25 Feeling nervous, anxious, or on edge: 0 = Not at all Not being able to stop or control worryin = Several days Worrying too much about different things: 1 = Several days Trouble relaxin = Several days Being so restless that it is hard to sit still: 0 = Not at all Becoming easily annoyed or irritable: 1 = Several days Feeling afraid as if something awful might happen: 0 = Not at all Total VAN-7 score (0-4 normal; 5-9 mild; 10-14 moderate; 15-21 severe): 4 Source: Developed by Drs. Jos Field, Keesha Green, Lincoln Maldonado and colleagues, with an educational ajay from [employer]. VAN-7 Assessment Billing VAN-7 Assessment Tool: VAN-7 Assessment 51178 Review of Systems Const All systems reviewed & are unremarkable except as noted in HPI and below Card Denies chest pain at rest, Denies chest pain with activity, Denies edema, Denies irregular heart rhythm, Denies claudication, Denies dyspnea, Denies dyspnea on exertion, Denies orthopnea, Denies paroxysmal nocturnal dyspnea and Denies slow heart rate Resp Denies cough, Denies dyspnea and Denies dyspnea on exertion Physical exam (Primary Care) Vital Signs: Last Vital Signs Pulse 65 01/31/25 10:39 BP 136/80 01/31/25 10:39 Pulse Ox 96 01/31/25 10:39 Oxygen Delivery Method Room Air 01/31/25 10:39 BMI result Body Mass Index 41.5 BMI Assessment/Plan discussion: High BMI High, discussed plan: lifestyle, weight reduction, dietary and physical activity Tobacco/Smoking Status: Tobacco use Status Tobacco use date assessed 01/31/25 01/31/25 10:48 Patient Tobacco Use Status Never used Tobacco 01/31/25 10:48 e-Cigarette/Vaping Use Never Used 01/31/25 10:48 PHQ-9: PHQ-9 Score PHQ-9: Total score 4 01/31/25 10:48 Depression Screening Interpretation: Positive Depression Screening Follow-up: Existing condition and Follow-up Visit Requested Thrive Assessment: Date of Thrive Assessment Date Thrive assessed 01/31/25 01/31/25 10:48 Currently or been in a relationship where the following occur: No concerns reported Resp Effort & Inspection: normal respiratory effort Auscultation: clear to auscultation bilaterally Cardio Jugular venous distension: no JVD Rate: regular rate Rhythm: regular rhythm Heart sounds: S1 normal heart sound present and S2 normal heart sound present Extrem General: Yes full ROM Coding Level of Care Code Est Pt Level 4 (80599) Complex EM visit Add On G2211 Diagnoses Mild major depression F32.0 Essential hypertension I10 Hyperlipidemia LDL goal <70 E78.5 Type 2 diabetes mellitus without complication, without long-term current use of insulin E11.9 Diabetes mellitus terminal supervisor insulin use: without terminal supervisor use Diabetes mellitus complication status: without complication Morbid obesity with BMI of 40.0-44.9, adult E66.01; Z68.41 Vitamin D deficiency E55.9 Polyarthralgia M25.50 Additional Codes PHQ-9 - 04951 - PHQ-9 Billing: Yes ([id number]) VAN-7 Assessment Billing - VAN-7 Assessment Tool: VAN-7 Assessment [id number] ([id number]) Time Spent (min) 24 Assessment & Plan Assessment & Plan (1) Mild major depression: Code(s): F32.0 - Major depressive disorder, single episode, mild Category: Medical (2) Essential hypertension: Code(s): I10 - Essential (primary) hypertension Category: Medical (3) Hyperlipidemia LDL goal <70: Code(s): E78.5 - Hyperlipidemia, unspecified Category: Medical (4) Type 2 diabetes mellitus: Code(s): E11.9 - Type 2 diabetes mellitus without complications Category: Medical Qualifiers: Diabetes mellitus senior living insulin use: without terminal supervisor use Diabetes mellitus complication status: without complication Qualified Code(s): E11.9 - Type 2 diabetes mellitus without complications (5) Morbid obesity with BMI of 40.0-44.9, adult: Code(s): E66.01 - Morbid (severe) obesity due to excess calories; Z68.41 - Body mass index [BMI] 40.0-44.9, adult Category: Medical (6) Vitamin D deficiency: Code(s): E55.9 - Vitamin D deficiency, unspecified Category: Medical (7) Polyarthralgia: Code(s): M25.50 - Pain in unspecified joint Category: Medical Plan The patient will continue with his current medication regimen, including amlodipine for hypertension and atorvastatin for hyperlipidemia. Vitamin D supplementation will be maintained to address the deficiency. The patient is advised to adhere more closely to his dietary plan to further improve his weight and glycemic control. Follow-up appointments are scheduled, including a rheumatology consultation in February to address osteoarthritis and sciatica symptoms. The patient is encouraged to continue monitoring his blood pressure and blood glucose levels regularly. A repeat of laboratory tests, including lipid profile and A1c, is planned for April to assess progress. Patient was informed and verbally consented to the use of an ambient scribe for clinic note documentation during this visit. Orders: Orders Vitamin D 25-OH Total 3 Months E55.9 - Vitamin D deficiency, unspecified Microalbumin, Random (w Creat) 3 Months R80.9 - Proteinuria, unspecified Lipid Panel 3 Months E78.5 - Hyperlipidemia, unspecified Comprehensive [place]. Panel Fast 3 Months E66.01 - Morbid (severe) obesity due to excess calories, Z68.41 - Body mass index [BMI] 40.0-44.9, adult Medications: Refilled omeprazole 20 mg PO DAILY 90 caps 1RF 90 days lidocaine 5% (Lidoderm) leave on most painful area for up to 12 hrs 1 patch topical DAILY 30 ea 5RF Discontinued pregabalin Discontinued Reason: Patient Refused 25 mg PO BEDTIME 30 days 30 caps 0RF G62.9 - Polyneuropathy, unspecified
== END 2025-01-31 11:08 | disposition home or self-care (01) ==
LOC: HO.HMCH 09:56
PROVIDERS: PCP Internal Medicine; Visit Provider Internal Medicine
DX: F32.0 Major depressive disorder, single episode, mild (principal); I10 Essential (primary) hypertension; E78.5 Hyperlipidemia, unspecified; E11.9 Type 2 diabetes mellitus without complications; E66.01 Morbid (severe) obesity due to excess calories; Z68.41 Body mass index [BMI] 40.0-44.9, adult; E55.9 Vitamin D deficiency, unspecified; M25.50 Pain in unspecified joint

== ENCOUNTER → 2025-01-31 09:55 | Outpatient (BNVA) | payer MEDICARE, MEDICAID, SELFPAY | PROVIDERS: PCP Internal Medicine; Visit Provider Internal Medicine | DX: F32.0 Major depressive disorder, single episode, mild (principal); I10 Essential (primary) hypertension; E78.5 Hyperlipidemia, unspecified; E11.9 Type 2 diabetes mellitus without complications; E55.9 Vitamin D deficiency, unspecified; E66.01 Morbid (severe) obesity due to excess calories; Z68.41 Body mass index [BMI] 40.0-44.9, adult; M25.50 Pain in unspecified joint; Z71.3 Dietary counseling and surveillance | CPT/HCPCS: 96127; 99212 ==

== ENCOUNTER 2025-02-21 10:14 | Outpatient (AMB) | payer MEDICARE, MEDICAID, SELFPAY ==
--- NOTE | 2025-02-21 10:10 | A.OFFWM_ITS ---
Intake Intake Visit Reasons: TV BH Intake Part 2 Allergies aspirin Allergy (Verified 01/31/25 10:53) Unknown pregabalin Adverse Reaction (Intermediate, Verified 01/31/25 10:59) Dizz[facility] Medical History Diabetes mellitus type 2 in obese Anxiety Depressed High cholesterol HTN (hypertension) Meniscus, lateral, derangement Left sided sciatica Gout Vitamin D deficiency Surgical History History of ventral hernia repair Duodenal ulcer Family History Mother Diabetes Father Diabetes Family/Other Mental health disorder Sister Colon cancer Social History Housing: Apartment Alcohol intake: never Patient Tobacco Use Status: Never used Tobacco e-Cigarette/Vaping Use: Never Used Second Hand Smoke Exposure: No service: No Current occupational status: disabled Cognitive needs: Yes Hearing needs: No Vision needs: Yes Behavioral Health Assessment Weight Management Therapy Therapy Notes Details Patient is a 54-year-old [facility] as part of the surgical weight loss program. He reports that he was initially referred by his primary care provider for bariatric surgery. Presenting Concerns Referral Source WMP- Provider Reason for referral Completion of behavioral health assessment as part of process for weight-loss surgery. Precipitating Event Obesity. Living Situation Current Living Situation Rent At risk of losing current housing? No Satisfied with current living situation? Yes Comments PT lives with his and 2 children. Food/Weight/Diet Expectations of change PT started the program in 11/13/24 at 318Lbs and the initial goal was to lose 10% of his weight before surgery, which is about 32lbs. Ultimate weight goal: 286lbs before surgery Weight as of 01/19: 299Lbs. Patient would like to be at 250Lbs. Doesn't want to be under that weight. PT is implementing the following: -Current meal plan: 2 protein shakes, 3 protein bars, and one meal per day - PT reports he had difficulties following the plan, and he doesn't agree with the plan. -Exercise plan: Walking - 3 times a wee k, 20-30min. -scale: yes - Communication with/ provider: was on F ridays. However has not followed up with the patient for several weeks. History/Relationship with food PT doesn't like sweets or desserts, he likes food and meats. Not a picky eater. Example of meals before starting the program: Breakfast: 2 eggs. Lunch: Skip Dinner: Rice, beans, any type of meat, with salad and avocado. Snacks: Once in a while a protein shake. Drinks/Liquids: Coffee: 2-7 cups at day w/ 2 stevia packs each coffee and some milk at times. Tea: None. Soda: once in a while, 1 can. Juice: once in a while, iced tea with lemon. Water: 10-12 bottles at day. Alcohol: None. History/Relationship with weight PT reports in HS he was 160Lbs and started gaining weight once he got the first time (1992), years after that, he was never under 200Lbs again. PT reports that in recent years, he has had steady weight gain due to changes in lifestyle. In the last 10 years, the patient's Lowest weight was 225-230Lbs and the highest 310Lbs History/Relationship with dieting Self-diets. Binge Eating Do you frequently eat large amounts of food in short periods of time, not feeling physically hungry? No Do you feel out of control when you eat a large amount of food in a short period of time? No Do you eat large amounts of food rapidly and typically alone? No Night Eating Do you wake up at least once during the night to eat? No If you wake up in the night, do you find that it is necessary to eat something in order to fall back asleep? No Do you have little or no appetite in the morning and feel very hungry in the evening, often overeating between dinner and when you go to bed? No Social History Family history and relationship PT is about 10 years ago. Pt has 2 adult children. Has 2 children, they are 15 and 8 years old. Father alive, he has 3 siblings. PT reports good/normal family relationships. Parental/Familial asset manager obligations 2 children. Developmental history and status Currently WNL. Social support Family, kids, close family. Community support None Buddhism/Spirituality Buddhism. Cultural/Ethnic information . PT from [place], been in [place] 12 years ago. Legal Involvement and History Current or historical involvement with the legal system? None reported. Education Highest grade completed Bachelors degree. Preferred learning style Auditory, Verbal, Written, Learn by doing and Visual Currently enrolled in educational program? No Interested in further educational program? Yes Educational Interests/Skills Psychology. Has a bachelor's in criminal justice. Employment Employment Status Unemployed (disabled and receives social security about 3-4 years ago. ) Wants help to find employment? No Meaningful activities watch sports, reading, collect coins Financial Situation Describe current financial situation Comfortable Financial assistance? SSI Service Service? No Mental Health and Addiction Treatment Current/Past substance abuse? No Comments Alcohol: None Cigarettes/Tobacco: None Cannabis/Edibles: None. Current/Past addictive behavior concerns? No Psychiatric history The patient is currently being treated by his primary care provider for depression and anxiety and is prescribed duloxetine. However, he is not currently engaged in any formal mental health counseling or treatment. More than 5 years ago he attended counseling and medication management at [facility] due to the adjustment to losing his job and dealing with financial stress. He was presenting with symptoms of anxiety and depression. He also had an anxiety episode during the pandemic time. Crisis Eval around this time. Denies ever being inpatient for mental health. Also there is no hx or safety concerns around self-harm, other harm, SI/SA. Medical and Physical Health Summary Additional Medical History not covered in history None aditional Sexual History concerns None reported Physical exam in the last year? Yes Pain Screening Current pain? No Pain in the last few months? Yes Comments sciatic nerve pain, low back pain. Medications Is the patient compliant with medications? No Does the patient have Zazueta Guardian in place? Not applicable Does the patient use complimentary health approaches? No Questionnaires Binge Eating Scale Group 1 A. I don't feel self-conscious about my wt. or body size when I'm with others. B. I feel concerned about how I look to others, but it normally does not make me fell disappointed with myself C. I do get self-conscious about my appearance and wt. which makes me feel disappointed in myself. D. I feel very self-conscious about my wt. and frequently I feel intense shame and disgust for myself. I try to avoid social contacts because of my self- consciousness. Response Group 1: B Group 2 A. I don't have any difficulty eating slowly in the proper manner. B. Although I seem to gobble down foods, I don't end up feeling stuffed because of eating to much. C. At times, I tend to eat quickly and then, I feel uncomfortably full afterwards. D. I have the habit of bolting down my food, without really chewing it. When this happens I usually feel uncomfortably stuffed because I've eaten to much. Response Group 2: C Group 3 A. I feel capable to control my eating urges when I want to. B. I feel like I have failed to control my eating more than the average person. C. I feel utterly helpless when it comes to feeling in control of my eating urges. D. Because I feel so helpless about controlling my eating I have become very desperate about trying to get control. Response Group 3: C Group 4 A. I don't have the habit of eating when I'm bored. B. I sometimes eat when I'm bored, but often I'm able to get busy and get my mind off food. C. I have a regular habit of eating when I'm bored, but occasionally, I can use some other activity to get my mind off eating. D. I have a strong habit of eating when I'm bored. Nothing seems to help me breath the habit. Response Group 4: C Group 5 A. I'm usually physically hungry when I eat something. B. Occasionally, I eat something on impulse even though I really am not hungry. C. I have the regular habit of eating foods, that I might not really enjoy, to satisfy a hungry feeling even though physically, I don't need the food. D. Although I'm not physically hungry, I get a hungry feeling in my mouth that only seems to be satisfied when I eat a food, like sandwich, that fills my mouth. Sometimes, when I eat the food to satisfy my mouth hunger, I then spit the food out so I won't gain weight. Response Group 5: B Group 6 A. I don't feel any guilt or self-hate after I overeat. B. After I overeat, occasionally I feel guilt or self-hate. C. Almost all the time I experience strong guilt or self-hate after I overeat. Response Group 6: B Group 7 A. I don't lose total control of my eating when dieting even after periods when I overeat. B. Sometimes when I eat a forbidden food on a diet, I feel like I blew it and e at even more. C. Frequently, I have the habit of saying to myself, I've blown it now, why not go all the way, when I overeat on a diet. When that happens I eat more. D. I have a regular habit of starting a strict diets for myself but I break the diets by going on an eating binge. My life seems to be either a feast or famine. Response Group 7: B Group 8 A. I rarely eat so much food that I feel uncomfortably stuffed afterwards. B. Usually about once a month, I each such a quantity of food, I end up feeling very stuffed. C. I have regular periods during the month when I eat large amounts of food, either at mealtime or at snacks. D. I eat so much food that I regularly feel quite uncomfortable after eating and sometimes a bit nauseous. Response Group 8: C Group 9 A. My level of calorie intake does not go up very high or go down very low on a regular basis. B. Sometimes after I overeat, I will try to reduce my caloric intake to almost nothing to compensate for the excess calories I've eaten. C. I have a regular habit of overeating during the night. It seems that my r outine is not to be hungry in the morning but overeat in the evening. D. In my adult years, I have had week-long periods where I practically starve myself. This follows periods when I overeat. It seems I live a life of either feast or famine. Response Group 9: A Group 10 A. I usually am able to stop eating when I want to. I know when enough is enough. B. Every so often, I experience a compulsion to eat which I can't seem to control. C. Frequently, I experience strong urges to eat which I seem unable to control, but at other times I can control my eating urges. D. I feel incapable of controlling urges to eat. I have a fear of not being able to stop eating voluntarily. Response Group 10: C Group 11 A. I don't have any problem stopping eating when I feel full. B. I usually can stop eating when I feel full but occasionally overeat leaving me feeling uncomfortably stuffed. C. I have a problem stopping eating once I start and usually I feel uncomfortably stuffed after I eat a meal. D. Because I have a problem not being able to stop eating when I want, I sometimes have to induce vomiting to relieve my stuffed feeling. Response Group 11: B Group 13 A. I eat three meals a day with only an occasional between meal snack. B. I eat 3 meals a day, but I also normally snack between meals. C. When I am snacking heavily, I get in the habit of skipping regular meals. D. There are regular periods when I seem to be continually eating, with no planned meals. Response Group 13: B Group 14 A. I don't think much about trying to control unwanted eating urges. B. At least some of the time, I feel my thoughts are pre-occupied with trying to control my eating urges. C. I feel that frequently I spend much time thinking about how much I ate or about trying not to eat anymore. D. It seems to me that most of my waking hours are pre-occupied by thoughts about eating or not eating. I feel like I'm constantly struggling not to eat. Response Group 14: C Group 15 A. I don't think about food a great deal. B. I have strong craving for food but they last only for brief periods of time. C. I have days when I can't seem to think about anything else but food. D. Most of my days seem to be pre-occupied with thoughts about food. I feel like I live to eat. Response Group 15: C Group 16 A. I usually know whether or not I'm physically hungry. I take the right portion of food to satisfy me. B. Occasionally, I feel uncertain about knowing whether or not I'm physically hungry. A these times it's hard to know how much food I should take to satisfy me. C. Even though I might know how many calories I should eat, I don't have any idea what is a normal amount of food for me. Response Group 16: A Binge Eating Score: 20 Score less than 17 Minimal Risk Score between 18-26 Moderate Risk Score between 27-46 High Risk Assessment & Plan Assessment & Plan (1) Adjustment disorder: Code(s): F43.20 - Adjustment disorder, unspecified Plan There are no significant mental health concerns that would impact the patient?s behavioral health clearance for weight-loss surgery. However, the patient is not demonstrating compliance with program requirements, which raises concerns about his commitment both pre- and post-operatively. As a result, he is not considered ready to proceed with surgical intervention at this time. The patient was candid in stating that he does not agree with the current meal plan and does not intend to follow it. He did note, however, that he was more successful in adhering to the plan while on Mounjaro and is interested in being considered for medical weight loss if the surgeon is open to this option. While GLP-1 therapy may be beneficial, this is ultimately a medical approach to be decided by the attending physician. This provider will update the care team and recommends ongoing support for behavioral modification and mindset change to achieve sustainable results. The patient agreed to follow up in one month. If he decides to pursue surgery in the future, a new behavioral health assessment will be required. * Next appointment:?03/21/25 at 10:00 AM (video visit). Telehealth Telehealth Telehealth Platform: Schedule Savvy Location of provider rendering services: other (Home office. [place], [place]) Location of patient: address on file Patient Identification confirmed using: Name, : Yes Telehealth method: video Patient verbally consented to treatment: Yes Patient verbally consented to billing insurance company: Yes Patient informed of any privacy concerns related to visit: Yes Minutes spent on Phone/Video with Pt.: 55 Coding Level of Care Code Established Pt Tele Psytx >53 mins (24502) Patient Type Established Diagnoses Adjustment disorder F43.20 Time Spent (min) 55
--- OUTSIDE RECORDS SUMMARY | 2025-02-21 11:01 | XMS_ITS | Encounter Summary ---
Author Organization [facility] Address [address] [place] [address] Care Team Providers Care Events Traffic Controller Name Role Phone Dannie Morales Primary Care Provider [phone] Encounter Details Date Type Department Care Team (Late st Contact Info) Description 09/02/2022 / TELEPHONE [facility] [address] [place] [id number] Lacie Mart [address] [place] [address] Social History Tobacco Use Types Packs/Day Years [...] Diagnosis Major depressive disorder, single episode, severe (CMS & HHS-HCC)- Primary Major depressive disorder, single episode, severe, without mention of psychotic behavior Low income Inadequate material resources Insufficient social insurance or welfare support Other specified housing or economic circumstances documented in this encounter Additional Health Concerns Assessment Noted Time PHQ-9 Depression Total Score: 1 07/10/19 23 4:18 PM PST documented as of this encounter Care Teams Events Traffic Controller Relationship Specialty Start Date End Date Dannie Morales FNP [facility] [place] [address] PCP - General Family Medicine, FIXTURE MAKER 06/29/23 documented as of this encounter
--- OUTSIDE RECORDS SUMMARY | 2025-02-21 11:01 | XMS_ITS | Clinical Summary ---
Author Organization [facility] it Address [address] [place] [address] Care Team Providers Care Tetryl Blender Operator Name Role Phone Unavailable Primary Care Provider [...]
--- OUTSIDE RECORDS SUMMARY | 2025-02-21 11:01 | XMS_ITS | Clinical Summary ---
Author Organization [facility] Address [address] [place] [address] Care Team Providers Care Leather Crafter Name Role Phone Dannie Morales Primary Care Provider [phone] Source Comments PLEASE NOTE, if this patient [...] mcg/actuation nasal sprayIndications:Se asonal allergies Place 1 Auberry in both nostrils once daily 16 g 2 05/11/20 22 Active lidocaine (LIDODERM) 5 % patchIndications:Ch ronic left-sided low back pain with bilateral sciatica Place 1 Patch onto the skin once daily (every 24 hours) 30 Patch 2 05/11/20 22 Active metFORMIN XR (GLUCOPHAGE-XR) 500 mg 24 hr tabletIndications:T ype 2 diabetes mellitus without complication, without long-term current use of insulin ([facility]) Take 1 Tablet by mouth once [...] (BMI) of 45.0 to 49.9 in adult ([facility]) 06/30/2021 Chronic foot pain, right 05/16/2021 Overview (05/16/2021): Report: CR Calcaneus Heel RT [facility] [place]/09/[place]21 HISTORY: The patient is a 50-year-old male with chronic right heel pain, nontraumatic. FINDINGS: AP and lateral radiographs of the right calcaneus are obtained. The study demonstrates no fracture, dislocation, arthritic change, or other bony abnormality. No soft tissue abnormality is seen. IMPRESSION: Normal examination. Report: CR Calcaneus Heel RT Date: 05/09/2021 [facility] HISTORY: The patient is a 50-year-old male with chronic right heel pain, nontraumatic. FINDINGS: AP and lateral radiographs of the right calcaneus are obtained. The study demonstrates no fracture, dislocation, arthritic change, or other bony abnormality. No soft tissue abnormality is seen. IMPRESSION: Normal examination. Prediabetes 12/13/2020 Morbid obesity ([facility]) 11/28/2020 Restless leg syndrome 11/28/2020 Mixed hyperlipidemia 11/28/2020 Major depressive disorder, s harmony episode, severe ([facility]) 02/29/2020 Panic attacks 02/29/2020 MARCELINO (obstructive sleep apnea) 12/04/2019 Overview (07/10/2022): Jun 2022: reports compliance with CPAP Severe depression ([facility]) 07/13/2019 Chronic left-sided low back pain with left-sided sciatica 04/16/2016 Overview (07/27/2016): [facility]-07/01/2016- Discussed trial of joint injections. Tendinitis of right rotator cuff 10/15/2014 Overview (03/23/2015): With impingement. Injection therapy NEOS GERD (gastroesophageal reflux disease) 5 Hypertriglyceridemia 06/06/2014 HTN (hypertension) 05/03/2014 Resolved Problems Problem Noted Date Diagnosed Date Resolved Date Morbid obesity with BMI of 4 0.0-44.9, adult ([facility]) 05/15/2015 07/10/2022 Immunizations Immunization Administration Dates Next [...] icated (All Coverage) 07/10/2023 07/10/2022, 12/07/2016, 05/15/2015 [id number] ( season) 2024 07/10/2022, 12/09/2021, 05/30/2021, Additional [...] EDT) GLUCOSE 170(H) 65 - 139 mg/dL [employer] [facility] Comment: Non-fasting reference interval UREA NITROGEN (BUN) 13 7 - 25 mg/dL [facility] CREATININE (blood) 0.89 0.70 - 1.33 mg/dL [facility] Comment: For patients >49 years of age, the reference limit for Creatinine is approximately 13% higher for people identified as -Israeli. GFR ESTIMATED 100 > OR = 60 mL/min/1 .73m2 [facility] EGFR 116 > OR = 60 mL/min/1 .73m2 [employer] [facility] BUN/CREATININE RATIO NOT APPLICABLE 6 - 22 [employer] [facility] SODIUM 138 135 - 146 mmol/L [employer] [facility] POTASSIUM 4.4 3.5 - 5.3 mmol/L [employer] [facility] CHLORIDE 105 98 - 110 mmol/L [employer] [facility] CARBON DIOXIDE 25 20 - 32 mmol/L [employer] [facility] CALCIUM 9.1 8.6 - 10.3 mg/dL [employer] [facility] Blood Blood / Unknown 09/12/2021 1 0:04 AM EDT 09/12/2021 10:05 AM EDT Narrative [employer] [facility] - 09/15/2021 12:25 PM EDT FASTING:NO us Anna Marie Kenny PA-C LAB - BLOOD DRAW Edited Result - Final [employer] [facility] [address] [address], [employer] [facility] [address] [address] * (ABNORMAL) LIPID PANEL (12/06/2020 9:28 AM EDT) CHOLESTEROL, TOTAL 158 <200 mg/dL [employer] [facility] HDL CHOLESTEROL 41 > OR = 40 mg/dL [employer] [facility] TRIGLYCERIDES 216(H) <150 mg/dL [employer] [facility] Comment: If a non-fasting specimen was collected, consider repeat triglyceride testing on a fasting specimen if clinically indicated. Carmen et al. J. of Clin. Lipidol. 2015;9:129-169. LDL-CHOLESTEROL 86 99 mg/dL (calc) [employer] [facility] Comment: Reference range: <100 Desirable range <100 mg/dL for primary prevention; <70 mg/dL for patients with CHD or diabetic patients with > or = 2 CHD risk factors. LDL-C is now calculated using the April calculation, which is a validated novel method providing better accuracy than the Friedewald equation in the estimation of LDL-C. Kartik GALVAN et al. SALLY. 2013;310(19): 7458-0809 (http://education.Gimmie/faq/WGK053) CHOL/HDLC RATIO 3.9 <5.0 (calc) [employer] [facility] NON-HDL CHOLESTEROL 117 <130 mg/dL (calc) [employer] [facility] Comment: For patients with diabetes plus 1 major ASCVD risk factor, treating to a non-HDL-C goal of <100 mg/dL (LDL-C of <70 mg/dL) is considered a therapeutic option. Blood Blood / Unknown 12/06/2020 9 :28 AM EDT 12/06/2020 9:29 AM EDT Anna Marie Kenny PA-C LAB - BLOOD DRAW Edited Result - Final Performing Organization Address City/[facility]/ZIP Co de Phone Number [employer] [facility] [address] [address], [employer] [facility] [address] [address] * HIV-1 & HIV-2 ANTIBODIES (01/23/2019 3:51 PM EDT) [facility] HIV 1 AND 2 ANTIBODY SCREEN NEGATIVE NEGATIVE [facility] Comment: This assay is a [...] PM EDT 01/23/2019 3:55 PM EDT Narrative [facility] 01/23/2019 8:04 PM EDT [employer], a member of [address] [address] Radiology Orderly - Tracey Clark MD PT ID [id number] ORD# [id number] Naresh Mendez NP LAB - BLOOD DRAW Final Result [address] [address], * HISTORIC COLONOSCOPY (07/24/2016 3:00 AM EST) 07/24/2016 3:00 AM EST Anna Marie GOLDBERG-Helio PROCEDURES Final Result * HEPATITIS A,B,C PANEL (05/03/2014 8:06 PM EST) HEPATITIS B SURFACE ANTIBODY NEGATIVE NEGATIVE [facility] HEPATITIS B SURFACE ANTIGEN NEGATIVE NEGATIVE [facility] HEPATITIS C VIRUS ANTIBODY NEGATIVE NEGATIVE [facility] HEPATITIS B CORE ANTIBODY NEGATIVE NEGATIVE [facility] HEPATITIS A ANTIBODY TOTAL NEGATIVE NEGATIVE [facility] Blood specimen (specimen) Blood / Unknown 05/03/2014 8:06 PM EST 05/04/2014 12:52 AM EST Narrative [facility] - 05/04/2014 1:04 PM EST [facility] [address] [place] [address] PT ID [id number] ORD# [id number] Rissa Petersen DNP LAB - BLOOD DRAW Edited Res ult - Final [facility] [address] [place] [address], from Last 3 Months or Most Recently Relevant to Health Maintenance Insurance [place] D[place] [facility] D[facility] [place]ALTHY [id number] [place] [address]TH PARTNERSHIP Care Teams Leather Crafter Relationship Specialty Start Date End Date Dannie Morales FNP [address] [place] [address] PCP - General Family Medicine, PLANT CHIEF 06/29/23
== END 2025-02-21 11:24 | disposition home or self-care (01) ==
LOC: HO.HBST 10:14
PROVIDERS: PCP Internal Medicine; Visit Provider Counselor Mental Health
DX: F43.20 Adjustment disorder, unspecified (principal)
CPT/HCPCS: 90837

== ENCOUNTER 2025-03-21 10:15 | Outpatient (AMB) | payer MEDICARE, MEDICAID, SELFPAY ==
--- NOTE | 2025-03-21 10:10 | MHC.WMTHER ---
Intake Intake Visit Reasons: VIDEO BH F/U Allergies aspirin Allergy (Verified 01/31/25 10:53) Unknown pregabalin Adverse Reaction (Intermediate, Verified 01/31/25 10:59) Dizziness PFSH Medical History Diabetes mellitus type 2 in obese Anxiety Depressed High cholesterol HTN (hypertension) Meniscus, lateral, derangement Left sided sciatica Gout Vitamin D deficiency Surgical History History of ventral hernia repair Duodenal ulcer Family History Mother Diabetes Father Diabetes Family/Other Mental health disorder Sister Colon cancer Social History Housing: Apartment Alcohol intake: never Patient Tobacco Use Status: Never used Tobacco e-Cigarette/Vaping Use: Never Used Second Hand Smoke Exposure: No service: No Current occupational status: disabled Cognitive needs: Yes Hearing needs: No Vision needs: Yes Behavioral Health Assessment Weight Management Therapy Therapy Notes Details Subjective: Patient reports recent weight gain due to not following his meal and exercise plan. He expresses interest in restarting Mounjaro and is open to discussing this option with his PCP if his surgeon is unable to continue prescribing it. Objective: Patient participated in a follow-up visit via telephone. Discussed current functioning and challenges related to eating behaviors. Utilized cognitive behavioral therapy (CBT) techniques to address mindset and habit formation. Reviewed the cycle of unhealthy eating, emphasizing how restriction can lead to overeating and snacking. Explored strategies to break these patterns and promote consistency with caloric intake and daily physical activity. Engaged in problem-solving to address barriers. Recommended the use of the RightBMI website for medical weight loss information and advised reaching out to Dr. Cortes for further guidance regarding the use of GLP-1s. Provided local resources for weight management should the patient choose not to continue with his current program. Assessment/Response: Mental status: WNL Risk reported/identified: None. Assessment & Plan Assessment & Plan (1) Adjustment disorder: Code(s): F43.20 - Adjustment disorder, unspecified Plan Patient will return for a follow-up session in one month. Patient is aware that the upcoming session will be the final appointment, as continued services with this provider require participation in the [facility] program. Next appointment scheduled for 04/18/25 at 10:00 AM via phone call. Telehealth Telehealth Telehealth Platform: [employer] Location of provider rendering services: practice address Location of patient: address on file Patient Identification confirmed using: Name, : Yes Telehealth method: video Patient verbally consented to treatment: Yes Patient verbally consented to billing insurance company: Yes Patient informed of any privacy concerns related to visit: Yes Minutes spent on Phone/Video with Pt.: 40 Coding Level of Care Code Established Pt Tele Psytx 45 mins (78783) Patient Type Established Diagnoses Adjustment disorder F43.20 Time Spent (min) 40
--- OUTSIDE RECORDS SUMMARY | 2025-03-21 12:35 | XMS_ITS | Clinical Summary ---
Author Organization [facility] Address [address] [place] [address] Care Team Providers Care Mailroom Personnel Name Role Phone Dannie Morales Primary Care Provider [phone] Source Comments PLEASE NOTE, if this patient [...] mcg/actuation nasal sprayIndications:Se asonal allergies Place 1 Felt in both nostrils once daily 16 g 2 05/11/20 22 Active lidocaine (LIDODERM) 5 % patchIndications:Ch ronic left-sided low back pain with bilateral sciatica Place 1 Patch onto the skin once daily (every 24 hours) 30 Patch 2 05/11/20 22 Active metFORMIN XR (GLUCOPHAGE-XR) 500 mg 24 hr tabletIndications:T ype 2 diabetes mellitus without complication, without long-term current use of insulin ([facility]) Take 1 Tablet by mouth once daily [...] (BMI) of 45.0 to 49.9 in adult ([facility]) 06/30/2021 Chronic foot pain, right 05/16/2021 Overview (05/16/2021): Report: CR Calcaneus Heel RT [facility] 05/09/2021 HISTORY: The patient is a 50-year-old male with chronic right heel pain, nontraumatic. FINDINGS: AP and lateral radiographs of the right calcaneus are obtained. The study demonstrates no fracture, dislocation, arthritic change, or other bony abnormality. No soft tissue abnormality is seen. IMPRESSION: Normal examination. Report: CR Calcaneus Heel RT Date: 05/09/2021 [facility] HISTORY: The patient is a 50-year-old male with chronic right heel pain, nontraumatic. FINDINGS: AP and lateral radiographs of the right calcaneus are obtained. The study demonstrates no fracture, dislocation, arthritic change, or other bony abnormality. No soft tissue abnormality is seen. IMPRESSION: Normal examination. Prediabetes 12/13/2020 Morbid obesity ([facility]) 11/28/2020 Restless leg syndrome 11/28/2020 Mixed hyperlipidemia 11/28/2020 Major depressive disorder, s harmony episode, severe ([facility]) 02/29/2020 Panic attacks 02/29/2020 MARCELINO (obstructive sleep apnea) 12/04/2019 Overview (07/10/2022): Jun 2022: reports compliance with CPAP Severe depression ([facility]) 07/13/2019 Chronic left-sided low back pain with left-sided sciatica 04/16/2016 Overview (07/27/2016): [facility]-07/01/2016- Discussed trial of joint injections. Tendinitis of right rotator cuff 10/15/2014 Overview (03/23/2015): With impingement. Injection therapy NEOS GERD (gastroesophageal reflux disease) 5 Hypertriglyceridemia 06/06/2014 HTN (hypertension) 05/03/2014 Resolved Problems Problem Noted Date Diagnosed Date Resolved Date Morbid obesity with BMI of 4 0.0-44.9, adult ([facility]) 05/15/2015 07/10/2022 Immunizations Immunization Administration [...] icated (All Coverage) 07/10/2023 07/10/2022, 12/07/2016, 05/15/2015 Alcohol and Drug Screen 06/28/2024 07/10/19 23, 09/10/2021, 08/27/2020, Additional history exists [id number] ( season) 2025 07/10/2022, 12/09/2021, 05/30/2021, Additional history exists Imm-Influenza (#1) 2025 07/10/2022, [...] EDT) GLUCOSE 170(H) 65 - 139 mg/dL [employer] [facility] Comment: Non-fasting reference interval UREA NITROGEN (BUN) 13 7 - 25 mg/dL [facility] CREATININE (blood) 0.89 0.70 - 1.33 mg/dL [facility] Comment: For patients >49 years of age, the reference limit for Creatinine is approximately 13% higher for people identified as -Iraqi. GFR ESTIMATED 100 > OR = 60 mL/min/1 .73m2 [employer] EGFR 116 > OR = 60 mL/min/1 .73m2 [employer] [facility] BUN/CREATININE RATIO NOT APPLICABLE 6 - 22 [facility] SODIUM 138 135 - 146 mmol/L [employer] [facility] POTASSIUM 4.4 3.5 - 5.3 mmol/L [employer] [facility] CHLORIDE 105 98 - 110 mmol/L [facility] CARBON DIOXIDE 25 20 - 32 mmol/L [employer] CALCIUM 9.1 8.6 - 10.3 mg/dL [facility] Blood Blood / Unknown 09/12/2021 1 0:04 AM EDT 09/12/2021 10:05 AM EDT Narrative [employer] [facility] - 09/15/2021 12:25 PM EDT FASTING:NO us Anna Marie Kenny PA-C LAB - BLOOD DRAW Edited Result - Final [employer] [facility] [address] [address], [employer] [facility] [address] [address] * (ABNORMAL) LIPID PANEL (12/06/2020 9:28 AM EDT) CHOLESTEROL, TOTAL 158 <200 mg/dL [employer] HDL CHOLESTEROL 41 > OR = 40 mg/dL [employer] TRIGLYCERIDES 216(H) <150 mg/dL [employer] [facility] Comment: If a non-fasting specimen was collected, consider repeat triglyceride testing on a fasting specimen if clinically indicated. Carmen et al. J. of Clin. Lipidol. 2015;9:129-169. LDL-CHOLESTEROL 86 99 mg/dL (calc) [employer] [facility] Comment: Reference range: <100 Desirable range <100 mg/dL for primary prevention; <70 mg/dL for patients with CHD or diabetic patients with > or = 2 CHD risk factors. LDL-C is now calculated using the April calculation, which is a validated novel method providing better accuracy than the Friedewald equation in the estimation of LDL-C. Kartik GALVAN et al. SALLY. 2013;310(19): 2249-8339 (http://education.G4S/faq/JWP971) CHOL/HDLC RATIO 3.9 <5.0 (calc) [employer] [facility] NON-HDL CHOLESTEROL 117 <130 mg/dL (calc) [facility] [facility] Comment: For patients with diabetes plus 1 major ASCVD risk factor, treating to a non-HDL-C goal of <100 mg/dL (LDL-C of <70 mg/dL) is considered a therapeutic option. Blood Blood / Unknown 12/06/2020 9 :28 AM EDT 12/06/2020 9:29 AM EDT Anna Marie Kenny PA-C LAB - BLOOD DRAW Edited Result - Final Performing Organization Address City/[facility]/ZIP Co de Phone Number [employer] [facility] [address] [address], [employer] [facility] [address] [address] * HIV-1 & HIV-2 ANTIBODIES (01/23/2019 3:51 PM EDT) [facility] HIV 1 AND 2 ANTIBODY SCREEN [...] PM EDT 01/23/2019 3:55 PM EDT Narrative [facility] - 01/23/2019 8:04 PM EDT [employer], a member of [address] [address] Microarray Analyst - Tracey Clark MD [place] ID [id number] ORD# [id number] Naresh Mendez NP LAB - BLOOD DRAW Final Result [address] [address], * HISTORIC COLONOSCOPY (07/24/2016 3:00 AM EST) 07/24/2016 3:00 AM EST Anna Marie GOLDBERG-Helio PROCEDURES Final Result * HEPATITIS A,B,C PANEL (05/03/2014 8:06 PM EST) HEPATITIS B SURFACE ANTIBODY NEGATIVE NEGATIVE [facility] HEPATITIS B SURFACE ANTIGEN NEGATIVE NEGATIVE [facility] HEPATITIS C VIRUS ANTIBODY NEGATIVE NEGATIVE [facility] HEPATITIS B CORE ANTIBODY NEGATIVE NEGATIVE [facility] HEPATITIS A ANTIBODY TOTAL NEGATIVE NEGATIVE [facility] Blood specimen (specimen) Blood / Unknown 05/03/2014 8:06 PM EST 05/04/2014 12:52 AM EST Narrative [facility] - 05/04/2014 1:04 PM EST [facility] [address] [place] [address] PT ID [id number] ORD# [id number] Rissa Petersen DNP LAB - BLOOD DRAW Edited Res ult - Final [facility] [address] [place] [address], from Last 3 Months or Most Recently Relevant to Health Maintenance Insurance [place] MEDICAID DENTAL [facility] DENTAL [employer] [facility] [place] [id number] [place] [address]TH PARTNERSHIP Care Teams Mailroom Personnel Relationship Specialty Start Date End Date Dannie Morales FNP [address] [place] [address] PCP - General Family Medicine, MANAGER PLANT 06/29/23
--- OUTSIDE RECORDS SUMMARY | 2025-03-21 12:35 | XMS_ITS | Clinical Summary ---
Author Organization [facility] it Address [address] [place] [address] Care Team Providers Care Privacy Attorney Name Role Phone Unavailable Primary Care Provider [...] 05/27/2022 Social Influencers of Health Screening 05/27/2022 Depression Screening 06/28/2024 COVID-19 Vaccine (1 - 2023-2 5 season) 2025 Influenza Vaccine (#1) 2025 HIB Vaccines Aged [...]
--- OUTSIDE RECORDS SUMMARY | 2025-03-21 12:35 | XMS_ITS | Encounter Summary ---
Author Organization [facility] Address [address] [place] [address] Care Team Providers Care Radiotelegraph Operator Servicer Name Role Phone Dannie Morales Primary Care Provider [phone] Encounter Details Date Type Department Care Team (Late st Contact Info) Description 09/02/2022 / TELEPHONE [facility] [address] [place] [id number] Lacie Mart [address] [place] [address] Social History Tobacco Use Types Packs/Day Years [...] documented as of this encounter Care Teams Radiotelegraph Operator Servicer Relationship Specialty Start Date End Date Dannie Morales FNP [facility] [place] [address] PCP - General Family Medicine, CHRONIC DISEASE EPIDEMIOLOGIST 06/29/23 documented as of this encounter
== END 2025-03-21 11:13 | disposition home or self-care (01) ==
LOC: HO.HBST 10:15
PROVIDERS: PCP Internal Medicine; Visit Provider Counselor Mental Health
DX: F43.20 Adjustment disorder, unspecified (principal)
CPT/HCPCS: 90834

== ENCOUNTER 2025-03-27 10:40 | Outpatient (AMB) | payer MEDICARE, MEDICAID, SELFPAY ==
--- NOTE | 2025-03-27 10:57 | A.OFFVIS_ITS ---
Vital Signs 03/27/25 10:58 Height 6 ft Weight 308 lb 6.827 oz BMI 41.8 BP 150/90 H Blood Pressure Location Lt brachial Position Sitting Pulse 73 Pulse Source Pulse Oximeter Pulse Oximetry (%) 95 Oxygen Delivery Method Room Air Intake Visit Reasons: joint pain Intake Note: New patient presents today for joint pain. Patient states that he has pain in bilateral hips down to feet. Food Sales Clerk Required: Yes Food Sales Clerk Name: [email or web address] [id number] Information Interpreted: non-clinical & clinical Accompanied by: Self / Same As Patient Allergies aspirin Allergy (Verified 03/27/25 11:01) Unknown HPI HPI joint pain: Details: New patient evaluation. Zambian speaking. Video policy change clerk used. He has pain in bilateral lateral hips and buttocks region for 5 years. Pain radiates to knees and feet (tip of toes). He has numbness in his toes. Pain is during the day. Takes tylenol PRN pain. Climbing stairs or lifting weight can aggravate the pain. It can occur spontaneously. Pain is described as burning but can be variable. Sometimes ankles or left knee can be swollen. Hx of neuropathy on pregabalin. He does not know why he has neuropathy. No family history of rheumatological disease. Medication list reviewed with patient. Medication history reviewed. [facility] Medical History Diabetes mellitus type 2 in obese Anxiety Depressed High cholesterol HTN (hypertension) Meniscus, lateral, derangement Left sided sciatica Gout Vitamin D deficiency Surgical History History of ventral hernia repair Duodenal ulcer Family History Mother Diabetes Father Diabetes Family/Other Mental health disorder Sister Colon cancer Social History Housing: Apartment Alcohol intake: never Patient Tobacco Use Status: Never used Tobacco e-Cigarette/Vaping Use: Never Used Second Hand Smoke Exposure: No service: No Current occupational status: disabled Cognitive needs: Yes Hearing needs: No Vision needs: Yes Physical Exam Vital Signs: Last Vital Signs Pulse 73 03/27/25 10:58 BP 150/90 H 03/27/25 10:58 Pulse Ox 95 03/27/25 10:58 Oxygen Delivery Method Room Air 03/27/25 10:58 BMI result Body Mass Index 41.8 Const Other: General: Comfortable CVS: RRR Respiratory: clear to auscultation bilaterally. Good respiratory effort Skin: No lesions seen MSK: No synovitis. Tender to palpate trochanteric bursae. Normal range of motion of bilateral hips. Tender to palpate bilateral knees. Knees flex 90 degrees. Normal lumbar flexion. Assessment & Plan Assessment & Plan (1) Greater trochanteric bursitis of both hips: Comment: Uncontrolled pain. Likely radiation from trochanteric bursa is contributing to buttocks pain versus gluteal musculoskeletal strain Code(s): M70.61 - Trochanteric bursitis, right hip; M70.62 - Trochanteric bursitis, left hip Category: Medical Plan: We discussed conservative management. Avoid oral NSAIDs in setting of aspirin allergy Take Tylenol extra strength or Arthritis strength 1-2 tablets b.i.d. PT ordered for lower extremity strengthening Information in Zambian printed for patient Return to clinic in 3-4 months. Can consider cortisone injection if pain progresses (2) Bilateral knee pain: Code(s): M25.561 - Pain in right knee; M25.562 - Pain in left knee Category: Medical Plan: Bilateral knee x-rays ordered PT ordered for lower extremity strengthening Return to clinic in 3-4 months Orders: Orders PT Evaluation and Treatment Today M25.561 - Pain in right knee, M25.562 - Pain in left knee, M70.61 - Trochanteric bursitis, right hip, M70.62 - Trochanteric bursitis, left hip XR Knee Adams 3V Today M25.561 - Pain in right knee, M25.562 - Pain in left knee Coding Level of Care Code New Pt Level 4 (50109) Diagnoses Greater trochanteric bursitis of both hips M70.61; M70.62 Bilateral knee pain M25.561; M25.562
[2025-03-27 10:58] VITALS: BP 150/90; PULSE 73; O2SAT 95; BMI 41.8
--- OUTSIDE RECORDS SUMMARY | 2025-03-27 11:59 | XMS_ITS | Clinical Summary ---
Author Organization [facility] Address [address] [place] [address] Care Team Providers Care Data Coder Operator Name Role Phone Dannie Morales Primary Care Provider [phone] Source Comments PLEASE NOTE, if this patient [...] mcg/actuation nasal sprayIndications:Se asonal allergies Place 1 [place] in both nostrils once daily 16 g 2 05/11/20 22 Active lidocaine (LIDODERM) 5 % patchIndications:Ch ronic left-sided low back pain with bilateral sciatica Place 1 Patch onto the skin once daily (every 24 hours) 30 Patch 2 05/11/20 22 Active metFORMIN XR (GLUCOPHAGE-XR) 500 mg 24 hr tabletIndications:T ype 2 diabetes mellitus without complication, without long-term current use of insulin Take 1 Tablet by mouth once daily [...] Overview (05/16/2021): Report: CR Calcaneus Heel RT [facility] [place] HISTORY: The patient is a 50-year-old male with chronic right heel pain, nontraumatic. FINDINGS: AP and lateral radiographs of the right calcaneus are obtained. The study demonstrates no fracture, dislocation, arthritic change, or other bony abnormality. No soft tissue abnormality is seen. IMPRESSION: Normal examination. Report: CR Calcaneus Heel RT Date: 05/09/2021 [facility] HISTORY: The patient is a 50-year-old male with chronic right heel pain, nontraumatic. FINDINGS: AP and lateral radiographs of the right calcaneus are obtained. The study demonstrates no fracture, dislocation, arthritic change, or other bony abnormality. No soft tissue abnormality is seen. IMPRESSION: Normal examination. Prediabetes 12/13/2020 Morbid obesity 11/28/2020 Restless leg syndrome 11/28/2020 Mixed hyperlipidemia 11/28/2020 Major depressive disorder, single episode, sever e 02/29/2020 Panic attacks 02/29/2020 MARCELINO (obstructive sleep apnea) 12/04/2019 Overview (07/10/2022): Jun 2022: reports compliance with CPAP Severe depression 07/13/2019 Chronic left-sided low back pain with left-sided sciatica 04/16/2016 Overview (07/27/2016): [facility]-07/01/2016- Discussed trial of joint injections. Tendinitis of right rotator cuff 10/15/2014 Overview (03/23/2015): With impingement. Injection therapy NEOS GERD (gastroesophageal reflux disease) 5 Hypertriglyceridemia 06/06/2014 HTN (hypertension) 05/03/2014 Resolved Problems Problem Noted Date Diagnosed Date Resolved Date Morbid obesity with BMI of 4 0.0-44.9, adult ([facility]) 05/15/2015 07/10/2022 Immunizations Immunization Administration Dates [...] 07/10/19 23, 09/10/2021, 08/27/2020, Additional history exists [id number] ( season) 2025 07/10/2022, 12/09/2021, 05/30/2021, Additional [...] EDT) GLUCOSE 170(H) 65 - 139 mg/dL [facility] Comment: Non-fasting reference interval UREA NITROGEN (BUN) 13 7 - 25 mg/dL [facility] CREATININE (blood) 0.89 0.70 - 1.33 mg/dL [facility] Comment: For patients >49 years of age, the reference limit for Creatinine is approximately 13% higher for people identified as -[place]. GFR ESTIMATED 100 > OR = 60 mL/min/1 .73m2 [facility] EGFR 116 > OR = 60 mL/min/1 .73m2 [facility] BUN/CREATININE RATIO NOT APPLICABLE [facility] SODIUM 138 135 - 146 mmol/L [facility] POTASSIUM 4.4 3.5 - 5.3 mmol/L [facility] CHLORIDE 105 98 - 110 mmol/L [facility] CARBON DIOXIDE 25 20 - 32 mmol/L [facility] CALCIUM 9.1 8.6 - 10.3 mg/dL [facility] Blood Blood / Unknown 09/12/2021 1 0:04 AM EDT 09/12/2021 10:05 AM EDT Narrative [employer] - 09/15/2021 12:25 PM EDT FASTING:NO Anna Marie Kenny PA-C LAB - BLOOD DRAW Edited Result - Final [facility] [address] [address], [facility] [address] [address] * (ABNORMAL) LIPID PANEL (12/06/2020 9:28 AM EDT) CHOLESTEROL, TOTAL 158 <200 mg/dL [facility] HDL CHOLESTEROL 41 > OR = 40 mg/dL [facility] TRIGLYCERIDES 216(H) <150 mg/dL [facility] Comment: If a non-fasting specimen was collected, consider repeat triglyceride testing on a fasting specimen if clinically indicated. Carmen et al. J. of Clin. Lipidol. 2015;9:129-169. LDL-CHOLESTEROL 86 99 mg/dL (calc) [facility] Comment: Reference range: <100 Desirable range <100 mg/dL for primary prevention; <70 mg/dL for patients with CHD or diabetic patients with > or = 2 CHD risk factors. LDL-C is now calculated using the April calculation, which is a validated novel method providing better accuracy than the Friedewald equation in the estimation of LDL-C. Kartik SS et al. SALLY. 2013;310(19): 5081-0791 (http://education.Modern Guild/faq/EDM318) CHOL/HDLC RATIO 3.9 <5.0 (calc) [facility] NON-HDL CHOLESTEROL 117 <130 mg/dL (calc) [facility] Comment: For patients with diabetes plus 1 major ASCVD risk factor, treating to a non-HDL-C goal of <100 mg/dL (LDL-C of <70 mg/dL) is considered a therapeutic option. Blood Blood / Unknown 12/06/2020 9 :28 AM EDT 12/06/2020 9:29 AM EDT Anna Marie Kenny PA-C LAB - BLOOD DRAW Edited Result - Final [facility] [address] [address], [facility] [address] [address] * HIV-1 & HIV-2 ANTIBODIES (01/23/2019 3:51 PM EDT) [facility] HIV 1 AND 2 ANTIBODY SCREEN NEGATIVE NEGATIVE [facility] Comment: This assay is a [...] PM EDT 01/23/2019 3:55 PM EDT Narrative [facility] - 01/23/2019 8:04 PM EDT [employer], a member of [address] [address] Statistical Clerk - Tracey Clark MD [place] ID [id number] ORD# [id number] Naresh Mendez NP LAB - BLOOD DRAW Final Result Performing Organization Address City/[facility]/ZIP Co de Phone Number [address] [address], * HISTORIC COLONOSCOPY (07/24/2016 3:00 AM EST) 07/24/2016 3:00 AM EST Anna Marie Kenny PA-C PROCEDURES Final Result * HEPATITIS A,B,C PANEL (05/03/2014 8:06 PM EST) HEPATITIS B SURFACE ANTIBODY NEGATIVE NEGATIVE [facility] HEPATITIS B SURFACE ANTIGEN NEGATIVE NEGATIVE [facility] HEPATITIS C VIRUS ANTIBODY NEGATIVE NEGATIVE [facility] HEPATITIS B CORE ANTIBODY NEGATIVE NEGATIVE [facility] HEPATITIS A ANTIBODY TOTAL NEGATIVE NEGATIVE [facility] Blood specimen (specimen) Blood / Unknown 05/03/2014 8:06 PM EST 05/04/2014 12:[address] [facility] - 05/04/2014 1:04 PM EST [facility] [employer] [address] [place] [address] PT ID [id number] ORD# [id number] Rissa Petersen DNP LAB - BLOOD DRAW Edited Res ult - Final [facility] [address] [place] [address], from Last 3 Months or Most Recently Relevant to Health Maintenance Insurance [place] MEDICA[place] DENTAL HEALTH SAFETY NET [facility] Care Teams Data Coder Operator Relationship Specialty Start Date End Date Dannie Morales FNP [address] [place] [address] PCP - General Family Medicine, SENIOR FOREMAN 06/29/23
--- OUTSIDE RECORDS SUMMARY | 2025-03-27 11:59 | XMS_ITS | Encounter Summary ---
Author Organization [facility] Address [address] [place] [address] Care Team Providers Care Supervisor Particleboard Name Role Phone Dannie Morales Primary Care Provider [phone] Encounter Details Date Type Department Care Team (Late st Contact Info) Description 09/02/2022 / TELEPHONE [facility] [address] [place] [phone] Lacie Mart [address] [place] [address] Social History Tobacco Use Types Packs/Day Years [...] Diagnoses Diagnosis Major depressive disorder, single episode, severe- Primary Major depressive disorder, single episode, severe, without mention of psychotic behavior Low income Inadequate material resources Insufficient social insurance or welfare support Other specified housing or economic circumstances documented in this encounter Additional Health Concerns Assessment Noted Time PHQ-9 Depression Total Score: 1 07/10/19 23 4:18 PM PST documented as of this encounter Care Teams Supervisor Particleboard Relationship Specialty Start Date End Date Dannie Morales FNP [address] [place] [address] PCP - General Family Medicine, SENIOR GRADUATE ADVISOR 06/29/23 documented as of this encounter
--- OUTSIDE RECORDS SUMMARY | 2025-03-27 11:59 | XMS_ITS | Clinical Summary ---
Author Organization [facility] it Address [address] [place] [address] Care Team Providers Care Photo Journalist Name Role Phone Unavailable Primary Care Provider Unavailabl e Social History Tobacco Use Types Packs/Day Years Used Date Smoking Tobacco: Never Assessed Sex and Gender Information Value Date Recorded Sex Assigned at Not on file Legal Sex Male 4:41 PM EST Gender Identity Not on file Sexual Orientation Not on file Plan of Treatment Health Maintenance Due Date Last Done Comments Colorectal Cancer Screening: Colonoscopy 1970 DTaP,Tdap,and Td Vaccines (1 - Tdap) 1989 Hepatitis B Vaccines (1 of 3 - 19+ 3-dose series) 1989 Pneumococcal Vaccine: 50+ Ye ars (1 of 1 - PCV) 2020 Zoster Vaccines (1 of 2) 2020 Cholesterol Screening (Lipid Panel) 05/27/2022 HIV Screening 05/27/2022 Hepatitis C Screening 05/27/2022 Social Influencers of Health Screening 05/27/2022 Depression Screening 06/28/2024 COVID-19 Vaccine (1 - 2023-2 5 season) 2025 Influenza Vaccine (#1) 2025 RSV Immunization Adult Patie nts (1 - 1-dose 75+ series) 2045 HIB Vaccines Aged Out No longer eligi [...]
== END 2025-03-27 11:50 | disposition home or self-care (01) ==
LOC: HO.RHES 10:41
PROVIDERS: PCP Internal Medicine; Visit Provider Internal Medicine Rheumatology
DX: M70.61 Trochanteric bursitis, right hip (principal); M70.62 Trochanteric bursitis, left hip; M25.561 Pain in right knee; M25.562 Pain in left knee
CPT/HCPCS: 99204

== ENCOUNTER → 2025-03-27 10:40 | Outpatient (BNVA) | payer MEDICARE, MEDICAID, SELFPAY | PROVIDERS: PCP Internal Medicine; Visit Provider Internal Medicine Rheumatology | DX: M70.62 Trochanteric bursitis, left hip (principal); M70.61 Trochanteric bursitis, right hip; M25.561 Pain in right knee; M25.562 Pain in left knee | CPT/HCPCS: 99202 ==

== ENCOUNTER 2025-05-02 09:23 | Outpatient (REF) | payer MEDICARE, MEDICAID, SELFPAY ==
--- OUTSIDE RECORDS SUMMARY | 2025-05-02 10:29 | XMS_ITS | Clinical Summary ---
Author Organization [facility] it Address [address] [place] [address] Care Team Providers Care Porter Baggage Name Role Phone Unavailable Primary Care Provider [...]
[2025-05-02 14:15] LABS: Microalbum/Creatinine Ratio Ur 8.2 ug/mg cr (<30)
[2025-05-02 14:21] LABS: Alanine Aminotransferase 41 U/L (0-40); Albumin Level 4.5 g/dL (3.5-5.0); Alkaline Phosphatase 91 U/L (39-117); Anion Gap 11 (12-20); Aspartate Amino Transferase 33 U/L (5-37); Blood Urea Nitrogen 16 mg/dL (9-16); Calcium 9.7 mg/dL (8.4-10.2); Carbon Dioxide 30 mmol/L (22-29); Chloride 106 mmol/L (96-108); Cholesterol 221 mg/dL (<200); Estimated Glomerular Filt Rate > 60; HDL Cholesterol 49 mg/dL (>40); Potassium 4.1 mmol/L (3.3-5.1); Sodium 143 mmol/L (135-145); Total Protein 7.6 g/dL (6.5-8.0); Triglycerides 152 mg/dL (<150)
== END 2025-05-02 09:24 | disposition home or self-care (01) ==
LOC: HO.HKASLDS 09:23
PROVIDERS: PCP Internal Medicine; Visit Provider Internal Medicine
DX: E66.01 Morbid (severe) obesity due to excess calories (principal); E55.9 Vitamin D deficiency, unspecified; E78.5 Hyperlipidemia, unspecified; R80.9 Proteinuria, unspecified; Z68.41 Body mass index [BMI] 40.0-44.9, adult
CPT/HCPCS: 36415; 80053; 80061; 82043; 82306; 82570